=== PATIENT | female | born 1950 | race Caucasian/White ===

== ENCOUNTER → 2017-01-22 | Outpatient (REF) | payer MEDICARE, OTHER ==
[~2017-01-22] MED LIST: ALLE180T33 PO; ASPI81TA85 PO; ESTR3TA PO; LEXA1TAB PO; VITA1TAB7 PO; VITAD1000T PO; ZIAC1TAB PO
== END ==
LOC: M LAB REF 17:20
PROVIDERS: ATTEND Nurse Practitioner Adult Health
DX: Z01.89 Encounter for other specified special examinations (principal)

== ENCOUNTER → 2017-05-22 | Outpatient (CLI) | payer MEDICARE, OTHER ==
--- NOTE | 2017-05-22 10:22 | REP ---
BILATERAL DIGITAL SCREENING MAMMOGRAM: 05/22/2017 CLINICAL HISTORY: Screening examination. She has no current complaints, personal or family history of breast cancer. COMPARISON: 05/20/2016, 05/12/2015, 02/09/2014 mammogram. FINDINGS. Standard two-view mammography performed. There are scattered fibroglandular elements in a pattern and distribution is generally symmetric and not much change from multiple prior studies. Scattered small benign appearing calcifications are present of doubtful clinical significance. Scattered lymph nodes are seen in the axilla. there is no dominant mass, clustered microcalcification, skin thickening or architectural distortion or other secondary signs of malignancy. However, there is a small nodular area of tissue asymmetry left breast on the CC view only as a change from multiple prior studies. IMPRESSION: BIRADS ACR category 0, incomplete, additional imaging acquired. A left spot CC view and any other images and/or breast ultrasound should be performed at the discretion of the reviewing radiologist at the time of that diagnostic examination. BI-RADS/ACR category 0 mammogram, incomplete. Additional imaging and/or prior images are needed before a final assessment can be assigned. This mammogram was interpreted with the aid of an FDA-approved computer-aided detection system. A. Negative x-ray reports should not delay biopsy if a dominant or clinically suspicious mass is present. B. Four to eight percent of cancers are not identified by x-ray. C. Adenosis and dense breasts may obscure an underlying neoplasm. The patient states she/he had a clinical breast exam in November 2015. The patient letter being requested is M0.
== END ==
LOC: M WHC 08:57
PROVIDERS: ATTEND Nurse Practitioner Adult Health
DX: Z12.31 Encounter for screening mammogram for malignant neoplasm of breast (principal)

== ENCOUNTER → 2017-05-27 | Outpatient (CLI) | payer MEDICARE, OTHER ==
--- NOTE | 2017-05-27 14:39 | REP ---
DIAGNOSTIC MAMMOGRAM LEFT BREAST WITH LEFT BREAST ULTRASOUND: Diagnostic mammogram left breast performed with multiple compression views obtained. Correlation is made with prior study of 05/22/2017, which showed some mild asymmetric fibroglandular density in the left breast. The spot compression views again show ill-defined fibroglandular density laterally on the left CC view. Based on the rolled views, this is located inferiorly in the left breast. The left MLO and ML views show no change compared to multiple prior exams. Real-time sonographic evaluation of the lower outer left breast demonstrates dense fibroglandular tissue with scattered dilated ducts, but no suspicious cystic or sold nodule. IMPRESSION: ACR 3 probably benign. There does appear to be some mild asymmetric fibroglandular tissue in the lower outer left breast. This has a nonsuspicious appearance on the spot compression views and no suspicious sonographic abnormality is seen in this region. The findings are probably benign. Recommend followup mammogram of the left breast in six months. BI-RADS/ACR category 3 mammogram. Probably benign findings. Initial short-term followup (usually 6 month) examination. This mammogram was interpreted with the aid of an FDA-approved computer-aided detection system. The patient letter being requested is M3. Signed by Hilario Lovelace MD 05/27/2017 05:05 P
== END ==
LOC: M RAD 11:54
PROVIDERS: ATTEND Nurse Practitioner Adult Health
DX: N60.32 Fibrosclerosis of left breast (principal)
CPT/HCPCS: 76642; G0206

== ENCOUNTER → 2018-05-25 | Outpatient (CLI) | payer MEDICARE, OTHER | LOC: M RAD 08:48 | DX: N60.32 Fibrosclerosis of left breast (principal); Z12.31 Encounter for screening mammogram for malignant neoplasm of breast (principal); Z09 Encounter for follow-up examination after completed treatment for conditions other than malignant neoplasm | CPT/HCPCS: 77066 ==

== ENCOUNTER → 2019-01-05 | Outpatient (CLI) | payer MEDICARE, OTHER ==
--- NOTE | 2019-01-05 14:43 | REP ---
DIGITAL DIAGNOSTIC UNILATERAL LEFT BREAST MAMMOGRAPHY WITH CAD AND 3D TOMOGRAPHY: HISTORY: BIRADS category 3 probably benign study. 6-month followup exam. Comparison is made with prior left breast imaging from May 25, 2018, January 20, 2018, May 27, 2017. FINDINGS: Routine views of the left breast are augmented by magnified focal spot views. These demonstrate that the area in question in the inferomedial aspect of the left breast appears unchanged over the interval since the May 27, 2017 prior study. No neodensity is seen. There are scattered secretory calcifications. Normal appearing lymph nodes are visible in the left axilla. No worrisome skin change. IMPRESSION: BIRADS 3: BI-RADS/ACR category 3 mammogram. Probably Benign Findings. Stable BIRADS category 3 probably benign left breast mammography. Repeat bilateral mammography recommended in 6 months, screening study on the right. This mammogram was interpreted with the aid of an FDA-approved computer-aided detection system. The patient states she had a clinical breast exam in January 2018. The patient letter being requested is m3. Electronically Signed by Stanislaw Betancourt MD 01/05/2019 05:15 P
== END ==
LOC: M RAD 11:05
PROVIDERS: ATTEND Nurse Practitioner Adult Health
DX: R92.1 Mammographic calcification found on diagnostic imaging of breast (principal)
CPT/HCPCS: 77065; G0279

== ENCOUNTER 2019-07-11 10:31 | Inpatient (IN) | payer MEDICARE, OTHER ==
[~2019-07-11] VITALS: Ht 157.5 cm; Wt 86.3 kg
[~2019-07-11 10:31] MED LIST changes: +CHOL100029 PO; -VITAD1000T PO
[2019-07-11] MEDS ORDERED: VITA100T90 PO (11:27)
[2019-07-11] MEDS ORDERED: MAGN1CAP PO (11:27)
[2019-07-11] MEDS ORDERED: KRIL1CAP6 PO (11:27)
[2019-07-11] MEDS ORDERED: CVS5000S2 PO (11:27)
--- NOTE | 2019-07-11 12:39 | REP ---
CT BRAIN WITHOUT CONTRAST: HISTORY: Chronic headache. No comparison study. CT FINDINGS: Digital preliminary toe stapler radiograph is unremarkable. On bone window settings, the bony calvarium is intact. There is some vascular calcification in the distal carotid arteries bilaterally. There is no evidence of paranasal sinus or intraorbital disease. On soft tissue window settings, there is an ill-defined low density area in the right occipital lobe consistent with recent infarction. No other infarct is seen. There is no evidence of intracranial hemorrhage. No mass or midline shift is seen. IMPRESSION: Low density in the right occipital lobe consistent with recent infarction. No hemorrhage seen. Vascular calcification. Otherwise negative. Electronically Signed by Stanislaw Betancourt MD 07/11/2019 05:17 P
[2019-07-11] MEDS ORDERED: diphenhydrAMINE INJ 50MG/ML VIAL (J1200) IV ONE (13:00)
[2019-07-11] MEDS ORDERED: NS 1,000 ML IV ONE (13:00)
[2019-07-11] MEDS ORDERED: dexameTHASONE 4 MG/ML 1ML VIAL (J1100) IV ONE (13:00)
[2019-07-11] MEDS ORDERED: KETOROLAC 30 MG/ML VIAL (J1885) IV ONE (13:00)
[2019-07-11] MEDS ORDERED: METOCLOPRAMIDE INJ 10MG/2ML VIAL (J2765) IV ONE (13:00)
[2019-07-11] MEDS ORDERED: MAG SULF 1GM/100ML (MAG RUN) 1 GM in APPROPRIATE DILUENT 1 EA IV ONE (13:00)
[2019-07-11] MEDS ORDERED: SUMAtriptan SUCCINATE 6 MG/0.5 ML VIAL SC ONE (15:45)
[2019-07-11] MEDS ORDERED: ASPIRIN 81 MG CHEW TABLET PO ONE (16:30)
[2019-07-11] MEDS ORDERED: SIMVASTATIN 40 MG TAB PO ONE (16:45)
[2019-07-11 16:53] LABS: BASO % 0.4 % (0.0-1.0); EOS # 0.1 10^3/uL (0.0-0.5); EOS % 1.3 % (0.0-3.0); HEMATOCRIT 39.4 % (36.0-47.0); HEMOGLOBIN 13.1 g/dl (12.0-15.5); LYMPH # 2.3 10^3/uL (1.5-5.0); LYMPH % 21.7 % (24.0-44.0); MEAN CORPUSCULAR HEMOGLOBIN 30.5 pg (27.0-33.0); MEAN CORPUSCULAR HGB CONC 33.2 g/dl (32.0-36.5); MEAN CORPUSCULAR VOLUME 91.6 fl (80.0-96.0); MONO # 0.4 10^3/uL (0.0-0.8); MONO % 3.7 % (0.0-5.0); NEUTROPHILS # 7.5 10^3/uL (1.5-8.5); NEUTROPHILS % 72.5 % (36.0-66.0); PLATELET COUNT, AUTOMATED 237 10^3/uL (150-450); WHITE BLOOD COUNT 10.4 10^3/uL (4.0-10.0)
[2019-07-11 17:05] LABS: INR 1.05; PROTHROMBIN TIME 13.4 SECONDS (11.8-14.0)
[2019-07-11 17:30] LABS: ALBUMIN 3.6 GM/DL (3.2-5.2); ALT/SGPT 26 U/L (12-78); BILIRUBIN,DIRECT < 0.1 MG/DL (0.0-0.2); BILIRUBIN,TOTAL 0.4 MG/DL (0.2-1.0); BLOOD UREA NITROGEN 17 MG/DL (7-18); CARBON DIOXIDE LEVEL 27 MEQ/L (21-32); CHLORIDE LEVEL 104 MEQ/L (98-107); GLOMERULAR FILTRATION RATE > 60.0 (>45); GLUCOSE, FASTING 104 MG/DL (70-100); POTASSIUM SERUM 4.2 MEQ/L (3.5-5.1); SODIUM LEVEL 138 MEQ/L (136-145); TOTAL PROTEIN 7.2 GM/DL (6.4-8.2)
[2019-07-11] MEDS ORDERED: ACETAMINOPHEN TAB 650MG DOSE (2X325MG) PO PRN (17:45)
[2019-07-11] MEDS ORDERED: MAALOX 30 ML SUSP *UDC PO PRN (17:45)
--- NOTE | 2019-07-11 18:14 | HPEPDOC ---
[facility] Medical History & Physical Date of Admission Jul 11, 2019 Date of Service: Jul 11, 2019 History and Physical CHIEF COMPLAINT: [CVA] HISTORY OF PRESENT ILLNESS: [This is a 69yo female with pmhx of noninvasive bladder cancer, and htn who presented to the ed for left sided visual field defect since Thursday. Patient said she was in her normal state of health when she bent down to look for her cat and when she got back up she had a headache with left eye lateral visual field defect. She said her headache improved over the past few days and barely there now, but the lateral visual field loss only started improving since she has been in the hospital. She denied fever, chills, chest pain , sob , palpitations, syncope or nausea or vomiting. ] PAST MEDICAL HISTORY: 1. [non invasive bladder ca - receiving 1-2 session of bcg per year ]. 2. [HTN on meds ]. 3. [depression and anxiety ]. PAST SURGICAL HISTORY: 1. [hysterectomy 2/2 fibroids ]. SOCIAL HISTORY: lives with at home retired quit smoking in 1989 - smoked for 20 yrs 1ppd denied etoh , marijuana or drug use FAMILY HISTORY: mother lived to but had multiple TIAs prior father had renal cancer ALLERGIES: Please see below. HOME MEDICATIONS: Please see below. LABORATORY DATA: See below. IMAGING: [ct scan shows- Low density in the right occipital lobe consistent with recent infarction. No hemorrhage seen. Vascular calcification. Otherwise negative. MICROBIOLOGY: Please see below. ROS - all 10 point review of system is negative except for whats listed in HPI Physical exam Gen: NAD, healthy appearing , HEENT: normocephalic, atraumatic, no discharge from ears or nose, no oropharyngeal erythema or exudate, neck is supple, no lymphadenopathy, trachea midline CVS: RRR, normal S1n S2, no murmur, rubs, or gallops, no edema, no jvd Resp: LCTAB, no rhonchi, wheezes or crackles Abd : soft nontender, normal bowel sounds, no rebound tenderness or guarding MSK: no swelling, full range of motion, strength 5/5 Neuro: AOAx3, no confusion, no focal deficit , no pronator drift, no visual fie ld defect - but does c/o central areas of blind spots - vision is improving per pt, sensation and proprioception intact, cn2-12 intact, PERRLA, EOMI , Psych: normal mood and affect, good judgment ASSESSMENT and Plan subacute cva - c/w aspirin and statin - pt senstive to lipitor and prasvastin -f/u mri /mra head and neck -f/u echo TTE - f/u carotid doppler -tele monitor -neuro checks q2-4h - patient advised to inform us immediately of any function or mental status changes - bp elevated - c/w monitoring for now - defer mgt to neurologist -opthalmologist -Dr. Hall aware will see pt in AM -f/u tsh, hba1c and lipid panel -neurologist following htn -hold meds for tonight unless >220/110 bladder ca - outpt mgt dvt ppx full code , from home, no svc Vital Signs Vital Signs Date Time Temp Pulse Resp B/P (MAP) Pulse Ox O2 Delivery O2 Flow Rate FiO2 07/11/19 14:29 98.0 58 18 173/73 (106) 98 Room Air Laboratory Data Labs 24H Laboratory Tests 2 07/11/19 16:42: Prothrombin Time 13.4, Prothromb Time International Ratio 1.05 07/11/19 16:43: Immature Granulocyte % (Auto) 0.4, White Blood Count 10.4H, Red Blood Count 4.30, Hemoglobin 13.1, Hematocrit 39.4, Mean Corpuscular Volume 91.6, Mean Corpuscular Hemoglobin 30.5, Mean Corpuscular Hemoglobin Concent 33.2, Red Cell Distribution Width 12.8, Platelet Count 237, Neutrophils (%) (Auto) 72.5H, Lymphocytes (%) (Auto) 21.7L, Monocytes (%) (Auto) 3.7, Eosinophils (%) (Auto) 1.3, Basophils (%) (Auto) 0.4, Neutrophils # (Auto) 7.5, Lymphocytes # (Auto) 2.3, Monocytes # (Auto) 0.4, Eosinophils # (Auto) 0.1, Basophils # (Auto) 0.0, Nucleated Red Blood Cells % (auto) 0.0, Anion Gap 7L, Glomerular Filtration Rate > 60.0, Calcium Level 9.0, Aspartate Amino Transf (AST/SGOT) 25, Alanine Aminotransferase (ALT/SGPT) 26, Alkaline Phosphatase 65, Total Bilirubin 0.4, Direct Bilirubin < 0.1, Total Protein 7.2, Albumin 3.6, Albumin/Globulin Ratio 1.00 CBC/BMP Laboratory Tests 07/11/19 16:43 Red Blood Count 4.30, Mean Corpuscular Volume 91.6, Mean Corpuscular Hemoglobin 30.5, Mean Corpuscular Hemoglobin Concent 33.2, Red Cell Distribution Width 12.8, Neutrophils (%) (Auto) 72.5 H, Lymphocytes (%) (Auto) 21.7 L, Monocytes (%) (Auto) 3.7, Eosinophils (%) (Auto) 1.3, Basophils (%) (Auto) 0.4, Neutrophils # (Auto) 7.5, Lymphocytes # (Auto) 2.3, Monocytes # (Auto) 0.4, Eosinophils # (Auto) 0.1, Basophils # (Auto) 0.0 Home Medications Scheduled Bisoprolol/Hydrochlorothiazide (Ziac 5-6.25 mg Tablet) 1 Ea Tab, 1 TAB PO DAILY Conjugated Estrogens (Premarin) 0.3 Mg Tab, 0.3 MG PO DAILY Cyanocobalamin (Vitamin B-12) (Vitamin B12) 5,000 Mcg Tab.rapdis, 5,000 MCG PO DAILY Escitalopram Oxalate (Lexapro) 10 Mg Tab, 10 MG PO DAILY Fexofenadine HCl (Alma Allergy) 180 Mg Tab, 180 MG PO DAILY Krill/Om-3/Dha/Epa/Phospho/Ast (Krill Oil 500 mg Softgel) 1 Each Capsule, 1 CAP PO DAILY Magnesium Oxide (Magnesium) 500 Mg Capsule, 500 MG PO BID Pyridoxine HCl (Vitamin B6) (Vitamin B-6) 100 Mg Tablet, 100 MG PO DAILY Vitamin D (Vitamin D3) 1,000 Units Tab, 1,000 UNITS PO DAILY Allergies Coded Allergies: No Known Allergies (Verified Allergy, Unknown, 07/11/19) atorvastatin (Verified Adverse Reaction, Unknown, MUSCLE ACHES, 07/11/19) A-FIB/CHADSVASC A-FIB History Current/History of A-Fib/PAF?: No Current PO Anticoag Therapy: No Age/Risk Factor Scoring CHADSVASC: CHADSVASC Response (Comments) Value Age Risk Factor Age 65-74 years old 1 Gender Risk Factor Female 1 Hx of CHF No 0 Hx of HTN Yes 1 Hx of Stroke/TIA/or VTE Yes 2 Hx of Diabetes No 0 Hx of Vascular Disease No 0 Total 5 Treatment Treatment ordered: NONE Reason Anticoagulant not given: Not indicated/[id number] LIVAN MOORE MD Jul 11, 2019 18:14
[2019-07-11] MEDS ORDERED: PROHANCE 279.3MG/ML 15ML VIAL (A9576) As Ordered ONE (18:38)
[2019-07-11 19:03] LABS: CHOLESTEROL LEVEL 244 MG/DL (<200); CHOLESTEROL RISK RATIO 3.436 (<5); HDL CHOLESTEROL 71 MG/DL (>40); LDL CHOLESTEROL 146 MG/DL (<100); NON-HDL-C 173 MG/DL; TRIGLYCERIDES LEVEL 136 MG/DL (<150); TROPONIN I < 0.02 NG/ML (< 0.10)
[2019-07-11 19:04] LABS: HEMOGLOBIN A1c 5.5 %
--- NOTE | 2019-07-11 20:43 | REPVR ---
PROCEDURE INFORMATION: Exam: MR Head Without Contrast Exam date and time: 07/11/2019 7:24 PM Clinical history: 69 years old, female; Pain; Headache not specified; Patient HX: H/a vertigo, lt sided vision changes, started 3 days ago; Additional info: R occiital lobe stroke TECHNIQUE: Imaging protocol: MR of the head without contrast. COMPARISON: CT Head without contrast 07/11/2019 12:12 PM FINDINGS: Brain: Right occipital true diffusion restriction with correlative cytotoxic edema on the T2-weighted images consistent with subacute infarction in the right [facility] territory. There is no evidence of hemorrhagic conversion. Ventricles: No ventriculomegaly. Bones/joints: Unremarkable. Soft tissues: Unremarkable. Sinuses: Normal as visualized. No acute sinusitis. Mastoid air cells: Normal as visualized. No mastoid effusion. Orbits: Unremarkable. IMPRESSION: Subacute right occipital infarct. Electronically signed by: Vicki Hrendon On 07/11/2019 20:42:44 PM
--- NOTE | 2019-07-11 20:47 | REPVR ---
PROCEDURE INFORMATION: Exam: MR Angiogram Head Without Contrast, Arteries Exam date and time: 07/11/2019 7:24 PM Clinical history: 69 years old, female; Pain; Headache; Patient HX: H/a vertigo, lt sided vision changes, started 3 days ago; Additional info: R occiital lobe stroke TECHNIQUE: Imaging protocol: MR angiogram head without contrast. Exam focused on the arteries. 3D rendering: MIP reconstructed images were created and reviewed. COMPARISON: CT Head without contrast 07/11/2019 12:12 PM FINDINGS: Right internal carotid artery: Unremarkable. Intracranial segment is patent with no significant stenosis. No aneurysm. Right anterior cerebral artery: Unremarkable. No occlusion or significant stenosis. No aneurysm. Right middle cerebral artery: The right middle cerebral artery demonstrates a 2 mm segmental near occlusion in the M1 segment. There is a moderate stenosis in the distal M1 just proximal to the trifurcation. Right posterior cerebral artery: The right posterior cerebral artery demonstrates a segmental occlusion or near occlusion at the junction of the P1 and P2 segments spanning a length of approximately 3 mm. Right vertebral artery: Unremarkable. No occlusion or significant stenosis. No aneurysm. Left internal carotid artery: Unremarkable. Intracranial segment is patent with no significant stenosis. No aneurysm. Left anterior cerebral artery: Unremarkable. No occlusion or significant stenosis. No aneurysm. Left middle cerebral artery: Unremarkable. No occlusion or significant stenosis. No aneurysm. Left posterior cerebral artery: Unremarkable. No occlusion or significant stenosis. No aneurysm. Left vertebral artery: Unremarkable. No occlusion or significant stenosis. No aneurysm. Basilar artery: Unremarkable. No occlusion or significant stenosis. No aneurysm. IMPRESSION: 1. 3 mm segmental occlusion or near occlusion of the right DOORKEEPER at the junction of the P1 and P2 segments. 2. 2 mm segmental near occlusion of the right middle cerebral artery in the M1 segment. Electronically signed by: Vicki Herndon On 07/11/2019 20:47:15 PM
--- NOTE | 2019-07-11 20:51 | REPVR ---
PROCEDURE INFORMATION: Exam: MR Angiography Neck Without Contrast Exam date and time: 07/11/2019 7:37 PM Clinical history: 69 years old, female; Pain; Headache; Patient HX: H/a vertigo, lt sided vision changes, started 3 days ago; Additional info: R occiital lobe stroke TECHNIQUE: Imaging protocol: Magnetic resonance angiography images of the neck without intravenous contrast. 3D rendering: MIP reconstructed images were created and reviewed. Contrast material: PROHANCE; Contrast volume: 25 ml; Contrast route: 20G ANGIO; COMPARISON: MRA BRAIN W/O CONTRAST 07/11/2019 6:33 PM FINDINGS: Right common carotid artery: No definite stenosis or occlusion. Right internal carotid artery: No definite stenosis or occlusion. Right external carotid artery: No definite stenosis or occlusion. Right vertebral artery: No definite stenosis or occlusion. Left common carotid artery: No definite stenosis or occlusion. Left internal carotid artery: No definite stenosis or occlusion. Left external carotid artery: No definite stenosis or occlusion. Left vertebral artery: No definite stenosis or occlusion. IMPRESSION: Considering motion artifacts, no acute vascular findings or significant stenoses suspected in the neck. COMMENT: Reference per NASCET criteria for degree of stenosis: Mild: less than 50% stenosis. Moderate: 50-69% stenosis. Severe: 70-94% stenosis. Near occlusion: 95-99% stenosis. Electronically signed by: Vicki Herndon On 07/11/2019 20:51:11 PM
--- NOTE | 2019-07-11 20:59 | REPVR ---
PROCEDURE INFORMATION: Exam: US Duplex Bilateral Extracranial Arteries Exam date and time: 07/11/2019 8:11 PM Clinical history: 69 years old, female; Other: Headache; Additional info: CVA TECHNIQUE: Imaging protocol: Real-time Duplex ultrasound scan of the Bilateral carotid and vertebral arteries combining lovelace scale, color Doppler and spectral waveform analysis. COMPARISON: MRA CAROTID W/O FOL WITH 07/11/2019 7:09:33 PM FINDINGS: Right common carotid artery: Unremarkable. No occlusion or stenosis. Waveforms are normal. Right internal carotid artery: Lovelace scale images demonstrate mild proximal right ICA plaque. Right ICA/CCA ratio: Within normal limits. 0.92. Right external carotid artery: Lovelace scale images demonstrate mild proximal right ECA plaque. Right vertebral artery: Unremarkable. Antegrade flow Left common carotid artery: Unremarkable. No occlusion or stenosis. Waveforms are normal. Left internal carotid artery: Lovelace scale images demonstrate mild proximal left ICA plaque. Left ICA/CCA ratio: Within normal limits. 0.89. Left external carotid artery: Lovelace scale images demonstrate mild proximal left ECA plaque. Left vertebral artery: Unremarkable. Antegrade flow. IMPRESSION: 1. Some limitations in evaluating the bifurcations are due to the medialized course in the neck. 2. No hemodynamically significant stenoses identified. Less than 50% right ICA stenosis and less than 50% left ICA stenosis. 3. The vertebral arteries appear patent and antegrade. COMMENT: Carotid Stenosis Reference using SRU criteria: Mild: less than 50% stenosis. ICA PSV is less than 125 cm/second and plaque or intimal thickening is visible. Moderate: 50-69% stenosis. ICA PSV is 125 to 230 cm/second and plaque is visible. Severe: 70-94% stenosis. ICA PSV is more than 230 cm/second and visible plaque and lumen narrowing are seen. Near occlusion: 95-99% stenosis. ICA PSV is variable and significant plaque and luminal narrowing are seen. Occluded: 100% stenosis. No flow identified. Electronically signed by: Vicki Herndon On 07/11/2019 20:58:56 PM
[2019-07-11] MEDS: DOCUSATE SODIUM 100 MG CAP PO SCH (21:00)
--- NOTE | 2019-07-11 21:53 | ECGEPIP ---
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
[2019-07-12] VITALS (7 sets, daily range): BP systolic 125–184; BP diastolic 60–80
[2019-07-12 05:51] LABS: HEMATOCRIT 35.8 % (36.0-47.0); MEAN CORPUSCULAR HEMOGLOBIN 30.2 pg (27.0-33.0); MEAN CORPUSCULAR HGB CONC 33.5 g/dl (32.0-36.5); MEAN CORPUSCULAR VOLUME 90.2 fl (80.0-96.0); PLATELET COUNT, AUTOMATED 243 10^3/uL (150-450); RED BLOOD COUNT 3.97 10^6/uL (4.00-5.40); WHITE BLOOD COUNT 12.7 10^3/uL (4.0-10.0)
[2019-07-12 06:10] LABS: BLOOD UREA NITROGEN 18 MG/DL (7-18); CALCIUM LEVEL 8.7 MG/DL (8.8-10.2); CARBON DIOXIDE LEVEL 24 MEQ/L (21-32); CHLORIDE LEVEL 106 MEQ/L (98-107); CREATININE FOR GFR 0.84 MG/DL (0.55-1.30); GLOMERULAR FILTRATION RATE > 60.0 (>45); GLUCOSE, FASTING 128 MG/DL (70-100); MAGNESIUM LEVEL 2.2 MG/DL (1.8-2.4); POTASSIUM SERUM 4.5 MEQ/L (3.5-5.1); SODIUM LEVEL 137 MEQ/L (136-145)
--- NOTE | 2019-07-12 08:53 | CR ---
DATE OF CONSULTATION: 07/12/2019 REQUESTING PROVIDER: Hospitalist. REASON FOR CONSULTATION: Acute stroke. The patient is a 69-year-old female with past medical history significant for episodic vertigo, history of ocular migraines present with chief complaint of having a visual disturbance, seeing a black dark spot out of her left eye since this past Thursday. The patient found that the region did not resolve the way that migraines did and came to the emergency department. Head CT reveals evidence of an acute subacute right occipital lobe stroke. The patient will have an MRI of the brain MR angiogram head and neck as well as start aspirin and statin therapy. The patient's is intolerant to Lipitor on propofol due to myalgias. Alternative statin therapy considered by the primary care team. The patient is noted to have a carotid bruit possible cardiac murmur as well. REVIEW OF SYSTEMS: The patient denies any visual field loss but does have some visual disturbance in her left eye. She sees in the periphery dark [place]. The patient denies any weakness or numbness ataxia, dysarthria, aphasia, vertigo at this time. 14-point review of systems obtained and is negative except as per HPI. PAST MEDICAL HISTORY: Episodic vertigo, history of bladder cancer status post BCG injections for 3 years and surgical resection, hypertension, ocular migraines. PAST SURGICAL HISTORY: Hysterectomy, bladder resection. SOCIAL HISTORY: The patient denies use any tobacco, alcohol or illicit drugs. FAMILY HISTORY: Mother with multiple TIAs. PHYSICAL EXAMINATION: Blood pressure is 172/73, pulse rate is 58, respiratory rate is 18, temperature is 98 degrees Fahrenheit, oxygenation 98 on room air. Current height 5 feet 2 inches, weight 84.5 kg. The patient is awake, alert, oriented to person, place and time. Speech, comprehension, language are intact without aphasia. Pupils are 3 mm round, reactive to light. Extraocular movements are intact in all directions without any significant nystagmus. Sensation V1, V2-V3 is intact to light touch. There is no facial asymmetry on activation palate elevates symmetrically. Tongue is midline. No weakness of sternocleidomastoids bilaterally. Hearing is subjectively equal to finger rub. No pronator drift. Strength is 5/5 including bilateral deltoids, biceps, triceps, handgrip, iliopsoas, quadriceps, anterior tibialis. Deep tendon reflexes are two throughout. Babinski signs are absent. Sensory is intact to light touch in all four extremities. Coordination: Normal [id number] gross ataxia, dysmetria. ASSESSMENT: 1. 69-year-old female with visual disturbance occurring this past Thursday found to have a acute subacute right occipital lobe stroke. PLAN: 1. Obtain MRI brain MR angiogram head without contrast. Obtain MRI carotid with without conscious obtain echocardiogram. Start aspirin 81 mg by mouth daily. Start statin therapy other than Lipitor "the patient could not tolerate", check lipid panel the patient reports diet-controlled. 2. PT OT evaluation. Continue telemetry monitoring. Keep systolic pressures 140-180. 3. Case discussed with primary team.
[2019-07-12] MEDS ORDERED: ASPIRIN 325 MG TAB PO SCH (09:00)
[2019-07-12] MEDS: DOCUSATE SODIUM 100 MG CAP PO SCH ×2 (09:37→20:58)
[2019-07-12] MEDS: ENOXAPARIN 40 MG/0.4 ML SYRINGE (J1650) SC SCH (09:37)
[2019-07-12] MEDS ORDERED: ASPIRIN 81 MG ENTERIC TAB PO SCH (09:49)
[2019-07-12] MEDS: ASPIRIN 81 MG ENTERIC TAB PO SCH (10:18)
[2019-07-12] MEDS ORDERED: TROPICAMIDE 1% OPHTH SOLN 2ML OU ONE (11:00)
[2019-07-12] MEDS ORDERED: PHENYLEPHRINE 2.5% OPHTH SOL 2ML OU ONE (11:00)
--- NOTE | 2019-07-12 19:25 | IPNPDOC ---
Text Note Date of Service The patient was seen on 07/12/19. NOTE Pt was seen at bedside today and states that the headache she had on admission is no longer present. She states she is having some decreased visual acuity in her left peripheral visual field, but on confrontation testing was able to correctly answer my questions. She stated that when looking at my face while 3 feet away directly in front of her she was unable to see my right eye. She denies any other changes, acute problems, acute muscle strength loss, hyperreflexia, or sensation loss. Physical Exam: Pulmonary: Lungs CTA B/L Cardiovascular: Regular rhythm, no murmurs, knocks, rubs noted Abdomen: No pain on palpation or guarding noted. Normal bowel sounds in all 4 quadrants. MSK: Muscle strength 5/5 for UE and LE Flexion and Extension. Cranial Nerves II- XII are intact. Psych: Well-mannered and cooperative to exam. Alert and aware X3 Assessment and Plan: #Subacute CVA: Continue treatment with aspirin, Simvastatin, Enoxaparin and monitor for acute loss of vision or other mental deficits. Patient has received imaging of brain including MRA, MRI, and CT. Patients MRI-melvin demonstrated a right occipital lobe infarct which appears to be subacute. Currently pending echocardiogram report. #HTN: Holding antihypertensives for permissive hypertension per Neurology suggestion with SBP target 140-180. Anticipate starting home medications tomorrow. #DVT Prophylaxis: Continue Enoxaparin Disposition: Awaiting echocardiogram report Clay THAO, I+O VSClay, I+O Laboratory Tests 07/12/19 05:28 Red Blood Count 3.97 L, Mean Corpuscular Volume 90.2, Mean Corpuscular Hemoglobin 30.2, Mean Corpuscular Hemoglobin Concent 33.5, Red Cell Distribution Width 12.4, Calcium Level 8.7 L Vital Signs Date Time Temp Pulse Resp B/P (MAP) Pulse Ox O2 Delivery O2 Flow Rate FiO2 07/12/19 15:47 96.8 73 18 175/73 (107) 97 07/12/19 00:34 Room Air I&O- Last 24 Hours up to 6 AM 07/12/19 05:59 Intake Total 1100 ml Output Total 300 ml Balance 800 ml GME ATTESTATION GME ATTESTATION My faculty preceptor for this patient encounter was physically present during the encounter and was fully available. All aspects of the patient interview, examination, medical decision making process, and medical care plan development were reviewed and approved by the faculty preceptor. The faculty preceptor is aware and concurs with the plan as stated in the body of this note and will attest to such by his/her cosignature. ATTENDING NOTE Patient was seen and examined by me this morning with the residents. Agree with the above assessment and plan KASANDRA PENNY OMS-3 Jul 12, 2019 19:25 PADMINI MEYERS DO Jul 12, 2019 19:27 CORKY JACKSON MD Jul 13, 2019 13:12
[2019-07-12] MEDS ORDERED: SIMVASTATIN 40 MG TAB PO SCH (21:00)
[2019-07-12] MEDS ORDERED: CLOPIDOGREL 75 MG TAB PO ONE (21:45)
--- NOTE | 2019-07-12 23:36 | IPN ---
NEUROLOGY PROGRESS NOTE DATE: 07/12/2019 SUBJECTIVE: The patient examined at bedside and states she feels better today. No longer having any headache, but still endorses blurry vision in the left eye. However, she states that this is improving. She has no complaints. Her blood pressure is still in the permissive hypertension range. The patient is asymptomatic. She underwent Magnetic Resonance Imaging (MRI) of the brain, which confirmed subacute right occipital infarct and Magnetic Resonance Angiography (MRA) that reported significant occlusion of the right MAILING MACHINE HELPER and right middle cerebral artery as well. Is tolerating aspirin and simvastatin well. No paresthesia, slurred speech, confusion, nausea, vomiting, new visual changes, eye pain, or ear pain today. PHYSICAL EXAMINATION: VITALS: Temperature 98.5, pulse 67, respirations 18, blood pressure (BP) 153/69, MAP of 97, pulse oximetry 98% on room air. She is restring comfortably in bed, in no acute distress, alert and oriented times 3, fully conversant. Motor and sensation is fully intact with the patient reporting that she is at baseline. Pupils: Anicteric, equal, round, reactive to light and accommodation. Extraocular movements intact. Facial sensations and sensation in upper and extremities are all intact and equal bilaterally. No facial droop or slurred or tongue deviation. No pronator drift. Negative Babinski. Motor strength is 5/5 in all extremities. The right lower extremity strength has improved from prior day. Normal finger to nose and [id number]. 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 PLAN: Given her significant stenosis of the middle cerebral artery (MCA) and MAILING MACHINE HELPER on the right, the patient should also be started on Plavix and continued on dual antiplatelet therapy, on aspirin 81 mg and Plavix 75 mg and continue on a statin. She appears to be tolerating simvastatin well. Lipid panel reveals uncontrolled levels, which aligns with the patient's history of not taking Lipitor or Pravachol due to arthralgias and myalgias. The importance of compliance was discussed with the patient, who is agreeable to continuing these new medications. Physical therapy (PT) and occupational therapy (OT) for functional optimization and may continue permissive hypertension for a total of 48 hours from the time of admission Continue neuro checks. Echocardiogram is currently pending. Follow-up with Dr. Asencio in clinic in 4-6 weeks of discharge. BROOKLYNN
[2019-07-13] VITALS: BP 150/70
[2019-07-13 04:00] VITALS: BP 146/67
[2019-07-13 07:30] VITALS: BP 136/66
[2019-07-13 08:00] VITALS: BP 152/68
[2019-07-13] MEDS: DOCUSATE SODIUM 100 MG CAP PO SCH (09:00)
[2019-07-13] MEDS ORDERED: BISOPROLOL FUMARATE 5 MG TAB PO SCH (09:00)
[2019-07-13] MEDS ORDERED: HYDROCHLOROthiazide 6.25MG PER 1/4TAB PO SCH (09:00)
[2019-07-13] MEDS ORDERED: CLOPIDOGREL 75 MG TAB PO SCH (09:00)
[2019-07-13] MEDS: ASPIRIN 81 MG ENTERIC TAB PO SCH (09:14)
[2019-07-13] MEDS: ENOXAPARIN 40 MG/0.4 ML SYRINGE (J1650) SC SCH (09:15)
[2019-07-13] MEDS ORDERED: SIMV40TA2 PO (11:08)
[2019-07-13] MEDS ORDERED: CLOP75TA2 PO (11:08)
[2019-07-13 11:47] VITALS: BP 168/78
--- NOTE | 2019-07-13 14:18 | DS.PDOC ---
Discharge Summary General Date of Admission Jul 11, 2019 at 17:36 Date of Discharge 07/13/19 Primary Care Physician: Jr Dejesus Collins Attending Physician: CORKY JACKSON MD Specialist/Consultants Involve: TIA PENNINGTON MD Discharge Summary PROCEDURES PERFORMED DURING STAY: [None]. ADMITTING DIAGNOSES: 1. Subacute CVA DISCHARGE DIAGNOSES: 1. Acute/Subacute right occipital lobe stroke COMPLICATIONS/CHIEF COMPLAINT: CVA. HISTORY OF PRESENT ILLNESS: Patient is a 69 year old female who presented to the [facility] with complaint of visual disturbance described as a black spot in her left temporal visual field since last Thursday. Patient stated that she has a history of episodic vertigo and ocular migraines. She felt her vision issue was secondary to that however it did not resolve. The patient subsequently reported to the ER where a head CT revealed an acute/subacute right occipital stroke. Patient was seen by Neurology in the ER who evaluated her. Patient was started on aspirin, plavix and lipitor. Patient was admitted to hospitalist service and received additional imaging including an MRI of the brain which demonstrated a subacute right occipital infarct. During the patients hospital course she had no new complaints. she continued to have her visual disturbance in her left temporal visual field. Patient was assessed for risk factors. She was found to have hyperlipidemia and HTN. She is a nonsmoker. She was taking Estrogen as an outpatient with a history of ocular migraines. Her estrogen was discontinued. The patient had received an echocardiogram with report pending. On telemetry she demonstrated normal sinus rhythm and patient was discharged with plan to follow-up for echocardiogram results . DISCHARGE MEDICATIONS: Please see below. ALLERGIES: Please see below. PHYSICAL EXAMINATION ON DISCHARGE: VITAL SIGNS: Please see below. GENERAL: Awake, alert and oriented. Appears in no acute distress. Sitting comfortably on side of bed. Conversive HEENT: Atraumatic, normocephalic. Eyes are nonicteric. Trachea is midline. No palpable cervical lymphadenopathy. CARDIOVASCULAR EXAMINATION: Normal S1, S2. Regular rate and rhythm. No clicks rubs, or murmurs. RESPIRATORY EXAMINATION: Clear vesicular breath sounds bilaterally with good re spiratory effort. No wheezes, rhonchi or rales. No accessory muscle use ABDOMINAL EXAMINATION: Soft, nondistended. Nontender to palpation in all 4 quadrants. No rebound tenderness or guarding. Normoactive bowel sounds EXTREMITIES: No edema. Full and equal pulses in bilateral upper and lower extremities. Bilateral high foot arches SKIN: No rashes or lesions NEUROLOGICAL EXAMINATION: CN 2-12 grossly intact. 5/5 strength testing in upper and lower extremities. Sensation intact throughout. PSYCHIATRIC EXAMINATION: Mood and affect appear appropriate for situation LABORATORY DATA: Please see below. IMAGING: CT BRAIN WITHOUT CONTRAST: HISTORY: Chronic headache. No comparison study. CT FINDINGS: Digital preliminary elementary supervisor radiograph is unremarkable. On bone window settings, the bony calvarium is intact. There is some vascular calcification in the distal carotid arteries bilaterally. There is no evidence of paranasal sinus or intraorbital disease. On soft tissue window settings, there is an ill-defined low density area in the right occipital lobe consistent with recent infarction. No other infarct is seen. There is no evidence of intracranial hemorrhage. No mass or midline shift is seen. IMPRESSION: Low density in the right occipital lobe consistent with recent infarction. No hemorrhage seen. Vascular calcification. Otherwise negative. Electronically Signed by Stanislaw Betancourt MD 07/11/2019 05:17 P PROCEDURE INFORMATION: Exam: MR Angiography Neck Without Contrast Exam date and time: 07/11/2019 7:37 PM Clinical history: 69 years old, female; Pain; Headache; Patient HX: H/a vertigo, lt sided vision changes, started 3 days ago; Additional info: R occiital lobe stroke TECHNIQUE: Imaging protocol: Magnetic resonance angiography images of the neck without intravenous contrast. 3D rendering: MIP reconstructed images were created and reviewed. Contrast material: PROHANCE; Contrast volume: 25 ml; Contrast route: 20G ANGIO; COMPARISON: MRA BRAIN W/O CONTRAST 07/11/2019 6:33 PM FINDINGS: Right common carotid artery: No definite stenosis or occlusion. Right internal carotid artery: No definite stenosis or occlusion. Right external carotid artery: No definite stenosis or occlusion. Right vertebral artery: No definite stenosis or occlusion. Left common carotid artery: No definite stenosis or occlusion. Left internal carotid artery: No definite stenosis or occlusion. Left external carotid artery: No definite stenosis or occlusion. Left vertebral artery: No definite stenosis or occlusion. IMPRESSION: Considering motion artifacts, no acute vascular findings or significant stenoses suspected in the neck. COMMENT: Reference per NASCET criteria for degree of stenosis: Mild: less than 50% stenosis. Moderate: 50-69% stenosis. Severe: 70-94% stenosis. Near occlusion: 95-99% stenosis. Electronically signed by: Vicki Herndon On 07/11/2019 20:51:11 PM PROCEDURE INFORMATION: Exam: MR Head Without Contrast Exam date and time: 07/11/2019 7:24 PM Clinical history: 69 years old, female; Pain; Headache not specified; Patient HX: H/a vertigo, lt sided vision changes, started 3 days ago; Additional info: R occiital lobe stroke TECHNIQUE: Imaging protocol: MR of the head without contrast. COMPARISON: CT Head without contrast 07/11/2019 12:12 PM FINDINGS: Brain: Right occipital true diffusion restriction with correlative cytotoxic edema on the T2-weighted images consistent with subacute infarction in the right REGISTERED ART THERAPIST territory. There is no evidence of hemorrhagic conversion. Ventricles: No ventriculomegaly. Bones/joints: Unremarkable. Soft tissues: Unremarkable. Sinuses: Normal as visualized. No acute sinusitis. Mastoid air cells: Normal as visualized. No mastoid effusion. Orbits: Unremarkable. IMPRESSION: Subacute right occipital infarct. Electronically signed by: Vicki Herndon On 07/11/2019 20:42:44 PM PROCEDURE INFORMATION: Exam: MR Angiogram Head Without Contrast, Arteries Exam date and time: 07/11/2019 7:24 PM Clinical history: 69 years old, female; Pain; Headache; Patient HX: H/a vertigo, lt sided vision changes, started 3 days ago; Additional info: R occiital lobe stroke TECHNIQUE: Imaging protocol: MR angiogram head without contrast. Exam focused on the arteries. 3D rendering: MIP reconstructed images were created and reviewed. COMPARISON: CT Head without contrast 07/11/2019 12:12 PM FINDINGS: Right internal carotid artery: Unremarkable. Intracranial segment is patent with no significant stenosis. No aneurysm. Right anterior cerebral artery: Unremarkable. No occlusion or significant stenosis. No aneurysm. Right middle cerebral artery: The right middle cerebral artery demonstrates a 2 mm segmental near occlusion in the M1 segment. There is a moderate stenosis in the distal M1 just proximal to the trifurcation. Right posterior cerebral artery: The right posterior cerebral artery demonstrates a segmental occlusion or near occlusion at the junction of the P1 and P2 segments spanning a length of approximately 3 mm. Right vertebral artery: Unremarkable. No occlusion or significant stenosis. No aneurysm. Left internal carotid artery: Unremarkable. Intracranial segment is patent with no significant stenosis. No aneurysm. Left anterior cerebral artery: Unremarkable. No occlusion or significant stenosis. No aneurysm. Left middle cerebral artery: Unremarkable. No occlusion or significant stenosis. No aneurysm. Left posterior cerebral artery: Unremarkable. No occlusion or significant stenosis. No aneurysm. Left vertebral artery: Unremarkable. No occlusion or significant stenosis. No aneurysm. Basilar artery: Unremarkable. No occlusion or significant stenosis. No aneurysm. IMPRESSION: 1. 3 mm segmental occlusion or near occlusion of the right REGISTERED ART THERAPIST at the junction of the P1 and P2 segments. 2. 2 mm segmental near occlusion of the right middle cerebral artery in the M1 segment. Electronically signed by: Vicki Herndon On 07/11/2019 20:47:15 PM PROCEDURE INFORMATION: Exam: US Duplex Bilateral Extracranial Arteries Exam date and time: 07/11/2019 8:11 PM Clinical history: 69 years old, female; Other: Headache; Additional info: CVA TECHNIQUE: Imaging protocol: Real-time Duplex ultrasound scan of the Bilateral carotid and vertebral arteries combining lovelace scale, color Doppler and spectral waveform analysis. COMPARISON: MRA CAROTID W/O FOL WITH 07/11/2019 7:09:33 PM FINDINGS: Right common carotid artery: Unremarkable. No occlusion or stenosis. Waveforms are normal. Right internal carotid artery: Lovelace scale images demonstrate mild proximal right ICA plaque. Right ICA/CCA ratio: Within normal limits. 0.92. Right external carotid artery: Lovelace scale images demonstrate mild proximal right ECA plaque. Right vertebral artery: Unremarkable. Antegrade flow Left common carotid artery: Unremarkable. No occlusion or stenosis. Waveforms are normal. Left internal carotid artery: Lovelace scale images demonstrate mild proximal left ICA plaque. Left ICA/CCA ratio: Within normal limits. 0.89. Left external carotid artery: Lovelace scale images demonstrate mild proximal left ECA plaque. Left vertebral artery: Unremarkable. Antegrade flow. IMPRESSION: 1. Some limitations in evaluating the bifurcations are due to the medialized course in the neck. 2. No hemodynamically significant stenoses identified. Less than 50% right ICA stenosis and less than 50% left ICA stenosis. 3. The vertebral arteries appear patent and antegrade. COMMENT: Carotid Stenosis Reference using SRU criteria: Mild: less than 50% stenosis. ICA PSV is less than 125 cm/second and plaque or intimal thickening is visible. Moderate: 50-69% stenosis. ICA PSV is 125 to 230 cm/second and plaque is visible. Severe: 70-94% stenosis. ICA PSV is more than 230 cm/second and visible plaque and lumen narrowing are seen. Near occlusion: 95-99% stenosis. ICA PSV is variable and significant plaque and luminal narrowing are seen. Occluded: 100% stenosis. No flow identified. Electronically signed by: Vicki Herndon On 07/11/2019 20:58:56 PM PROGNOSIS: Good ACTIVITY: [As tolerated]. DIET: As tolerated DISCHARGE PLAN: Patient is to be discharged home with follow-up with her PCP in 1-2 weeks. She is to follow-up with Neurology in 4-6 weeks. She is to follow-up with Party Demonstrator. Patient was instructed to discontinue her Estrogen until she is evaluated by her PCP and Neurologist. Patient was advised to avoid driving as she complains of peripheral vision loss. She is to return to the hospital if her symptoms return or worsen DISPOSITION: Home with appropriate follow-up with PCP, Neurology, and Ophthalmology DISCHARGE CONDITION: [Stable]. TIME SPENT ON DISCHARGE: Greater than 45 minutes. Vital Signs/I&Os Vital Signs Date Time Temp Pulse Resp B/P (MAP) Pulse Ox O2 Delivery O2 Flow Rate FiO2 07/13/19 11:47 68 168/78 07/13/19 08:00 18 97 07/13/19 07:30 97.2 07/12/19 00:34 Room Air I&O- Last 24 Hours up to 6 AM 07/13/19 05:59 Intake Total 2090 ml Output Total 2550 ml Balance -460 ml Discharge Medications Scheduled Bisoprolol/Hydrochlorothiazide (Ziac 5-6.25 mg Tablet) 1 Ea Tab, 1 TAB PO DAILY, (Reported) Clopidogrel Bisulfate (Clopidogrel) 75 Mg Tablet, 75 MG PO DAILY Cyanocobalamin (Vitamin B-12) (Vitamin B12) 5,000 Mcg Tab.rapdis, 5,000 MCG PO DAILY, (Reported) Escitalopram Oxalate (Lexapro) 10 Mg Tab, 10 MG PO DAILY, (Reported) Fexofenadine HCl (Alma Allergy) 180 Mg Tab, 180 MG PO DAILY, (Reported) Krill/Om-3/Dha/Epa/Phospho/Ast (Krill Oil 500 mg Softgel) 1 Each Capsule, 1 CAP PO DAILY, (Reported) Magnesium Oxide (Magnesium) 500 Mg Capsule, 500 MG PO BID, (Reported) Pyridoxine HCl (Vitamin B6) (Vitamin B-6) 100 Mg Tablet, 100 MG PO DAILY, (Reported) Simvastatin (Simvastatin) 40 Mg Tablet, 40 MG PO DAILY@2100 Vitamin D (Vitamin D3) 1,000 Units Tab, 1,000 UNITS PO DAILY, (Reported) Allergies Coded Allergies: No Known Allergies (Verified Allergy, Unknown, 07/11/19) atorvastatin (Verified Adverse Reaction, Unknown, MUSCLE ACHES, 07/11/19) GME ATTESTATION GME ATTESTATION My faculty preceptor for this patient encounter was physically present during the encounter and was fully available. All aspects of the patient interview, examination, medical decision making process, and medical care plan development were reviewed and approved by the faculty preceptor. The faculty preceptor is aware and concurs with the plan as stated in the body of this note and will attest to such by his/her cosignature. ATTENDING NOTE Patient was seen and examined by me this morning with the residents. Agree with the above assessment and plan PADMINI MEYERS DO Jul 13, 2019 14:18 CORKY JACKSON MD Jul 14, 2019 08:44
--- NOTE | 2019-07-13 21:13 | ECHO ---
DATE OF PROCEDURE: 07/13/2019 AGE: 69 GENDER: Female HEIGHT: 62 inches WEIGHT: 187 pounds BODY SURFACE AREA: 1.86 m2 PATIENT LOCATION: Inpatient, PCU, room 3225 REFERRING PHYSICIAN: Sarai Tapia MD INDICATION: CVA. Question cardiac source of embolic material. 2-D MEASUREMENTS: RV: 3.4 cm LV: 4.2 cm Septum: 1.1 cm Posterior wall: 1.1 cm Aortic root: 3.0 cm LA: 3.9 cm LVEF: 75% DOPPLER MEASUREMENTS: AV: 1.4 m/s LVOT: 1.1 m/s LVOT diameter: 2.0 cm MV-E: 85, A: 90, EA ratio: 0.9 Early mitral deceleration time: 183 ms E prime: 5.9, A prime: 10, E/E prime ratio: 14.4 PCWP: 18 mmHg PV: 0.95 m/s Pulmonary artery acceleration time: 116 ms RVSP: 28 mmHg IVC: 1.6 cm COMMENTS Normal sinus rhythm without intraventricular conduction disturbance. Somewhat technically challenging study with diagnostically useful information was still obtained. M-mode and two-dimensional echocardiography was performed with pulsed, continuous wave, color flow and tissue Doppler studies. Left ventricular wall thickness upper limits of normal with normal cavity size and hyperkinetic wall motion. Borderline left atrial enlargement with Doppler evidence of impairment of LV diastolic function and currently a slightly elevated mean left atrial pressure. Normal right heart chamber sizes and motion and estimated pulmonary arterial pressure. Normal IVC size and collapse against an elevated central venous pressure. Normal appearing and functioning valvular structures. Normal aortic root size. No apparent intracardiac mass or pericardial effusion. Especially in someone who is technically challenging, a transesophageal echocardiogram would be the investigation of choice if a cardiac source of embolic material was seriously suspect.
== END 2019-07-13 14:00 | disposition home or self-care (01) | DRG 66 ==
LOC: M ED 10:31 → M ED INP 17:36 → M PCU 07-12 01:19
PROVIDERS: ADMIT Internal Medicine; ATTEND Internal Medicine
DX: I63.531 Cerebral infarction due to unspecified occlusion or stenosis of right posterior cerebral artery (principal); I10 Essential (primary) hypertension; H54.62 Unqualified visual loss, left eye, normal vision right eye; G43.909 Migraine, unspecified, not intractable, without status migrainosus; Z79.899 Other long term (current) drug therapy; Z85.51 Personal history of malignant neoplasm of bladder; F41.9 Anxiety disorder, unspecified; F32.9 Major depressive disorder, single episode, unspecified; Z87.891 Personal history of nicotine dependence

== ENCOUNTER → 2019-08-18 | Outpatient (CLI) | payer MEDICARE, OTHER ==
[~2019-08-18] MED LIST changes: +CLOP75TA2 PO; +CVS5000S2 PO; +KRIL1CAP6 PO; +MAGN1CAP PO; +SIMV40TA20 PO; +VITA100T90 PO
--- NOTE | 2019-08-18 13:15 | REP ---
BILATERAL MAMMOGRAM WITH 3D TOMOSYNTHESIS, DIAGNOSTIC MAMMOGRAM RIGHT BREAST AND RIGHT BREAST ULTRASOUND: HISTORY: Asymmetric density inferolateral left breast comparison 05/25/2018. No family history of breast cancer. Tyrer-Cuzick lifetime risk of breast cancer 3.6%. MLO and CC views of both breasts are performed with 3D tomosynthesis. Parenchymal pattern is unchanged. Oval smoothly marginated nodular opacity is seen in the upper outer aspect of the right breast. This is unchanged when compared to prior studies dating back to 05/07/2015. Parenchymal pattern on the left has remained stable for 2 years and is therefore benign. No architectural distortion or other nodule is seen. There are new clustered microcalcifications in the upper inner right breast. Magnification views are performed to further evaluate which confirm their pleomorphic appearance. On the right ML view they are quite superficial, but do not lie within the skin. They are about 5 mm deep to the skin surface. Ultrasound of the lateral aspect of the right breast does not demonstrate a suspicious cystic or solid nodule. There is an axillary lymph node noted 7 mm in maximum diameter. IMPRESSION: BIRADS 4: BI-RADS/ACR category 4 mammogram. Suspicious Abnormality - biopsy should be considered. New clustered pleomorphic microcalcifications in the upper inner right breast about 5 mm deep to the skin. Recommend stereotactic biopsy. Left breast parenchymal pattern is unchanged for 2 years and is therefore benign with no evidence of suspicious mass bilaterally. Ultrasound of the lateral aspect of the right breast does not demonstrate a suspicious cystic or solid nodule. There is an axillary lymph node noted 7 mm in maximum diameter. This mammogram was interpreted with the aid of an FDA-approved computer-aided detection system. The patient states he/she had a clinical breast exam in 06/2019. The patient letter being requested is M4. Electronically Signed by Hilario Lovelace MD 08/18/2019 02:44 P
== END ==
LOC: M RAD 10:01
PROVIDERS: ATTEND Nurse Practitioner Adult Health
DX: R92.1 Mammographic calcification found on diagnostic imaging of breast (principal); Z12.31 Encounter for screening mammogram for malignant neoplasm of breast
CPT/HCPCS: 76642; 77066; G0279

== ENCOUNTER → 2019-08-29 | Outpatient (CLI) | payer MEDICARE, OTHER ==
[~2019-08-29] MED LIST changes: +LIDOCAINE 1% MDV 20ML VIAL As Ordered ONE; +SIMV40TA2 PO; -SIMV40TA20 PO
[2019-08-29 13:25] VITALS: BP 188/77
--- NOTE | 2019-08-29 13:38 | REP ---
Digital diagnostic unilateral right breast mammography with CAD: Two views. History: Marker clip placement views. The patient is status post stereotactic needle biopsy for microcalcifications right breast superior medial quadrant. Comparison mammography August 18, 2019. Findings: The marker clip is in good position. The microcalcific target has been removed. Impression: Marker clip in good position. The target microcalcifications no longer visible. Electronically Signed by Stanislaw Betancourt MD 08/29/2019 01:50 P
--- NOTE | 2019-08-29 17:06 | REP ---
Specimen radiography right breast. History: Micro calcific grouping observed on mammography August 18, 2019. The patient is status post stereotactic needle biopsy for this microcalcific target. Findings: Specimen radiography demonstrates numerous microcalcifications from the micro calcific target within the removed specimens. Impression: There are microcalcifications in the specimen. Electronically Signed by Stanislaw Betancourt MD 08/29/2019 05:14 P
--- NOTE | 2019-08-30 09:38 | REP ---
STEREOTACTIC RIGHT BREAST BIOPSY The procedure was performed under the direct supervision of Dr. Betancourt The patient has a history of clustered pleomorphic microcalcifications in the upper inner right breast seen on a previous mammogram dated 08/18/2019. The risks and benefits of the procedure were explained to the patient and informed consent was obtained. A craniocaudal approach was utilized. The calcifications were localized using stereotactic mammographic guidance. 1% Xylocaine was used as a local anesthetic. An 8 gauge, suction assisted Mammotome needle was inserted and 6 core biopsy samples were obtained. Specimen radiograph demonstrates the presence of calcifications to be within the specimen. A marker clip was placed at the biopsy site. The patient tolerated the procedure well and there were no immediate complications. After the appropriate amount of monitored convalescence, the patient was discharged from the department. Electronically Signed by DAVID Woodall 08/29/2019 05:56 P Electronically Signed by Stanislaw Betancourt MD 08/30/2019 09:29 A
== END ==
LOC: M IRPRO 11:46
PROVIDERS: ATTEND Nurse Practitioner Adult Health
DX: R92.0 Mammographic microcalcification found on diagnostic imaging of breast (principal)

== ENCOUNTER → 2019-09-13 | Outpatient (CLI) | payer MEDICARE, OTHER ==
[~2019-09-13] MED LIST changes: -LIDOCAINE 1% MDV 20ML VIAL As Ordered ONE
[2019-09-13 17:22] LABS: HEMOGLOBIN A1c 6.2 %
[2019-09-13 17:39] LABS: FREE T4 0.94 NG/DL (0.76-1.46); RHEUMATOID FACTOR QUANT < 10.0 IU/ML (<15.0); TOTAL PROTEIN 7.3 GM/DL (6.4-8.2)
[2019-09-13 17:40] LABS: FOLATE 7.4 NG/ML (>5.4); VITAMIN B12 LEVEL > 2000 PG/ML (247-911)
[2019-09-14 12:38] LABS: ALBUMIN % 55.4 % (55.8-66.1)
[2019-09-14 12:39] LABS: ALBUMIN 4.04 GM/DL (3.29-5.55); ALPHA-1-GLOBULINS 0.37 GM/DL (0.17-0.41); ALPHA-2-GLOBULINS 0.89 GM/DL (0.42-0.99); ALPHA-2-GLOBULINS % 12.2 % (7.1-11.8); BETA-1-GLOBULINS 0.48 GM/DL (0.28-0.60); BETA-1-GLOBULINS % 6.6 % (4.7-7.2); BETA-2-GLOBULINS 0.37 GM/DL (0.19-0.55); BETA-2-GLOBULINS % 5.1 % (3.2-6.5); GAMMA GLOBULIN % 15.7 % (11.1-18.8); GAMMA GLOBULINS 1.15 GM/DL (0.65-1.58)
[2019-09-20 00:07] LABS: ANTINUCLEAR ANTIBODIES DIRECT Negative (Negative); VITAMIN B6,PYRIDOXAL PHOSPHATE 93.9 ug/L (2.0-32.8); VITAMIN E(ALPHA TOCOPHEROL) 9.5 mg/L (9.0-29.0); VITAMIN E(GAMMA TOCOPHEROL) 1.4 mg/L (0.5-4.9)
== END ==
LOC: M WUC 14:43
PROVIDERS: ATTEND Psychiatry & Neurology Neurology
DX: E11.9 Type 2 diabetes mellitus without complications (principal); E07.9 Disorder of thyroid, unspecified; G90.09 Other idiopathic peripheral autonomic neuropathy

== ENCOUNTER → 2020-10-03 | Outpatient (CLI) | payer MEDICARE, OTHER ==
[~2020-10-03] MED LIST changes: -ASPI81TA85 PO; +ASPI81TA86 PO; -SIMV40TA2 PO; +SIMV40TA20 PO
--- NOTE | 2020-10-03 11:45 | REPMRS ---
Patient History The patient states she had a clinical breast exam in July 2020. Patient is postmenopausal and has history of other cancer at age 70 bladder cancer for the second time. No known family history of cancer. Benign radio exam breast specimen of the right breast, August 29, 2019. Benign stereotatic loc for ea lesion of the right breast, August 29, 2019. Took hormonal contraceptives for 6 years. Took estrogen for 24 years. PT stated that her clip she had placed during her right breast stereotactic biopsy on August 29, 2019 was rejected by her body and made its way out of her breast tissue in October 2019 and is no longer there. Digital Woman Screen Mammo: October 03, 2020 - Exam #: [id number] Bilateral CC and MLO view(s) were taken. Technologist: RT Loren Prior study comparison: August 18, 2019, digital mammo diagnostic bilateral, performed at [facility]. January 05, 2019, left breast digital mammo diagnostic unilateral, performed at [facility]. May 25, 2018, digital mammo diagnostic bilateral, performed at [facility]. FINDINGS: There are scattered fibroglandular densities. The Volpara volumetric breast density category is:B. The needle biopsy marker clip noted in the right breast medially after stereotactic biopsy on August 29, 2019 is no longer apparent. According to the patient, this was "rejected" and spontaneously expressed from the skin of the right breast in the interval since that prior study. There has been no change in the appearance of the mammogram from the prior studies. There is a mild amount of scattered fibroglandular density which is fairly symmetric. There is no interval development of dominant mass, architectural distortion, or grouped microcalcification suggestive of malignancy. 3-D tomosynthesis shows no additional findings. Assessment: BI-RADS/ACR category 1 mammogram. Negative Mammogram. Recommendation Routine screening mammogram of both breasts in 1 year (for women over age 40). This patient's [facility] Lifetime Breast Cancer Risk is estimated at 3.3 %. This mammogram was interpreted with the aid of an FDA-approved computer-aided dectection system. Electronically Signed By: Damir Betancourt MD 10/03/20 [id number]
== END ==
LOC: M WHC 10:26
PROVIDERS: ATTEND Nurse Practitioner Adult Health
DX: Z12.31 Encounter for screening mammogram for malignant neoplasm of breast (principal); Z85.51 Personal history of malignant neoplasm of bladder; Z92.0 Personal history of contraception; Z97.8 Presence of other specified devices

== ENCOUNTER 2020-11-06 12:28 | Emergency (ER) | payer MEDICARE, OTHER ==
[~2020-11-06] VITALS: Ht 157.5 cm; Wt 84.6 kg
--- OUTSIDE RECORDS SUMMARY | 2020-11-06 12:37 | CCD | Continuity of Care Document ---
Author Author Lab Schedule, Valerie Ellis Organization Unknown Address [address] [place] [id number] Phone Unavailable Care Team Providers Care Reexaminer Name Role Phone Marcelino Dejesus JR, MD AUTM Unavailable Koki Gillette ANP AUTM [phone] Edgard Hall DO AUTM [phone] Reinier Asencio MD AUTM [phone] Problems Active Problems Provider Date Pure hypercholesterolemia Marcelino Dejesus MD Onset: 05/28 Morbid obesity Marcelino Dejesus MD Onset: 05/28/2012 Body Mass Index 32.0-32.9 Adult Marcelino Dejesus MD Onset: 05/28/2012 Essential hypertension Marcelino Dejesus MD Onset: 05/28/20 12 Social History Type Date Description Comments Sex Unknown ETOH Use Rarely consumes liquor Tobacco Use Start: Unknown End: Unknown Patient is a former smoker SMOKED FOR 20YRS 1 MIREYA A DAY Allergies, Adverse Reactions, Alerts Active Allergies Reaction Severity Comments Date Lipitor MUSCLE PAIN 04/30/2010 PPD Pt had BCG for bladder cancer 01/22/2017 Medications Active Medications SIG Qnty Indications Ordering Provide r Date Lunesta 2mg Tablets 1 by mouth at bedtime as needed insomnia 30tabs ANDREW Sewell 08/06/20 20 Pepcid 20mg Tablets 1 by mouth twice a day 180tabs Marcelino Dejesus MD 04/24/2020 Probiotic Acidophilus Capsules daily ANDREW Sewell 06/30/2019 Shingrix 50mcg Suspension Rec administer 0.5 milliliters intramuscular, repeat in 2 to 6 months 2units Marcelino Dejesus MD 07/20/2018 Krill Oil 1000mg Capsules 1 q d Koki J. Leta, ANP 01/22/2017 Vitamin B-12 Natural 500mcg Tablets 2 by mouth every day ANDREW Sewell 01/22/2017 Bisoprolol Fumarate/Hydrochlorothiazide 5-6.25mg Tablets 1 by mouth every day 90tabs Marcelino Dejesus MD 05/28/2012 Escitalopram Oxalate 10mg Tablets Take 1 Tablet Daily 90tabs Marcelino Dejesus MD 05/28/2012 Clobetasol Propionate 0.05% Cream apply to affected areas twice a day and as needed itching 30Grams ANDREW Sewell 12/08/2011 Vitamin D-3 1000Unit Tablets 1 po qd Marcelino Dejesus MD 05/02/2011 [address]ir-[address] 1 po qd 100tabs Marcelino Dejesus MD 04/30/2010 Alma 180mg 1 po qd prn 9 0units Marcelino Dejesus MD 08/30/2004 Clopidogrel Bisulfate 75mg Tablets Take 1 Tablet Daily 90tabs Marcelino Dejesus MD Magnesium Oxide (Antacid) 500mg Ca psules 1 by mouth twice a day Unknown Simvastatin 40mg Tablets Take 1 Tablet AT Bedtime 90tabs Marcelino Dejesus MD Vitamin B6 50mg Tablets 2 by mouth every day Unknown Zinc Chelated 50mg Tablets 1 by mouth every day Unknown Immunizations CPT Code Status Date Vaccine Lot # U-Flu Given 06/28/2020 Influenza,Unspecified [id number] Given 09/01/2019 Shingrix Zoster Vaccine (HZV), Recombinant, Subunit, Adjuvanted U-Flu Given 06/27/2019 Influenza,Unspecified 87437 Given 06/03/2019 Shingrix Zoster Vaccine (HZV), Recombinant, Subunit, Adjuvanted U-Flu Given 07/02/2018 Influenza,Unspecified 75311 Given 08/05/2016 Pneumovax 23 [id number] Given 07/20/2013 Fluvirin Virus Vaccine 15348 Given 04/30/2010 Zoster Vaccine 96444 Given 09/25/2000 Influenza Virus Vaccine 95827 Refused 07/19/2019 Tetanus/Diptheria(Td)Toxoids Preservative Free Vital Signs Date Vital Result Comment 10/26/2020 10:53am BP Systolic 122 mmHg BP Diastolic 66 mmHg Height 62 inches 5'2" Weight 183.50 lb BMI (Body Mass Index) 33.6 kg/m2 08/06/2020 11:05am BP Systolic 134 mmHg BP Diastolic 56 mmHg Heart Rate 63 /min Height 62 inches 5'2" Weight 180.00 lb O2 % BldC Oximetry 96 % BMI (Body Mass Index) 32.9 kg/m2 Results Test Acquired Date Facility Test Result H/L Range Note Complete Blood Count 10/25/2020 [facility] Flight Operations Specialist: [place] [address] [phone] WBC 9.1 x10*3/UL 4.1 - 10.9 RBC 4.36 x10*6/UL 4.20 - 6.30 Hemoglobin 13.1 g/dL 12.0 - 18.0 Hematocrit 37.3 % 37.0 - 51.0 MCV 85.5 fL 80.0 - 97.0 MCH 30.1 pg 26.0 - 32.0 MCHC 35.2 g/dL 31.0 - 38.0 RDW 12.3 % 11.6 - 13.7 PLT 216 x10*3/UL 140 - 440 MPV 8.7 FL 7.8 - 11.0 Lymph % 28.6 % 10.0 - 58.5 Mid % 6.9 % 1.7 - 9.3 Neut % 64.5 % 37.0 - 92.0 Lymph # 2.6 x10*3/UL 0.6 - 4.1 Mid # 0.7 x10*3/UL High 0.1 - 0.6 Neut # 5.8 x10*3/UL 2.0 - 7.8 A1c 10/25/2020 [facility] Flight Operations Specialist: [place] Marcel[place] [address] [phone] Hba1c 6.1 % High <5.7 1 Est Avg Glucose 128 mg/dL High 60 - 110 Comprehensive Chem Profile 10/25/2020 [facility] Flight Operations Specialist: [place] Marcel[place] [address] [phone] Glucose 117 mg/dL High 74 - 99 2 BUN 19 mg/dL High 7 - 18 Creatinine 0.8 mg/dL 0.6 - 1.3 Sodium 139 mEq/L 136 - 145 Potassium 3.9 mEq/L 3.5 - 5.1 Chloride 101 mEq/L 98 - 107 Carbon Dioxide 31 mEq/L 21 - 32 Calcium 9.0 mg/dL 8.5 - 10.1 Alk. Phosphatase 80 mg/dL 46 - 116 Total Bilirubin 0.4 mg/dL 0.2 - 1.0 Ast (Sgot) 24 U/L 15 - 37 Alt (SGPT) 36 U/L 12 - 78 Albumin 3.7 g/dL 3.4 - 5.0 Total Protein 7.1 g/dL 6.4 - 8.2 A/G Ratio 1.09 CALC 1.00 - 1.90 GFR >= 60 mL/min >60 GFR >= 60 mL/min >60 3 Laboratory test finding 10/25/2020 [facility] Flight Operations Specialist: Dr Marcelino [place] [id number] [phone] Thyroid Stimulating Hormone 7.87 uIU/mL High 0.3 6 - 3.74 Laboratory test finding 10/25/2020 [facility] Flight Operations Specialist: Dr Marcelino [place] [id number] [phone] T4 Free 0.89 ng/dL 0.76 - 1.46 1 Lab Result Notes: Pre-Diabetes 5.7 - 6.4 % Diabetes = or > 6.5% 2 100-125 mg/dL PRE-DIABET ES/FASTING >126 mg/dL DIABETES/FASTING 3 CHRONIC KIDNEY DISEASE STAGI NG PER NKF STAGE I & II GFR >= 60 NORMAL TO MILDLY DECREASED STAGE III GFR 30-59 MODERATELY DECREASED STAGE IV GFR 15-29 SEVERELY DECREASED STAGE V GFR <15 VERY LITTLE GFR LEFT ESRD GFR <15 ON ELECTRICAL ENGINEERING PROFESSOR Procedures Date Code Description Status 10/03/2020 [id number] Mammogram Completed 08/29/2019 [id number] Mammogram Completed 08/18/2019 [id number] Mammogram Completed 01/05/2019 [id number] Mammogram Completed 05/25/2018 [id number] Mammogram Completed 01/20/2018 [id number] Mammogram Completed 05/27/2017 [id number] Mammogram Completed 05/22/2017 [id number] Mammogram Completed 08/21/2016 [id number] Bone Mineral Density Test Comple trang 05/20/2016 [id number] Mammogram Completed 08/27/2015 [id number] Colonoscopy Completed 05/07/2015 [id number] Mammogram Completed 02/09/2014 [id number] Mammogram Completed 02/07/2013 [id number] Mammogram Completed 08/26/2011 [id number] Mammogram Completed 12/04/2009 [id number] Mammogram Completed 06/02/2008 [id number] Bone Mineral Density Test Comple trang 11/18/2004 [id number] Colonoscopy Completed Medical Devices Description No Information Available Encounters Description No Information Available Assessments Date Code Description Provider 10/26/2020 I10 Essential (primary) hypertension Marcelino Dejesus MD 10/26/2020 R73.09 Other abnormal glucose Marcelino Dejesus MD 10/26/2020 E07.9 Disorder of thyroid, unspecified Marcelino Dejesus MD 10/26/2020 E78.00 Pure hypercholesterolemia, unspe cified Marcelino Dejesus MD 10/26/2020 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 Marcelino Dejesus MD 10/26/2020 C67.9 Malignant neoplasm of bladder, u nspecified Marcelino Dejesus MD 10/26/2020 E66.09 Other obesity due to excess meron jim Marcelino Dejesus MD 10/26/2020 Z68.33 Body mass index [BMI] 33.0-33.9, adult Marcelino Dejesus MD 10/25/2020 E78.00 Pure hypercholesterolemia, unspe cified Marcelino Dejesus MD 10/25/2020 E78.00 Pure hypercholesterolemia, unspe cified Lab Schedule 10/25/2020 I10 Essential (primary) hypertension Marcelino Dejesus MD 10/25/2020 I10 Essential (primary) hypertension Lab Schedule 10/25/2020 R73.09 Other abnormal glucose Marcelino Dejesus MD 10/25/2020 R73.09 Other abnormal glucose Lab Sched ule Plan of Treatment Future Appointment(s):* 01/22/2021 11:00 am - Lab Schedule at [facility] * 04/30/2021 8:20 am - Lab Schedule at [facility] * 05/01/2021 10:40 am - Marcelino Dejesus MD at [facility] 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
--- OUTSIDE RECORDS SUMMARY | 2020-11-06 12:37 | CCD | Continuity of Care Document ---
Author Author Valerie Dejesus MD Organization Unknown Address [address] [facility] [address] [place] [address] Phone [phone] Care Team Providers Care Baffle Mounter Name Role Phone Marcelino Dejesus JR, MD AUTM Unavailable Koki Gillette ANP AUTM [phone] IsabelJosephnahomi MACHADO AUTM [phone] Reinier Asencio MD AUTM [phone] Problems Active Problems Provider Date Pure hypercholesterolemia [...] Krill Oil 1000mg Capsules 1 q d ANDREW Sewell 01/22/2017 Vitamin B-12 Natural 500mcg Tablets 2 by mouth every day ANDREW Sewell 01/22/2017 Bisoprolol Fumarate/Hydrochlorothiazide 5-6.25mg Tablets 1 by mouth every day 90tabs Marcelino Dejesus MD 05/28/2012 Escitalopram Oxalate 10mg Tablets take 1 tablet daily 90tabs Marcelino Dejesus MD 05/28/2012 Clobetasol Propionate [...] Vaccine Lot # U-Flu Given 06/28/2020 Influenza,Unspecified 76835 Given 09/01/2019 Shingrix Zoster Vaccine (HZV), Recombinant, Subunit, Adjuvanted U-Flu Given 06/27/2019 Influenza,Unspecified 86177 Given 06/03/2019 Shingrix Zoster Vaccine (HZV), Recombinant, Subunit, Adjuvanted U-Flu Given 07/02/2018 Influenza,Unspecified 23631 Given 08/05/2016 Pneumovax 23 [id number] Given 07/20/2013 Fluvirin Virus Vaccine 82537 Given 04/30/2010 Zoster Vaccine 16147 Given 09/25/2000 Influenza Virus Vaccine [id number] Refused 07/19/2019 Tetanus/Diptheria(Td)Toxoids Preservative Free Vital Signs [...] H/L Range Note Complete Blood Count 10/25/2020 [facility] Eyeglass Frames Polisher: [place] [address] [phone] WBC 9.1 x10*3/UL 4.1 - 10.9 RBC [...] 5.8 x10*3/UL 2.0 - 7.8 A1c 10/25/2020 [facility] Eyeglass Frames Polisher: [place] [address] [phone] Hba1c 6.1 % High <5.7 1 Est Avg Glucose 128 mg/dL High 60 - 110 Comprehensive Chem Profile 10/25/2020 [facility] Eyeglass Frames Polisher: Dr Marcelino [place] [id number] [phone] Glucose 117 mg/dL High 74 - 99 [...] mL/min >60 3 Laboratory test finding 10/25/2020 [facility] Eyeglass Frames Polisher: [place] [address] [phone] Thyroid Stimulating Hormone 7.87 uIU/mL High 0.3 6 - 3.74 Laboratory test finding 10/25/2020 [facility] Eyeglass Frames Polisher: [place] Marcel[place] [address] [phone] T4 Free 0.89 ng/dL 0.76 - 1.46 [...] LITTLE GFR LEFT ESRD GFR <15 ON LAP MACHINE TENDER Procedures Date Code Description Status 10/03/2020 [id number] Mammogram Completed 08/29/2019 [id number] Mammogram Completed 08/18/2019 [id number] Mammogram Completed 01/05/2019 [id number] Mammogram Completed 05/25/2018 [id number] Mammogram Completed 01/20/2018 [id number] Mammogram Completed 05/27/2017 [id number] Mammogram Completed 05/22/2017 [id number] Mammogram Completed 08/21/2016 [id number] Bone Mineral Density Test Comple trang 05/20/2016 [id number] Mammogram Completed 08/27/2015 [id number] Colonoscopy Completed 05/07/2015 [id number] Mammogram Completed 02/09/2014 [id number] Mammogram Completed 02/07/2013 [id number] Mammogram Completed 08/26/2011 [id number] Mammogram Completed 12/04/2009 [id number] Mammogram Completed 06/02/2008 [id number] Bone Mineral Density Test Comple trang 11/18/2004 [id number] Colonoscopy Completed Medical Devices Description No Information Available Encounters Type Date Location Provider Dx Diagnosis Office Visit 10/26/2020 11:00a [facility] Marcelino Dejesus MD I10 Essential (primary) hypertension R73.09 Other abnormal glucose E07.9 Disorder of thyroid, unspeci fied E78.00 Pure hypercholesterolemia, u nspecified I63.331 Cerebral infrc due to thombo s of right post cerebral artery C67.9 Malignant neoplasm of bladde r, unspecified E66.09 Other obesity due to excess calories Z68.33 Body mass index [BMI] 33.0-3 3.9, adult Z13.89 Encounter for screening for other disorder Assessments Date Code Description Provider 10/26/2020 I10 [...] index [BMI] 33.0-33.9, adult Marcelino Dejesus MD 10/26/2020 Z13.89 Encounter for screening for othe r disorder Marcelino Dejesus MD 10/25/2020 E78.00 Pure hypercholesterolemia, unspe cified Marcelino Dejesus MD 10/25/2020 E78.00 Pure hypercholesterolemia, unspe cified Lab Schedule 10/25/2020 I10 Essential (primary) hypertension Marcelino Dejesus MD 10/25/2020 I10 Essential (primary) hypertension Lab Schedule 10/25/2020 R73.09 Other abnormal glucose Marcelino Dejesus MD 10/25/2020 R73.09 Other abnormal glucose Lab Sched ule Plan of Treatment Future Appointment(s):* 01/22/2021 11:00 am - Lab Schedule at [facility] * 04/30/2021 8:20 am - Lab Schedule at [facility] * 05/01/2021 10:40 am - Marcelino Dejesus MD at [facility] 10/24/2019 - Marcelino Dejesus MD* [...]
--- OUTSIDE RECORDS SUMMARY | 2020-11-06 12:37 | CCD | Continuity of Care Document ---
Author Author Valerie HENRY MD Organization Unknown Address [address] [place] [address] Phone [phone] Care Team Providers Care Distribution Associate Name Role Phone Koki Gillette AUTM [phone] Marcelino Dejesus M.D. AUTM [phone] Problems Active Problems Provider Date Malignant tumor of urinary bladder Franklin Henry MD Onset: 11/16/2013 Urinary bladder stone Franklin Henry MD Onset: Malignant tumor of urinary bladder Franklin Henry MD Onset: 07/04/2014 History of malignant neoplasm of bladder Franklin elizondo MD Onset: 07/23/2015 Grupo hematuria Franklin Henry MD Onset: 02/2015 Malignant neoplasm, overlapping lesion of bladder Sam Henry MD Onset: 09/16/2017 Dysuria Franklin Henry MD Onset: 10/19 Social History Type Date Description Comments Sex Unknown Tobacco Use Start: Unknown End: Unknown Former Cigarette Smo ker 1 Pack Daily smoked ages [age] Smoking Status Reviewed: 10/30/20 Former Cigarette Smoker 1 Pac k Daily smoked ages [age] ETOH Use Rare Alcohol Use Allergies, Adverse Reactions, Alerts Active Allergies Reaction Severity Comments Date No Known Drug Allergy 2012 Medications Active Medications SIG Qnty Indications Ordering Provide r Date Vitamin B12 5000mcg Tablets 1 by mouth every day Franklin Henry MD 06/2018 Lexapro 10mg Tablets Unknown Ziac 5-6.25mg Tablets Unknown Fexofenadine HCL 180mg Tablets Unknown Vitamin D3 25mcg Tablets Unknown Aspirin 81mg Tablets daily Unknown Krill Oil [place]lman-3 500mg Capsules qd Unknown Vitamin B 6 50mg Tablets 2 by mouth every day Unknown Clopidogrel Bisulfate 75mg Tablets Marcelino Dejesus JR, M.D. Simvastatin 40mg Tablets Marcelino Dejesus JR, M.D. Pepcid Unknown Zinc Unknown History Medications Cephalexin 500mg Tablets 1 tab by mouth following office procedure 1tabs Franklin franks MD 10/23/2020 - 10/24/2020 Keflex 500mg Capsules 1 by mouth twice a day 14caps Franklin Henry MD 11/2019 - 10/22/2020 Cephalexin 500mg Capsules 1 by mouth following office procedure Franklin franks MD 08/30/2020 - 08/31/2020 Medications Administered in Office Medication SIG Qnty Indications Ordering Provider Date BCG, [place] Strain - new code eff. 04/18/19 50MG Injection WSC2,Nursing Schedule/Proced ure Room 08/16/2019 BCG, [place] Strain JW For Waste Inj ection WSC2,Nursing Schedule/Procedure Room 08/09/2019 BCG, [place] Strain - new code eff. 04/18/19 50MG Injection WSC2,Nursing Schedule/Proced ure Room 08/09/2019 BCG, [place] Strain JW For Waste Inj ection WSC2,Nursing Schedule/Procedure Room 08/02/2019 BCG, [place] Strain - new code eff. 04/18/19 50MG Injection WSC2,Nursing Schedule/Proced ure Room 08/02/2019 BCG, [place] Strain DO Not Use After 9 Dos Injection WSC2,Nursing Schedule/Proce dure Room 01/17/2019 BCG, [place] Strain DO Not Use After 9 Dos Injection WSC2,Nursing Schedule/Proce dure Room 01/10/2019 BCG, [place] Strain DO Not Use After 9 Dos Injection WSC2,Nursing Schedule/Proce dure Room 01/03/2019 BCG, [place] Strain DO Not Use After 9 Dos Injection WSC2,Nursing Schedule/Proce dure Room 07/06/2018 BCG, [place] Strain DO Not Use After 9 Dos Injection WSC2,Nursing Schedule/Proce dure Room 06/29/2018 BCG, [place] Strain DO Not Use After 9 Dos Injection WSC2,Nursing Schedule/Proce dure Room 06/22/2018 BCG, [place] Strain DO Not Use After 9 Dos Injection WSC2,Nursing Schedule/Proce dure Room 03/01/2018 BCG, [place] Strain DO Not Use After 9 Dos Injection WSC2,Nursing Schedule/Proce dure Room 02/22/2018 BCG, [place] Strain DO Not Use After 9 Dos Injection WSC2,Nursing Schedule/Proce dure Room 02/15/2018 BCG, [place] Strain DO Not Use After 9 Dos Injection WSC2,Nursing Schedule/Proce dure Room 02/08/2018 BCG, [place] Strain DO Not Use After 9 Dos Injection Minnie Calderon MD BCG, [place] Strain DO Not Use After 9 Dos Injection WSC2,Nursing Schedule/Proce dure Room 01/25/2018 BCG, [place] Strain DO Not Use After 9 Dos Injection WSC2,Nursing Schedule/Proce dure Room 01/18/2018 Chemoclave Kit Injection WSC2,Nursing Schedule/Procedure Room 01/18/2018 BCG, [place] Strain DO Not Use After 9 Dos Injection Lucas Deleon MD 09/11 BCG, [place] Strain DO Not Use After 9 Dos Injection WSC2,Nursing Schedule/Proce dure Room 09/11/2014 BCG, [place] Strain DO Not Use After 9 Dos Injection Jose Pichardo MD 08/19 BCG, [place] Strain DO Not Use After 9 Dos Injection WSC2,Nursing Schedule/Proce dure Room 09/04/2014 BCG, [place] Strain DO Not Use After 9 Dos Injection Arnulfo Larios M.D. 08/28/20 14 BCG, [place] Strain DO Not Use After 9 Dos Injection WSC2,Nursing Schedule/Proce dure Room 08/28/2014 BCG, [place] Strain DO Not Use After 9 Dos Injection Ash Lawrence MD 014 BCG, [place] Strain DO Not Use After 9 Dos Injection WSC2,Nursing Schedule/Proce dure Room 06/05/2014 BCG, [place] Strain DO Not Use After 9 Dos Injection Rodney Sanchez MD 05/19 BCG, [place] Strain DO Not Use After 9 Dos Injection WSC2,Nursing Schedule/Proce dure Room 05/29/2014 BCG, [place] Strain DO Not Use After 9 Dos Injection Jose Pichardo MD 01/2014 BCG, [place] Strain DO Not Use After 9 Dos Injection WSC2,Nursing Schedule/Proce dure Room 05/22/2014 BCG, [place] Strain DO Not Use After 9 Dos Injection Kerry Mcclure 05/15/2014 BCG, [place] Strain DO Not Use After 9 Dos Injection Kerry Mcclure 05/08/2014 BCG, [place] Strain DO Not Use After 9 Dos Injection Kerry Mcclure 05/01/2014 Mitomycin,5MG Antica Agent Injection Franklin Henry MD 03/23/2014 Immunizations Description No Information Available Vital Signs Date Vital Result Comment 10/30/2020 10:02am Height 62 inches 5'2" Weight 180.00 lb Weight 81.648 kg BMI (Body Mass Index) 32.9 kg/m2 10/23/2020 12:21pm Height 62 inches 5'2" Weight 175.00 lb Weight 79.380 kg BMI (Body Mass Index) 32.0 kg/m2 BP Systolic 167 mmHg BP Diastolic 66 mmHg Heart Rate 59 /min Results Test Acquired Date Facility Test Result H/L Range Note Pathology/Surgical Tissue 10/23/2020 [facility] [address] [place] [address] [phone] Clinical History D09.0 Normal BodySite BLADDER SpecialProcedure BIOPSY Gross Description The specimen is <SEE NOTE> 1 Final Diagnosis LOW-GRADE PAPILL <SEE NOTE> 2 CPTCode 72501 [id number] D09.0 PDF Report SEE IMAGE 230 Ua Routine 10/23/2020 [facility] Inhouse Lab REF TO DR ADDRESS ON ORDER FOR (315)- - Ua Glucose Negative Ua Protein Negative Ua Nitrite Negative Ua Leuko Trace Ua Blood Negative Ua Color Not Entered Ua Ketones Negative Ua Clarity Not Entered Ua Specific [place] 1.025 1.003-1.030 Ua PH 5.5 5.0-7.5 Ua Bilirubin Negative Ua Urobilinogen 0.2 E.U./dL 0.0-1.0 Laboratory test finding 09/28/2020 [facility] [address] [phone] Urine Culture SPECIMEN DESCRIP <SEE NOTE> 3 230 Ua Routine 09/28/2020 [facility] Inhouse Lab REF TO DR ADDRESS ON ORDER FOR (315)- - Ua Glucose Negative Ua Protein Negative Ua Nitrite Negative Ua Leuko Small Ua Blood Negative Ua Color Not Entered Ua Ketones Trace Ua Clarity Not Entered Ua Specific [place] 1.025 1.003-1.030 Ua PH 5.5 5.0-7.5 Ua Bilirubin Negative Ua Urobilinogen 0.2 E.U./dL 0.0-1.0 Urine Cytology 08/30/2020 [facility] [address] [place] [address] [phone] Clinical History Z85.51 Normal Specimen Adequacy Satisfactory for <SEE NOTE> Normal 4 BodySite Voided - Clean C <SEE NOTE> Normal 5 Gross Description Received in a sp <SEE NOTE> Normal 6 Microscopic Description None. Normal Final Diagnosis NEGATIVE FOR HIG <SEE NOTE> Normal 7 CPTCode 53575 Normal [id number] Z85.51 Normal PDF Report SEE IMAGE 230 Ua Routine 08/30/2020 [facility] Inhouse Lab REF TO DR ADDRESS ON ORDER FOR (315)- - Ua Glucose Negative Ua Protein Negative Ua Nitrite Negative Ua Leuko Negative Ua Blood Negative Ua Color Not Entered Ua Ketones Negative Ua Clarity Not Entered Ua Specific [place] >=1.030 1.003-1.030 Ua PH 5.5 5.0-7.5 Ua Bilirubin Negative Ua Urobilinogen 0.2 E.U./dL 0.0-1.0 1 The specimen is received in formalin fixative and labeled with patients name and . The site is not indicated on label. On requisition, it is indicated as bladder. It is 2 jones mucosal fragments measuring 0.6 cm in aggregate/greatest dimension. Totally submitted in one cassette. 2 LOW-GRADE PAPILLARY UROTHELI AL CARCINOMA, NON-INVASIVE. 3 SPECIMEN DESCRIPTION URINE, COLLECTION METHOD NOT SPECIFIED CULTURE RESULTS NO GROWTH REPORT STATUS FINAL 09/29/2020 4 Satisfactory for evaluation. 5 Voided - Clean Catch 6 Received in a specimen conta iner, labeled with the patients name and , is Cloudy Yellow fluid consistent with urine, measuring approximately 30 ml. 7 NEGATIVE FOR HIGH-GRADE UROT HELIAL CARCINOMA. Procedures Date Code Description Status 10/23/2020 60702 Cystourethroscopy, W ith Fulguration Including Cryosurgery Or Las Completed 08/30/2020 33912 Cystourethroscopy, Separate Proc edure Completed 08/01/2016 [id number] Colonoscopy Completed Medical Devices Description No Information Available Encounters Type Date Location Provider Dx Diagnosis Office Visit 10/31/2020 11:00a [facility] Franklin Henry MD Z85.51 Personal history of malignan t neoplasm of bladder R30.0 Dysuria R31.0 Gross hematuria Office Visit 08/30/2020 10:45a [facility] 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 10/31/2020 - Franklin Henry MD* Z85.51 Personal history of malignant neoplasm of bladder* Comments:* We talked about the possibility of reinitiating treatment with BCG, she potentially would be eligible for clinical protocol. She is not really anxious in moving forward with BCG again particular because of the epidemic and because of the travel weather issues. She is agreeable to repeat interval cystoscopy in 3 months time. * R30.0 Dysuria* Comments:* In the event that we put her back on BCG we could potentially premedicate her with anticholinergic or Myrbetriq at a time to see if we could alleviate some of the symptoms. She was not able to tolerate full dose before * R31.0 Gross hematuria* Comments:* The hematuria is resolving after the procedure Functional Status Description No Information Available Mental Status Description No Information Available Referrals Description No Information Available
--- OUTSIDE RECORDS SUMMARY | 2020-11-06 12:38 | CCD | Continuity of Care Document ---
Author Author Valerie MEDRANO MD Organization Unknown Address [address] [place] [address] Phone [phone] Care Team Providers Care Operations Research Manager Name Role Phone Koki Gillette AUTM [phone] Marcelino Dejesus M.D. AUTM [phone] Problems Active Problems Provider Date Malignant tumor of urinary bladder Franklin Henry MD Onset: 11/16/2013 Urinary bladder stone Franklin Henry MD Onset: Malignant tumor of urinary bladder Franklin Henry MD Onset: 07/04/2014 History of malignant neoplasm of bladder Franklin elizondo MD Onset: 07/23/2015 Grupo hematuria Franklin Henry MD Onset: 02/2015 Malignant neoplasm, overlapping lesion of bladder Sam Henry MD Onset: 09/16/2017 Social History Type Date Description Comments Sex Unknown Tobacco Use Start: Unknown End: Unknown Former Cigarette Smo ker 1 Pack Daily smoked ages [age] Smoking Status Reviewed: 09/28/20 Former Cigarette Smoker 1 Pac k Daily [...] Aspirin 81mg Tablets daily Unknown Krill Oil [place]-3 500mg Capsules qd Unknown Vitamin B 6 [...] SIG Qnty Indications Ordering Provider Date BCG, [place] Strain - new code eff. 04/18/19 50MG Injection WSC2,Nursing Schedule/Proced ure Room 08/16/2019 BCG, [place] Strain JW For Waste Inj ection WSC2,Nursing Schedule/Procedure Room 08/09/2019 BCG, Shannan Strain - new code eff. 04/18/19 50MG Injection WSC2,Nursing Schedule/Proced ure Room 08/09/2019 BCG, [place] Strain JW For Waste Inj ection WSC2,Nursing Schedule/Procedure Room 08/02/2019 BCG, Shannan Strain - new code eff. 04/18/19 50MG Injection WSC2,Nursing Schedule/Proced ure Room 08/02/2019 BCG, [place] Strain DO Not Use After 9 Dos Injection WSC2,Nursing Schedule/Proce dure Room 01/17/2019 BCG, Shannan Strain DO Not Use After 9 Dos Injection WSC2,Nursing Schedule/Proce dure Room 01/10/2019 BCG, [place] Strain DO Not Use After 9 Dos Injection WSC2,Nursing Schedule/Proce dure Room 01/03/2019 BCG, [place] Strain DO Not Use After 9 Dos Injection WSC2,Nursing Schedule/Proce dure Room 07/06/2018 BCG, Shannan Strain DO Not Use After 9 Dos Injection WSC2,Nursing Schedule/Proce dure Room 06/29/2018 BCG, Shannan Strain DO Not Use After 9 Dos Injection WSC2,Nursing Schedule/Proce dure Room 06/22/2018 BCG, [place] Strain DO Not Use After 9 Dos Injection WSC2,Nursing Schedule/Proce dure Room 03/01/2018 BCG, Shannan Strain DO Not Use After 9 Dos Injection WSC2,Nursing Schedule/Proce dure Room 02/22/2018 BCG, Shannan Strain DO Not Use After 9 Dos Injection WSC2,Nursing Schedule/Proce dure Room 02/15/2018 BCG, [place] Strain DO Not Use After 9 Dos Injection WSC2,Nursing Schedule/Proce dure Room 02/08/2018 BCG, Shannan Strain DO Not Use After 9 Dos Injection Minnie Calderon MD BCG, [place] Strain DO Not Use After 9 Dos Injection WSC2,Nursing Schedule/Proce dure Room 01/25/2018 BCG, [place] Strain DO Not Use After 9 Dos Injection WSC2,Nursing Schedule/Proce dure Room 01/18/2018 Chemoclave Kit Injection WSC2,Nursing Schedule/Procedure Room 01/18/2018 BCG, [place] Strain DO Not Use After 9 Dos Injection Lucas Deleon MD 09/11 BCG, [place] Strain DO Not Use After 9 Dos Injection WSC2,Nursing Schedule/Proce dure Room 09/11/2014 BCG, [place] Strain DO Not Use After 9 Dos Injection Jose Pichardo MD 08/19 BCG, [place] Strain DO Not Use After 9 Dos Injection WSC2,Nursing Schedule/Proce dure Room 09/04/2014 BCG, [place] Strain DO Not Use After 9 Dos Injection Arnulfo Larios M.D. 08/28/20 BCG, [place] Strain DO Not Use After 9 Dos Injection WSC2,Nursing Schedule/Proce dure Room 08/28/2014 BCG, [place] Strain DO Not Use After 9 Dos Injection Ash Lawrence MD 014 BCG, [place] Strain DO Not Use After 9 Dos Injection WSC2,Nursing Schedule/Proce dure Room 06/05/2014 BCG, [place] Strain DO Not Use After 9 Dos Injection Rodney Sanchez MD 05/19 BCG, [place] Strain DO Not Use After 9 Dos Injection WSC2,Nursing Schedule/[facility] 05/29/2014 BCG, [place] Strain DO Not Use After 9 Dos Injection Jose Pichardo MD 01/2014 BCG, [place] Strain DO Not Use After 9 Dos Injection WSC2,Nursing Schedule/[facility] 05/22/2014 BCG, Shann[place] Strain DO Not Use After 9 Dos Injection Kerry Mcclure 05/15/2014 BCG, [place]ann[place] Strain DO Not Use After 9 Dos Injection Kerry Mcclure 05/08/2014 BCG, Shann[place] Strain DO Not Use After 9 Dos Injection Kerry Mcclure 05/01/2014 Mitomycin,5MG Antica Agent Injection Franklin Henry MD 03/23/2014 Immunizations Description No Information Available Vital Signs Date Vital Result Comment 10/23/2020 12:21pm Height 62 inches 5'2" Weight 175.00 lb Weight 79.380 kg BMI (Body Mass Index) 32.0 kg/m2 BP Systolic 167 mmHg BP Diastolic 66 mmHg Heart Rate 59 /min 09/28/2020 11:07am Height 62 inches 5'2" Weight 175.00 lb Weight 79.380 kg BMI (Body Mass Index) 32.0 kg/m2 BP Systolic 171 mmHg BP Diastolic 72 mmHg Heart Rate 65 /min Results Test Acquired Date Facility Test Result H/L Range Note Pathology/Surgical Tissue 10/23/2020 [facility] [address] [place] [address] [phone] Clinical History D09.0 Normal BodySite BLADDER SpecialProcedure BIOPSY Gross Description The specimen is <SEE NOTE> 1 Final Diagnosis LOW-GRADE PAPILL <SEE NOTE> 2 CPTCode 45206 [id number] D09.0 PDF Report SEE IMAGE 230 Ua Routine 10/23/2020 [facility] Inhouse Lab REF TO DR ADDRESS ON ORDER FOR (315)- - Ua Glucose Negative Ua Protein Negative Ua Nitrite Negative Ua Leuko Trace Ua Blood Negative Ua Color Not Entered Ua Ketones Negative Ua Clarity Not Entered Ua Specific [place] 1.025 1.003-1.030 Ua PH 5.5 5.0-7.5 Ua Bilirubin Negative Ua Urobilinogen 0.2 E.U./dL 0.0-1.0 Laboratory test finding 09/28/2020 [facility] [place] [address] [phone] Urine Culture SPECIMEN DESCRIP <SEE NOTE> 3 230 Ua Routine 09/28/2020 [facility] Inhouse Lab REF TO DR ADDRESS ON ORDER FOR (315)- - Ua Glucose Negative Ua Protein Negative Ua Nitrite Negative Ua Leuko Small Ua Blood Negative Ua Color Not Entered Ua Ketones Trace Ua Clarity Not Entered Ua Specific [place] 1.025 1.003-1.030 Ua PH 5.5 5.0-7.5 Ua Bilirubin Negative Ua Urobilinogen 0.2 E.U./dL 0.0-1.0 Urine Cytology 08/30/[address] [facility] [address] [place] [id number] [phone] Clinical History Z85.51 Normal Specimen Adequacy Satisfactory for <SEE NOTE> Normal 4 BodySite Voided - Clean C <SEE NOTE> Normal 5 Gross Description Received in a sp <SEE NOTE> Normal 6 Microscopic Description None. Normal Final Diagnosis NEGATIVE FOR HIG <SEE NOTE> Normal 7 CPTCode 80159 Normal [id number] Z85.51 Normal PDF Report SEE IMAGE 230 Ua Routine 08/30/2020 [facility] Inhouse Lab REF TO DR ADDRESS ON ORDER FOR (315)- - Ua Glucose Negative Ua Protein Negative Ua Nitrite Negative Ua Leuko Negative Ua Blood Negative Ua Color Not Entered Ua Ketones Negative Ua Clarity Not Entered Ua Specific [place] >=1.030 1.003-1.030 Ua PH 5.5 5.0-7.5 Ua [...] CARCINOMA. Procedures Date Code Description Status 10/23/2020 74720 Cystourethroscopy, W ith Fulguration Including Cryosurgery Or Las Completed 08/30/2020 87806 Cystourethroscopy, Separate Proc edure Completed 08/01/2016 [id number] Colonoscopy Completed Medical Devices Description No Information Available Encounters Type Date Location Provider Dx Diagnosis Office Visit 08/30/2020 10:45a [facility]/ [facility] 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 Urology 08/30/2020 - Franklin Henry MD* Z85.51 Personal history of malignant neoplasm of bladder* Comments:* In this case it appears strongly that there is the possibility of recurrence. She has failed multiple episodes of BCG and may do better with some sort of stronger preventive therapy. She might be a candidate for pembrolizumab in addition to BCG. At this point time we need to prove that there is recurrence. We will schedule for cystoscopy bladder biopsy with follow-up thereafter * All * New Medication:* Cephalexin 500 mg - 1 by mouth following office procedure Functional Status Description No Information Available Mental Status Description No Information Available Referrals Description No Information Available
--- OUTSIDE RECORDS SUMMARY | 2020-11-06 12:38 | CCD | Continuity of Care Document ---
Author Author Valerie HENRY MD Organization Unknown Address [address] [place] [address] Phone [phone] Care Team Providers Care Manager Business Name Role Phone Koki Gillette AUTM [phone] Marcelino Dejesus M.D. AUTM [phone] Problems Active Problems Provider Date Malignant tumor [...] Aspirin 81mg Tablets daily Unknown Krill Oil Troutman-3 500mg Capsules qd Unknown Vitamin B 6 [...] SIG Qnty Indications Ordering Provider Date BCG, Shannan Strain - new code eff. 04/18/19 50MG Injection WSC2,Nursing Schedule/Proced ure Room 08/16/2019 BCG, Murdock Strain JW For Waste Inj ection WSC2,Nursing Schedule/Procedure Room 08/09/2019 BCG, Shannan Strain - new code eff. 04/18/19 50MG Injection WSC2,Nursing Schedule/Proced ure Room 08/09/2019 BCG, Shannan Strain JW For Waste Inj ection WSC2,Nursing Schedule/Procedure Room 08/02/2019 BCG, Murdock Strain - new code eff. 04/18/19 50MG Injection WSC2,Nursing Schedule/Proced ure Room 08/02/2019 BCG, Murdock Strain DO Not Use After 9 Dos Injection WSC2,Nursing Schedule/Proce dure Room 01/17/2019 BCG, Murdock Strain DO Not Use After 9 Dos Injection WSC2,Nursing Schedule/Proce dure Room 01/10/2019 BCG, Murdock Strain DO Not Use After 9 Dos Injection WSC2,Nursing Schedule/Proce dure Room 01/03/2019 BCG, Murdock Strain DO Not Use After 9 Dos Injection WSC2,Nursing Schedule/Proce dure Room 07/06/2018 BCG, Shannan Strain DO Not Use After 9 Dos Injection WSC2,Nursing Schedule/Proce dure Room 06/29/2018 BCG, Shannan Strain DO Not Use After 9 Dos Injection WSC2,Nursing Schedule/Proce dure Room 06/22/2018 BCG, Shannan Strain DO Not Use After 9 Dos Injection WSC2,Nursing Schedule/Proce dure Room 03/01/2018 BCG, Shannan Strain DO Not Use After 9 Dos Injection WSC2,Nursing Schedule/Proce dure Room 02/22/2018 BCG, Shannan Strain DO Not Use After 9 Dos Injection WSC2,Nursing Schedule/Proce dure Room 02/15/2018 BCG, Murdock Strain DO Not Use After 9 Dos Injection WSC2,Nursing Schedule/Proce dure Room 02/08/2018 BCG, Murdock Strain DO Not Use After 9 Dos Injection Minnie Calderon MD BCG, Murdock Strain DO Not Use After 9 Dos Injection WSC2,Nursing Schedule/Proce dure Room 01/25/2018 BCG, Murdock Strain DO Not Use After 9 Dos Injection WSC2,Nursing Schedule/Proce dure Room 01/18/2018 Chemoclave Kit Injection WSC2,Nursing Schedule/Procedure Room 01/18/2018 BCG, Murdock Strain DO Not Use After 9 Dos Injection Lucas Deleon MD 09/11 BCG, Murdock Strain DO Not Use After 9 Dos Injection WSC2,Nursing Schedule/Proce dure Room 09/11/2014 BCG, Murdock Strain DO Not Use After 9 Dos Injection Jose Pichardo MD 08/19 BCG, Murdock Strain DO Not Use After 9 Dos Injection WSC2,Nursing Schedule/Proce dure Room 09/04/2014 BCG, Shannan Strain DO Not Use After 9 Dos Injection Arnulfo Larios M.D. 08/28/20 BCG, Murdock Strain DO Not Use After 9 Dos Injection WSC2,Nursing Schedule/Proce dure Room 08/28/2014 BCG, Shannan Strain DO Not Use After 9 Dos Injection Ash Lawrence MD 014 BCG, Murdock Strain DO Not Use After 9 Dos Injection WSC2,Nursing Schedule/Proce dure Room 06/05/2014 BCG, Murdock Strain DO Not Use After 9 Dos Injection Rodney Sanchez MD 05/19 BCG, Shannan Strain DO Not Use After 9 Dos Injection WSC2,Nursing Schedule/Proce dure Room 05/29/2014 BCG, Shannan Strain DO Not Use After 9 Dos Injection Jose Pichardo MD 01/2014 BCG, Murdock Strain DO Not Use After 9 Dos Injection WSC2,Nursing Schedule/Proce dure Room 05/22/2014 BCG, Murdock Strain DO Not Use After 9 Dos Injection Kerry Mcclure 05/15/2014 BCG, Murdock Strain DO Not Use After 9 Dos [...] Range Note Pathology/Surgical Tissue 10/23/2020 [facility] [address] [place] [address] [phone] Clinical History D09.0 Normal BodySite BLADDER SpecialProcedure BIOPSY Gross Description The specimen is <SEE NOTE> 1 Final Diagnosis LOW-GRADE PAPILL <SEE NOTE> 2 CPTCode 09260 SXM0Xhft D09.0 PDF Report SEE IMAGE 230 Ua Routine 10/23/2020 [facility] Inhouse Lab REF TO DR ADDRESS ON ORDER FOR (315)- - Ua Glucose Negative Ua Protein Negative Ua Nitrite Negative Ua Leuko Trace Ua Blood Negative Ua Color Not Entered Ua Ketones Negative Ua Clarity Not Entered Ua Specific [place] 1.025 1.003-1.030 Ua PH 5.5 5.0-7.5 Ua Bilirubin Negative Ua Urobilinogen 0.2 E.U./dL 0.0-1.0 Laboratory test finding 09/28/2020 [facility] [place] [address] [phone] Urine Culture SPECIMEN DESCRIP <SEE NOTE> 3 230 Ua Routine 09/28/2020 [facility] Inhouse Lab REF TO DR ADDRESS ON ORDER FOR (315)- - Ua Glucose Negative Ua Protein Negative Ua Nitrite Negative Ua Leuko Small Ua Blood Negative Ua Color Not Entered Ua Ketones Trace Ua Clarity Not Entered Ua Specific [place] 1.025 1.003-1.030 Ua PH 5.5 5.0-7.5 Ua Bilirubin Negative Ua Urobilinogen 0.2 E.U./dL 0.0-1.0 Urine Cytology 08/30/[address] [facility] [address] [place] [address] [phone] Clinical History Z85.51 Normal Specimen Adequacy Satisfactory for <SEE NOTE> Normal 4 BodySite Voided - Clean C <SEE NOTE> Normal 5 Gross Description Received in a sp <SEE NOTE> Normal 6 Microscopic Description None. Normal Final Diagnosis NEGATIVE FOR HIG <SEE NOTE> Normal 7 CPTCode 35111 Normal FYE1Osvt Z85.51 Normal PDF Report SEE IMAGE 230 Ua Routine 08/30/2020 [facility] Inhouse Lab REF TO DR ADDRESS ON ORDER FOR (315)- - Ua Glucose Negative Ua Protein Negative Ua Nitrite Negative Ua Leuko Negative Ua Blood Negative Ua Color Not Entered Ua Ketones Negative Ua Clarity Not Entered Ua Specific [place] >=1.030 1.003-1.030 Ua PH 5.5 5.0-7.5 Ua [...] CARCINOMA. Procedures Date Code Description Status 10/23/2020 45842 Cystourethroscopy, W ith Fulguration Including Cryosurgery Or Las Completed 08/30/2020 78323 Cystourethroscopy, Separate Proc edure Completed 08/01/2016 [id number] Colonoscopy Completed Medical Devices Description No Information Available Encounters Type Date Location Provider Dx Diagnosis Office Visit 08/30/2020 10:45a 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 08/30/2020 - Franklin Henry [...]
--- OUTSIDE RECORDS SUMMARY | 2020-11-06 12:38 | CCD | Continuity of Care Document ---
Author Author Valerie Dejesus MD Organization Unknown Address [address] [facility] [address] [place] [address] Phone [phone] Care Team Providers Care Electric Crane Operator Name Role Phone Marcelino Dejesus JR, MD AUTM Unavailable Koki Gillette ANP AUTM [phone] IsabelJosephnahomi MACHADO AUTM [phone] Reinier Asencio MD AUTM [phone] Problems Active Problems Provider Date Pure hypercholesterolemia [...] Vaccine Lot # U-Flu Given 06/28/2020 Influenza,Unspecified 42646 Given 09/01/2019 Shingrix Zoster Vaccine (HZV), Recombinant, Subunit, Adjuvanted U-Flu Given 06/27/2019 Influenza,Unspecified 33312 Given 06/03/2019 Shingrix Zoster Vaccine (HZV), Recombinant, Subunit, Adjuvanted U-Flu Given 07/02/2018 Influenza,Unspecified 12261 Given 08/05/2016 Pneumovax 23 [id number] Q2037 Given 07/20/2013 Fluvirin Virus Vaccine 66888 Given 04/30/2010 Zoster Vaccine 04222 Given 09/25/2000 Influenza Virus Vaccine 29722 Refused 07/19/2019 Tetanus/Diptheria(Td)Toxoids Preservative Free Vital Signs [...] H/L Range Note Complete Blood Count 10/25/2020 [place] [facility] Lockstitch Binder: [place] [address] [phone] WBC 9.1 x10*3/UL 4.1 - 10.9 RBC [...] 5.8 x10*3/UL 2.0 - 7.8 A1c 10/25/2020 [facility] Lockstitch Binder: [place] [address] [phone] Hba1c 6.1 % High <5.7 1 Est Avg Glucose 128 mg/dL High 60 - 110 Comprehensive Chem Profile 10/25/2020 [facility] Lockstitch Binder: [place] [address] [phone] Glucose 117 mg/dL High 74 - 99 [...] >60 GFR >= 60 mL/min >60 3 1 Lab Result Notes: Pre-Diabetes 5.7 - [...] LITTLE GFR LEFT ESRD GFR <15 ON RETORT LOAD EXPEDITER Procedures Date Code Description Status 10/03/2020 [id number] Mammogram Completed 08/29/2019 [id number] Mammogram Completed 08/18/2019 [id number] Mammogram Completed 01/05/2019 [id number] Mammogram Completed 05/25/2018 [id number] Mammogram Completed 01/20/2018 [id number] Mammogram Completed 05/27/2017 [id number] Mammogram Completed 05/22/2017 [id number] Mammogram Completed 08/21/2016 [id number] Bone Mineral Density Test Comple trang 05/20/2016 [id number] Mammogram Completed 08/27/2015 [id number] Colonoscopy Completed 05/07/2015 [id number] Mammogram Completed 02/09/2014 [id number] Mammogram Completed 02/07/2013 [id number] Mammogram Completed 08/26/2011 [id number] Mammogram Completed 12/04/2009 [id number] Mammogram Completed 06/02/2008 [id number] Bone Mineral Density Test Comple trang 11/18/2004 [id number] Colonoscopy Completed Medical Devices Description No Information Available Encounters Description No Information Available Assessments Description No Information Available Plan of Treatment No Information Available Functional Status Description No Information Available Mental Status Description No Information Available Referrals Description No Information Available
--- OUTSIDE RECORDS SUMMARY | 2020-11-06 12:38 | CCD | Continuity of Care Document ---
Author Author Lab Schedule, Valerie Ellis Organization Unknown Address [address] [place] [address] Phone Unavailable Care Team Providers Care Liner Man Name Role Phone Marcelino Dejesus JR, MD AUTM Unavailable Koki Gillette ANP AUTM [phone] Edgard Hall DO AUTM [phone] Reinier Asencio MD AUTM [phone] Problems Active Problems Provider Date Pure hypercholesterolemia [...] Vaccine Lot # U-Flu Given 06/28/2020 Influenza,Unspecified 85670 Given 09/01/2019 Shingrix Zoster Vaccine (HZV), Recombinant, Subunit, Adjuvanted U-Flu Given 06/27/2019 Influenza,Unspecified 78002 Given 06/03/2019 Shingrix Zoster Vaccine (HZV), Recombinant, Subunit, Adjuvanted U-Flu Given 07/02/2018 Influenza,Unspecified 47727 Given 08/05/2016 Pneumovax 23 [id number] Q2037 Given 07/20/2013 Fluvirin Virus Vaccine 65005 Given 04/30/2010 Zoster Vaccine 32126 Given 09/25/2000 Influenza Virus Vaccine 57437 Refused 07/19/2019 Tetanus/Diptheria(Td)Toxoids Preservative Free Vital Signs Date Vital Result Comment 08/06/2020 11:05am BP Systolic 134 mmHg BP Diastolic 56 mmHg Heart Rate 63 /min Height 62 inches 5'2" Weight 180.00 lb O2 % BldC Oximetry 96 % BMI (Body Mass Index) 32.9 kg/m2 04/24/2020 11:15am BP Systolic 112 mmHg BP Diastolic 72 mmHg Heart Rate 68 /min Height 62 inches 5'2" Weight 174.00 lb BMI (Body Mass Index) 31.8 kg/m2 Results Test Acquired Date Facility Test Result H/L Range Note Laboratory test finding 10/25/2020 [facility] loli morris Furnace Setter: Dr Marcelino Dejesus [place] [id number] [phone] A1c <pending> Procedures Date Code Description Status 10/03/2020 [id number] Mammogram Completed 08/29/2019 [id number] Mammogram Completed 08/18/2019 [id number] Mammogram Completed 01/05/2019 [id number] Mammogram Completed 05/25/2018 [id number] Mammogram Completed 01/20/2018 [id number] Mammogram Completed 05/27/2017 [id number] Mammogram Completed 05/22/2017 [id number] Mammogram Completed 08/21/2016 [id number] Bone Mineral Density Test Comple trang 05/20/2016 [id number] Mammogram Completed 08/27/2015 [id number] Colonoscopy Completed 05/07/2015 [id number] Mammogram Completed 02/09/2014 [id number] Mammogram Completed 02/07/2013 [id number] Mammogram Completed 08/26/2011 [id number] Mammogram Completed 12/04/2009 [id number] Mammogram Completed 06/02/2008 [id number] Bone Mineral Density Test Comple trang 11/18/2004 [id number] Colonoscopy Completed Medical Devices Description No Information Available Encounters Description No Information Available Assessments Description No Information Available Plan of Treatment Future Appointment(s):* 10/26/2020 11:00 am - Marcelino Dejesus MD at [facility] * 10/26/2020 10:40 am - Nurse #2 at [facility] 04/24/2020 - Marcelino Dejesus MD* All * New Medication:* Pepcid 20 mg - 1 by mouth twice a day Functional Status Description No Information Available Mental Status Description No Information Available Referrals Description No Information Available
--- OUTSIDE RECORDS SUMMARY | 2020-11-06 12:38 | CCD | Continuity of Care Document ---
Author Author Valerie Dejesus MD Organization Unknown Address [address] [facility] [address] [place] [address] Phone [phone] Care Team Providers Care Managed Care Manager Name Role Phone Marcelino Dejesus JR, MD AUTM Unavailable Koki Gillette ANP AUTM [phone] IsabelJosephnahomi MACHADO AUTM [phone] Reinier Asencio MD AUTM [phone] Problems Active Problems Provider Date Pure hypercholesterolemia [...] Vaccine Lot # U-Flu Given 06/28/2020 Influenza,Unspecified 79886 Given 09/01/2019 Shingrix Zoster Vaccine (HZV), Recombinant, Subunit, Adjuvanted U-Flu Given 06/27/2019 Influenza,Unspecified 15941 Given 06/03/2019 Shingrix Zoster Vaccine (HZV), Recombinant, Subunit, Adjuvanted U-Flu Given 07/02/2018 Influenza,Unspecified 24713 Given 08/05/2016 Pneumovax 23 [id number] Q2037 Given 07/20/2013 Fluvirin Virus Vaccine 43407 Given 04/30/2010 Zoster Vaccine 19453 Given 09/25/2000 Influenza Virus Vaccine 70105 Refused 07/19/2019 Tetanus/Diptheria(Td)Toxoids Preservative Free Vital Signs [...] H/L Range Note Complete Blood Count 10/25/2020 [place] [facility] High Value Associate: [place] [address] [phone] WBC 9.1 x10*3/UL 4.1 - 10.9 RBC [...] 5.8 x10*3/UL 2.0 - 7.8 A1c 10/25/2020 [facility] High Value Associate: [place] [address] [phone] Hba1c 6.1 % High <5.7 1 Est Avg Glucose 128 mg/dL High 60 - 110 Comprehensive Chem Profile 10/25/2020 [facility] High Value Associate: Dr Marcelino [place] [id number] [phone] Glucose 117 mg/dL High 74 - 99 [...] mL/min >60 3 Laboratory test finding 10/25/2020 [place] loli Miller High Value Associate: [place] [address] [phone] Thyroid Stimulating Hormone 7.87 uIU/mL High 0.3 6 - 3.74 Laboratory test finding 10/25/2020 [place] loli Miller High Value Associate: Dr [place] [address] [phone] T4 Free 0.89 ng/dL 0.76 - 1.46 [...] LITTLE GFR LEFT ESRD GFR <15 ON ON CAR SUPERVISOR Procedures Date Code Description Status 10/03/2020 [id number] Mammogram Completed 08/29/2019 [id number] Mammogram Completed 08/18/2019 [id number] Mammogram Completed 01/05/2019 [id number] Mammogram Completed 05/25/2018 [id number] Mammogram Completed 01/20/2018 [id number] Mammogram Completed 05/27/2017 [id number] Mammogram Completed 05/22/2017 [id number] Mammogram Completed 08/21/2016 [id number] Bone Mineral Density Test Comple trang 05/20/2016 [id number] Mammogram Completed 08/27/2015 [id number] Colonoscopy Completed 05/07/2015 [id number] Mammogram Completed 02/09/2014 [id number] Mammogram Completed 02/07/2013 [id number] Mammogram Completed 08/26/2011 [id number] Mammogram Completed 12/04/2009 [id number] Mammogram Completed 06/02/2008 [id number] Bone Mineral Density Test Comple trang 11/18/2004 [id number] Colonoscopy Completed Medical Devices Description No Information [...] index [BMI] 33.0-33.9, adult Marcelino Dejesus MD Plan of Treatment Future Appointment(s):* 04/30/2021 8:20 am - Lab Schedule at [facility] * 05/01/2021 10:40 am - Marcelino Dejesus MD at [facility] 10/24/2019 - Marcelino Dejesus MD* [...]
--- OUTSIDE RECORDS SUMMARY | 2020-11-06 12:38 | CCD | Continuity of Care Document ---
Author Author Lab Schedule, Valerie Ellis Organization Unknown Address [address] [place] [address] Phone Unavailable Care Team Providers Care Audio Visual Equipment Rental Clerk Name Role Phone Marcelino Dejesus JR, MD AUTM Unavailable Koki Gillette ANP AUTM [phone] Edgard Hall DO AUTM [phone] Reinier Asencio MD AUTM [phone] Problems Active Problems Provider Date Pure hypercholesterolemia [...] Vaccine Lot # U-Flu Given 06/28/2020 Influenza,Unspecified 47335 Given 09/01/2019 Shingrix Zoster Vaccine (HZV), Recombinant, Subunit, Adjuvanted U-Flu Given 06/27/2019 Influenza,Unspecified 38249 Given 06/03/2019 Shingrix Zoster Vaccine (HZV), Recombinant, Subunit, Adjuvanted U-Flu Given 07/02/2018 Influenza,Unspecified 54162 Given 08/05/2016 Pneumovax 23 [id number] Q2037 Given 07/20/2013 Fluvirin Virus Vaccine 69605 Given 04/30/2010 Zoster Vaccine 53912 Given 09/25/2000 Influenza Virus Vaccine 88760 Refused 07/19/2019 Tetanus/Diptheria(Td)Toxoids Preservative Free Vital Signs [...] H/L Range Note Complete Blood Count 10/25/2020 [facility] Yard Motor Operator: Dr [place] [address] [phone] WBC 9.1 x10*3/UL 4.1 - 10.9 RBC [...] 5.8 x10*3/UL 2.0 - 7.8 A1c 10/25/2020 [facility] Yard Motor Operator: [place] Marcel[place] [address] [phone] Hba1c 6.1 % High <5.7 1 Est Avg Glucose 128 mg/dL High 60 - 110 Comprehensive Chem Profile 10/25/2020 [facility] Yard Motor Operator: Dr Marcel[place] [address] [phone] Glucose 117 mg/dL High 74 - 99 [...] mL/min >60 3 Laboratory test finding 10/25/2020 [facility] Yard Motor Operator: Dr Marcelino Dejesus [place], [place] [id number] [phone] Thyroid Stimulating Hormone 7.87 uIU/mL High 0.3 6 - 3.74 Laboratory test finding 10/25/2020 [facility] Yard Motor Operator: Dr Marcelino [place]jesus [place] [id number] [phone] T4 Free 0.89 ng/dL 0.76 - 1.46 [...] LITTLE GFR LEFT ESRD GFR <15 ON AUTOMOBILE INSURANCE CLAIM EXAMINER Procedures Date Code Description Status 10/03/2020 [id number] Mammogram Completed 08/29/2019 [id number] Mammogram Completed 08/18/2019 [id number] Mammogram Completed 01/05/2019 [id number] Mammogram Completed 05/25/2018 [id number] Mammogram Completed 01/20/2018 [id number] Mammogram Completed 05/27/2017 [id number] Mammogram Completed 05/22/2017 [id number] Mammogram Completed 08/21/2016 [id number] Bone Mineral Density Test Comple trang 05/20/2016 [id number] Mammogram Completed 08/27/2015 [id number] Colonoscopy Completed 05/07/2015 [id number] Mammogram Completed 02/09/2014 [id number] Mammogram Completed 02/07/2013 [id number] Mammogram Completed 08/26/2011 [id number] Mammogram Completed 12/04/2009 [id number] Mammogram Completed 06/02/2008 [id number] Bone Mineral Density Test Comple trang 11/18/2004 [id number] Colonoscopy Completed Medical Devices Description No Information [...] 04/30/2021 8:20 am - Lab Schedule at [facility] * 05/01/2021 10:40 am - Marcelino Dejesus MD at [facility] 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
--- OUTSIDE RECORDS SUMMARY | 2020-11-06 12:38 | CCD | Continuity of Care Document ---
Author Author Lab Schedule, Valerie Ellis Organization Unknown Address [address] [place] [address] Phone Unavailable Care Team Providers Care Cradle Placer Name Role Phone Marcelino Dejesus JR, MD AUTM Unavailable Koki Gillette ANP AUTM [phone] Edgard Hall DO AUTM [phone] Reinier Asencio MD AUTM [phone] Problems Active Problems Provider Date Pure hypercholesterolemia [...] repeat in 2 to 6 months 2units Marcelnio Dejesus MD 07/20/2018 Krill Oil 1000mg Capsules [...] Vaccine Lot # U-Flu Given 06/28/2020 Influenza,Unspecified 05341 Given 09/01/2019 Shingrix Zoster Vaccine (HZV), Recombinant, Subunit, Adjuvanted U-Flu Given 06/27/2019 Influenza,Unspecified 44890 Given 06/03/2019 Shingrix Zoster Vaccine (HZV), Recombinant, Subunit, Adjuvanted U-Flu Given 07/02/2018 Influenza,Unspecified 49258 Given 08/05/2016 Pneumovax 23 [id number] Q2037 Given 07/20/2013 Fluvirin Virus Vaccine 14565 Given 04/30/2010 Zoster Vaccine 49407 Given 09/25/2000 Influenza Virus Vaccine 67654 Refused 07/19/2019 Tetanus/Diptheria(Td)Toxoids Preservative Free Vital Signs [...] H/L Range Note Complete Blood Count 10/25/2020 [facility] Delicatessen Goods Stock Clerk: [place] [address] [phone] WBC 9.1 x10*3/UL 4.1 - 10.9 RBC [...] 5.8 x10*3/UL 2.0 - 7.8 A1c 10/25/2020 [facility] Delicatessen Goods Stock Clerk: Dr Marcelino [place] [address] [phone] Hba1c 6.1 % High <5.7 1 Est Avg Glucose 128 mg/dL High 60 - 110 Comprehensive Chem Profile 10/25/2020 [facility] Delicatessen Goods Stock Clerk: Dr Marcelino [place] [address] [phone] Glucose 117 mg/dL High 74 - 99 [...] LITTLE GFR LEFT ESRD GFR <15 ON COMPTROLLER Procedures Date Code Description Status 10/03/2020 [id number] Mammogram Completed 08/29/2019 [id number] Mammogram Completed 08/18/2019 [id number] Mammogram Completed 01/05/2019 [id number] Mammogram Completed 05/25/2018 [id number] Mammogram Completed 01/20/2018 [id number] Mammogram Completed 05/27/2017 [id number] Mammogram Completed 05/22/2017 [id number] Mammogram Completed 08/21/2016 [id number] Bone Mineral Density Test Comple trang 05/20/2016 [id number] Mammogram Completed 08/27/2015 [id number] Colonoscopy Completed 05/07/2015 [id number] Mammogram Completed 02/09/2014 [id number] Mammogram Completed 02/07/2013 [id number] Mammogram Completed 08/26/2011 [id number] Mammogram Completed 12/04/2009 [id number] Mammogram Completed 06/02/2008 [id number] Bone Mineral Density Test Comple trang 11/18/2004 [id number] Colonoscopy Completed Medical Devices Description No Information Available Encounters Description No Information Available Assessments Description No Information Available Plan of Treatment No Information Available Functional Status Description No Information Available Mental Status Description No Information Available Referrals Description No Information Available
--- OUTSIDE RECORDS SUMMARY | 2020-11-06 12:38 | CCD | Continuity of Care Document ---
Author Author Nurse #Valerie Rodriguez Organization Unknown Address [address] [facility] [address] [place] [address] Phone Unavailable Care Team Providers Care Naval Gunfire Liaison Officer Name Role Phone Marcelino Dejesus JR, MD AUTM Unavailable Koki Gillette ANP AUTM [phone] Edgard Hall DO AUTM [phone] Reinier Asencio MD AUTM [phone] Problems Active Problems Provider Date Pure hypercholesterolemia [...] 1 po qd prn 9 0units Marcelino Dejseus MD 08/30/2004 Clopidogrel Bisulfate 75mg Tablets Take [...] Vaccine Lot # U-Flu Given 06/28/2020 Influenza,Unspecified [id number] Given 09/01/2019 Shingrix Zoster Vaccine (HZV), Recombinant, Subunit, Adjuvanted U-Flu Given 06/27/2019 Influenza,Unspecified 10428 Given 06/03/2019 Shingrix Zoster Vaccine (HZV), Recombinant, Subunit, Adjuvanted U-Flu Given 07/02/2018 Influenza,Unspecified 35160 Given 08/05/2016 Pneumovax 23 [id number] Given 07/20/2013 Fluvirin Virus Vaccine 76341 Given 04/30/2010 Zoster Vaccine 98221 Given 09/25/2000 Influenza Virus Vaccine 70280 Refused 07/19/2019 Tetanus/Diptheria(Td)Toxoids Preservative Free Vital Signs [...] H/L Range Note Complete Blood Count 10/25/2020 [place] [facility] Mental Retardation Aide: [place] [address] [phone] WBC 9.1 x10*3/UL 4.1 - 10.9 RBC [...] 5.8 x10*3/UL 2.0 - 7.8 A1c 10/25/2020 [place] [facility] Mental Retardation Aide: Dr Marcelino [place] [address] [phone] Hba1c 6.1 % High <5.7 1 Est Avg Glucose 128 mg/dL High 60 - 110 Comprehensive Chem Profile 10/25/2020 [facility] [place] [facility] Mental Retardation Aide: Dr Marcelino [place] [address] [phone] Glucose 117 mg/dL High 74 - 99 [...] LITTLE GFR LEFT ESRD GFR <15 ON COMMISSIONS COORDINATOR Procedures Date Code Description Status 10/03/2020 [id number] Mammogram Completed 08/29/2019 [id number] Mammogram Completed 08/18/2019 [id number] Mammogram Completed 01/05/2019 [id number] Mammogram Completed 05/25/2018 [id number] Mammogram Completed 01/20/2018 [id number] Mammogram Completed 05/27/2017 [id number] Mammogram Completed 05/22/2017 [id number] Mammogram Completed 08/21/2016 [id number] Bone Mineral Density Test Comple trang 05/20/2016 [id number] Mammogram Completed 08/27/2015 [id number] Colonoscopy Completed 05/07/2015 [id number] Mammogram Completed 02/09/2014 [id number] Mammogram Completed 02/07/2013 [id number] Mammogram Completed 08/26/2011 [id number] Mammogram Completed 12/04/2009 [id number] Mammogram Completed 06/02/2008 [id number] Bone Mineral Density Test Comple trang 11/18/2004 [id number] Colonoscopy Completed Medical Devices Description No Information Available Encounters Description No Information Available Assessments Description No Information Available Plan of Treatment No Information Available Functional Status Description No Information Available Mental Status Description No Information Available Referrals Description No Information Available
--- OUTSIDE RECORDS SUMMARY | 2020-11-06 12:39 | CCD | Continuity of Care Document ---
Author Author Ryder/Valerie THAO Organization Unknown Address [address] [place] [address] Phone [phone] Care Team Providers Care Bagging Machine Operator Name Role Phone Marcelino Dejesus M.D. [facility] [phone] Problems Active Problems Provider Date Cerebral artery occlusion Reinier Asencio M.D. Onset: 08/29 Abnormal vision Reinier Asencio M.D. Onset: 08/29/2019 Social History Type Date Description Comments Sex Unknown Tobacco Use Start: Unknown End: Unknown Patient is a former smoker Allergies, Adverse Reactions, Alerts Active Allergies Reaction Severity Comments Date Lipitor 08/29/2019 Medications Active Medications SIG Qnty Indications Ordering Provide r Date Simvastatin 40mg Tablets take 1 tab by mouth every night at bedtime 90tabs Jd Lynne Plavix 75mg Tablets 1 by mouth every day 30tabs Reinier Asencio M.D. Aspirin [address] Reinier Asencio M.D. Immunizations Description No Information Available Vital Signs Date Vital Result Comment 08/24/2020 11:16am Respiratory Rate 12 /min Height 62 inches 5'2" Weight 173.00 lb BMI (Body Mass Index) 31.6 kg/m2 [place] Body Weight 110 lb 05/17/2020 2:27pm BP Systolic 120 mmHg BP Diastolic 44 mmHg Heart Rate 61 /min Respiratory Rate 12 /min Height 62 inches 5'2" Weight 173.00 lb BMI (Body Mass Index) 31.6 kg/m2 [place] Body Weight 110 lb Results Description No Information Available Procedures Date Code Description Status 09/01/2020 17561 MRI Brain W/O Contrast Completed 09/01/2020 69051 MRI Brain W/O Contrast Completed 09/01/2020 77134 Magnetic Resonance Angiography N jose roberto W/O Contrast Materials Completed 09/01/2020 83650 Magnetic Resonance Angiography N jose roberto W/O Contrast Materials Completed 09/01/2020 07387 Magnetic Resonance Angiogtaphy H ead W/O Contrast Material(S) Completed 09/01/2020 57465 Magnetic Resonance Angiogtaphy H ead W/O Contrast Material(S) Completed Medical Devices Description No Information Available Encounters Type Date Location Provider Dx Diagnosis Office Visit 08/24/2020 10:45a [facility] office - [place] Reinier cameron M.D. I63.9 Cerebral infarction, unspecified Office Visit 05/17/2020 2:15p [facility] office - [place] Reinier cameron M.D. I63.9 Cerebral infarction, unspecified Assessments Date Code Description Provider 09/01/2020 I63.9 Cerebral infarction, unspecified Miley Sera, JdDKobe 09/01/2020 I63.9 Cerebral infarction, unspecified MRI 09/01/2020 R26.81 Unsteadiness on feet Miley Sera , JdDKobe 09/01/2020 R26.81 Unsteadiness on feet MRI 09/01/2020 H53.123 Transient visual loss, bilateral Miley Sera, M.DKobe 09/01/2020 H53.123 Transient visual loss, bilateral MRI 08/24/2020 I63.9 Cerebral infarction, unspecified Reinier Asencio M.D. 05/17/2020 I63.9 Cerebral infarction, unspecified Reinier Asencio M.D. Plan of Treatment Future Appointment(s):* 11/27/2020 2:30 pm - Reinier Asencio M.D. at Main office - [place] Functional Status Description No Information Available Mental Status Description No Information Available Referrals Refer to Dr Reason for Referral Status Appt Date Reinier Asencio M.D. Created [address] [place] [address] [phone]
--- OUTSIDE RECORDS SUMMARY | 2020-11-06 12:39 | CCD | Continuity of Care Document ---
Author Author Valerie HENRY MD Organization Unknown Address [address] [place] [address] Phone [phone] Care Team Providers Care Dragline Operator Helper Name Role Phone Koki Gillette AUTM [phone] Marcelino Dejesus M.D. AUTM [phone] Problems Active Problems Provider Date Malignant tumor [...] Daily smoked ages [age] Smoking Status Reviewed: 08/30/20 Former Cigarette Smoker 1 Pac k Daily [...] Aspirin 81mg Tablets daily Unknown Krill Oil [place]-3 500mg Capsules qd Unknown Vitamin B 6 50mg Tablets 2 by mouth every day Unknown Clopidogrel Bisulfate 75mg Tablets Marcelino Dejesus JR, M.D. Simvastatin 40mg Tablets Marcelino Dejesus JR, M.D. Pepcid Unknown Zinc Unknown History Medications Cephalexin 500mg Capsules 1 by mouth following office procedure Franklin franks MD 08/30/2020 - 08/31/2020 Medications Administered in Office Medication SIG Qnty Indications Ordering Provider Date BCG, Shannan Strain - new code eff. 04/18/19 50MG Injection WSC2,Nursing Schedule/Proced ure Room 08/16/2019 BCG, Bonadelle Ranchos Strain JW For Waste Inj ection WSC2,Nursing Schedule/Procedure Room 08/09/2019 BCG, Shannan Strain - new code eff. 04/18/19 50MG Injection WSC2,Nursing Schedule/Proced ure Room 08/09/2019 BCG, Shannan Strain JW For Waste Inj ection WSC2,Nursing Schedule/Procedure Room 08/02/2019 BCG, Bonadelle Ranchos Strain - new code eff. 04/18/19 50MG Injection WSC2,Nursing Schedule/Proced ure Room 08/02/2019 BCG, Bon[place]elle Ranchos Strain DO Not Use After 9 Dos Injection WSC2,Nursing Schedule/Proce dure Room 01/17/2019 BCG, Bon[place]elle Ranchos Strain DO Not Use After 9 Dos Injection WSC2,Nursing Schedule/Proce dure Room 01/10/2019 BCG, Bonadelle Ranchos Strain DO Not Use After 9 Dos Injection WSC2,Nursing Schedule/Proce dure Room 01/03/2019 BCG, Bon[place]elle Ranchos Strain DO Not Use After 9 Dos Injection WSC2,Nursing Schedule/Proce dure Room 07/06/2018 BCG, Shannan Strain DO Not Use After 9 Dos Injection WSC2,Nursing Schedule/Proce dure Room 06/29/2018 BCG, Shannan Strain DO Not Use After 9 Dos Injection WSC2,Nursing Schedule/Proce dure Room 06/22/2018 BCG, Bonadelle Ranchos Strain DO Not Use After 9 Dos Injection WSC2,Nursing Schedule/Proce dure Room 03/01/2018 BCG, Bonadelle Ranchos Strain DO Not Use After 9 Dos Injection WSC2,Nursing Schedule/Proce dure Room 02/22/2018 BCG, Bon[place]elle Ranchos Strain DO Not Use After 9 Dos Injection WSC2,Nursing Schedule/Proce dure Room 02/15/2018 BCG, Bon[place]elle Ranchos Strain DO Not Use After 9 Dos Injection WSC2,Nursing Schedule/Proce dure Room 02/08/2018 BCG, Shannan Strain DO Not Use After 9 Dos Injection Minnie Calderon MD BCG, [place] Strain DO Not Use After 9 Dos Injection WSC2,Nursing Schedule/Proce dure Room 01/25/2018 BCG, [place]elle [place]os Strain DO Not Use After 9 Dos [...] Dos Injection Jose Pichardo MD 08/19 BCG, Shannan Strain DO Not Use After 9 Dos Injection WSC2,Nursing Schedule/Proce dure Room 09/04/2014 BCG, Shannan Strain DO Not Use After 9 Dos Injection Arnulfo Larios M.D. 08/28/20 14 BCG, Shannan Strain DO Not Use After 9 Dos Injection WSC2,Nursing Schedule/Proce dure Room 08/28/2014 BCG, Bonadelle Ranchos Strain DO Not Use After 9 Dos Injection Ash Lawrence MD 014 BCG, Bon[place]elle Ranchos Strain DO Not Use After 9 Dos Injection WSC2,Nursing Schedule/Proce dure Room 06/05/2014 BCG, Bon[place]elle [place]os Strain DO Not Use After 9 Dos Injection Rodney Sanchez MD 05/19 BCG, [place]elle [place]os Strain DO Not Use After 9 Dos Injection WSC2,Nursing Schedule/Proce [facility] Room 05/29/2014 BCG, Shannan Strain DO Not Use After 9 Dos Injection Jose Pichardo MD 01/2014 BCG, Bon[place]elle Ranchos Strain DO Not Use After 9 Dos Injection WSC2,Nursing Schedule/Proce [facility] Room 05/22/2014 BCG, Bon[place]elle [place]os Strain DO Not Use After 9 Dos Injection Kerry Mcclure 05/15/2014 BCG, Shannan Strain DO Not Use After 9 Dos Injection Kerry Mcclure 05/08/2014 BCG, Bonadelle Ranchos Strain DO Not Use After 9 Dos Injection Kerry Mcclure 05/01/2014 Mitomycin,5MG Antica Agent Injection Franklin Henry MD 03/23/2014 Immunizations Description No Information Available Vital Signs Date Vital Result Comment 08/30/2020 10:53am Height 62 inches 5'2" Weight 175.00 lb Weight 79.380 kg BMI (Body Mass Index) 32.0 kg/m2 BP Systolic 175 mmHg BP Diastolic 78 mmHg Heart Rate 54 /min 08/31/2019 9:44am Height 62 inches 5'2" Weight 184.00 lb Weight 83.462 kg BMI (Body Mass Index) 33.7 kg/m2 BP Systolic 165 mmHg BP Diastolic 69 mmHg Heart Rate 64 /min Results Test Acquired Date Facility Test Result H/L Range Note Urine Cytology 08/30/2020 [facility] [address] [place] [address] [phone] Clinical History Z85.51 Normal Specimen Adequacy Satisfactory for <SEE NOTE> Normal 1 BodySite Voided - Clean C <SEE NOTE> Normal 2 Gross Description Received in a sp <SEE NOTE> Normal 3 Microscopic Description None. Normal Final Diagnosis NEGATIVE FOR HIG <SEE NOTE> Normal 4 CPTCode 59895 Normal [id number] Z85.51 Normal PDF Report SEE IMAGE 230 Ua Routine 08/30/2020 [facility] REF TO DR ADDRESS ON ORDER FOR (315)- - Ua Glucose Negative Ua Protein Negative Ua Nitrite Negative Ua Leuko Negative Ua Blood Negative Ua Color Not Entered Ua Ketones Negative Ua Clarity Not Entered Ua Specific [place] >=1.030 1.003-1.030 Ua PH 5.5 5.0-7.5 Ua Bilirubin Negative Ua Urobilinogen 0.2 E.U./dL 0.0-1.0 1 Satisfactory for evaluation. 2 Voided - Clean Catch 3 Received in a specimen conta iner, labeled with the patients name and , is Cloudy Yellow fluid consistent with urine, measuring approximately 30 ml. 4 NEGATIVE FOR HIGH-GRADE UROT HELIAL CARCINOMA. Procedures Date Code Description Status 08/30/2020 94397 Cystourethroscopy, Separate Proc edure Completed 08/01/2016 [id number] Colonoscopy Completed Medical Devices Description No Information Available Encounters Type Date Location Provider Dx Diagnosis Office Visit 08/30/2020 10:45a 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 08/30/2020 - Franklin Henry MD* Z85.51 [...]
--- OUTSIDE RECORDS SUMMARY | 2020-11-06 12:39 | CCD | Continuity of Care Document ---
Author Author Valerie HENRY MD Organization Unknown Address [address] [place] [address] Phone [phone] Care Team Providers Care Bead Inspector Name Role Phone Koki Gillette AUTM [phone] Marcelino Dejesus M.D. AUTM [phone] Problems Active Problems Provider Date Malignant tumor [...] SIG Qnty Indications Ordering Provide r Date Cephalexin 500mg Tablets 1 tab by mouth following office procedure 1tabs Franklin franks MD 10/23/2020 Vitamin B12 5000mcg Tablets 1 by mouth every day Franklin Henry MD 06/2018 Lexapro 10mg Tablets Unknown Ziac 5-6.25mg Tablets Unknown Fexofenadine HCL 180mg Tablets Unknown Vitamin D3 25mcg Tablets Unknown Aspirin 81mg Tablets daily Unknown Krill Oil [place]-3 500mg Capsules qd Unknown Vitamin B 6 50mg Tablets 2 by mouth every day Unknown Clopidogrel Bisulfate 75mg Tablets Marcelino Dejesus JR, M.D. Simvastatin 40mg Tablets Marcelino Dejesus JR, M.D. Pepcid Unknown Zinc Unknown History Medications Keflex 500mg Capsules 1 by mouth twice a day 14caps Franklin Henry MD 11/2019 - 10/22/2020 Cephalexin 500mg Capsules 1 by mouth following office procedure Franklin franks MD 08/30/2020 - 08/31/2020 Medications Administered in Office Medication SIG Qnty Indications Ordering Provider Date BCG, Peck Strain - new code eff. 04/18/19 50MG Injection WSC2,Nursing Schedule/Proced ure Room 08/16/2019 BCG, Shannan Strain JW For Waste Inj ection WSC2,Nursing Schedule/Procedure Room 08/09/2019 BCG, Shannan Strain - new code eff. 04/18/19 50MG Injection WSC2,Nursing Schedule/Proced ure Room 08/09/2019 BCG, Peck Strain JW For Waste Inj ection WSC2,Nursing Schedule/Procedure Room 08/02/2019 BCG, Peck Strain - new code eff. 04/18/19 50MG Injection WSC2,Nursing Schedule/Proced ure Room 08/02/2019 BCG, Shannan Strain DO Not Use After [...] Injection WSC2,Nursing Schedule/Proce dure Room 03/01/2018 BCG, Peck Strain DO Not Use After 9 Dos Injection WSC2,Nursing Schedule/Proce dure Room 02/22/2018 BCG, Shannan Strain DO Not Use After 9 Dos Injection WSC2,Nursing Schedule/Proce dure Room 02/15/2018 BCG, Shannan Strain DO Not Use After 9 Dos Injection WSC2,Nursing Schedule/Proce dure Room 02/08/2018 BCG, Shannan Strain DO Not Use After 9 Dos Injection Minnie Calderon MD BCG, Peck Strain DO Not Use After 9 Dos Injection WSC2,Nursing Schedule/Proce dure Room 01/25/2018 BCG, Peck Strain DO Not Use After 9 Dos Injection WSC2,Nursing Schedule/Proce dure Room 01/18/2018 Chemoclave Kit Injection WSC2,Nursing Schedule/Procedure Room 01/18/2018 BCG, Shannan Strain DO Not Use After 9 Dos Injection Lucas Deleon MD 09/11 BCG, Peck Strain DO Not Use After 9 Dos Injection WSC2,Nursing Schedule/Proce dure Room 09/11/2014 BCG, Peck Strain DO Not Use After 9 Dos Injection Jose Pichardo MD 08/19 BCG, Peck Strain DO Not Use After 9 Dos Injection WSC2,Nursing Schedule/Proce dure Room 09/04/2014 BCG, Peck Strain DO Not Use After 9 Dos Injection Arnulfo Larios M.D. 08/28/20 14 BCG, Shannan Strain DO Not Use After 9 Dos Injection WSC2,Nursing Schedule/Proce dure Room 08/28/2014 BCG, Peck Strain DO Not Use After 9 Dos Injection Ash Lawrence MD 014 BCG, Shannan Strain DO Not Use After 9 Dos Injection WSC2,Nursing Schedule/Proce dure Room 06/05/2014 BCG, Shannan Strain DO Not Use After 9 Dos Injection Rodney Sanchez MD 05/19 BCG, Peck Strain DO Not Use After 9 Dos Injection WSC2,Nursing Schedule/Proce dure Room 05/29/2014 BCG, Peck Strain DO Not Use After 9 Dos Injection Jose Pichardo MD 01/2014 BCG, Shannan Strain DO Not Use After 9 Dos Injection WSC2,Nursing Schedule/Proce dure Room 05/22/2014 BCG, Peck Strain DO Not Use After 9 Dos Injection Kerry Mcclure 05/15/2014 BCG, Peck Strain DO Not Use After 9 Dos [...] Result H/L Range Note Laboratory test finding 10/23/2020 [facility] [address] [place] [address] [phone] Pathology/Surgical Tissue <pending> 230 Ua Routine 10/23/2020 [facility] REF TO DR ADDRESS ON ORDER FOR (315)- - Ua Glucose Negative Ua Protein Negative Ua Nitrite Negative Ua Leuko Trace Ua Blood Negative Ua Color Not Entered Ua Ketones Negative Ua Clarity Not Entered Ua Specific [place] 1.025 1.003-1.030 Ua PH 5.5 5.0-7.5 Ua Bilirubin Negative Ua Urobilinogen 0.2 E.U./dL 0.0-1.0 Laboratory test finding 09/28/2020 [facility] [address] [phone] Urine Culture SPECIMEN DESCRIP <SEE NOTE> 1 230 Ua Routine 09/28/2020 [facility] REF TO DR ADDRESS ON ORDER FOR (315)- - Ua Glucose Negative Ua Protein Negative Ua Nitrite Negative Ua Leuko Small Ua Blood Negative Ua Color Not Entered Ua Ketones Trace Ua Clarity Not Entered Ua Specific [place] 1.025 1.003-1.030 Ua PH 5.5 5.0-7.5 Ua Bilirubin Negative Ua Urobilinogen 0.2 E.U./dL 0.0-1.0 Urine Cytology 08/30/2020 [facility] [address] [place] [address] [phone] Clinical History Z85.51 Normal Specimen Adequacy Satisfactory for <SEE NOTE> Normal 2 BodySite Voided - Clean C <SEE NOTE> Normal 3 Gross Description Received in a sp <SEE NOTE> Normal 4 Microscopic Description None. Normal Final Diagnosis NEGATIVE FOR HIG <SEE NOTE> Normal 5 CPTCode 34858 Normal [id number] Z85.51 Normal PDF Report SEE IMAGE 230 Ua Routine 08/30/2020 [facility] REF TO DR ADDRESS ON ORDER FOR (315)- - Ua Glucose Negative Ua Protein Negative Ua Nitrite Negative Ua Leuko Negative Ua Blood Negative Ua Color Not Entered Ua Ketones Negative Ua Clarity Not Entered Ua Specific [place] >=1.030 1.003-1.030 Ua PH 5.5 5.0-7.5 Ua Bilirubin Negative Ua Urobilinogen 0.2 E.U./dL 0.0-1.0 1 SPECIMEN DESCRIPTION URINE, COLLECTION METHOD NOT SPECIFIED CULTURE RESULTS NO GROWTH REPORT STATUS FINAL 09/29/2020 2 Satisfactory for evaluation. 3 Voided - Clean Catch 4 Received in a specimen conta iner, labeled with the patients name and , is Cloudy Yellow fluid consistent with urine, measuring approximately 30 ml. 5 NEGATIVE FOR HIGH-GRADE UROT HELIAL CARCINOMA. Procedures Date Code Description Status 08/30/2020 98232 Cystourethroscopy, Separate Proc edure Completed 08/01/2016 [id number] Colonoscopy Completed Medical Devices Description No Information Available Encounters Type Date Location Provider Dx Diagnosis Office Visit 08/30/2020 10:45a [facility]/ [facility]... 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
--- OUTSIDE RECORDS SUMMARY | 2020-11-06 12:39 | CCD | Continuity of Care Document ---
Author Author Valerie James Organization Unknown Address [address] [place] [address] Phone [phone] Care Team Providers Care Feed Mixer Helper Name Role Phone Marcelino Dejesus M.D. [facility] [phone] Problems Active Problems Provider Date Cerebral artery [...] lb BMI (Body Mass Index) 31.6 kg/m2 [place] Body Weight 110 lb 05/17/2020 2:27pm BP Systolic 120 mmHg BP Diastolic 44 mmHg Heart Rate 61 /min Respiratory Rate 12 /min Height 62 inches 5'2" Weight 173.00 lb BMI (Body Mass Index) 31.6 kg/m2 [place] Body Weight 110 lb Results Description No Information Available Procedures Date Code Description Status 09/19/2020 28459 Sympathetic Skin Responses Compl eted 09/19/2020 35251 Sympathetic Skin Responses Compl eted 09/19/2020 26281 Test Autonomic Nervous System, C ardiovagal Innervation Completed 09/19/2020 64399 Test Autonomic Nervous System, C ardiovagal Innervation Completed 09/01/2020 54338 MRI Brain W/O Contrast Completed 09/01/2020 49723 MRI Brain W/O Contrast Completed 09/01/2020 80902 Magnetic Resonance Angiography N jose roberto W/O Contrast Materials Completed 09/01/2020 92978 Magnetic Resonance Angiography N jose roberto W/O Contrast Materials Completed 09/01/2020 02875 Magnetic Resonance Angiogtaphy H ead W/O Contrast Material(S) Completed 09/01/2020 25381 Magnetic Resonance Angiogtaphy H ead W/O Contrast Material(S) Completed Medical Devices Description No Information Available Encounters Type Date Location Provider Dx Diagnosis Office Visit 08/24/2020 10:45a Main office - [place] Reinier cameron M.D. I63.9 Cerebral infarction, unspecified Office Visit 05/17/2020 2:15p Main office - [place] Reinier cameron M.D. I63.9 Cerebral infarction, unspecified Assessments Date Code Description Provider 09/19/2020 G62.9 Polyneuropathy, unspecified Venkata Asencio M.D. 09/19/2020 G62.9 Polyneuropathy, unspecified Ans/ VS 09/01/2020 I63.9 Cerebral infarction, unspecified Miley SeraJackelyn dalton 09/01/2020 I63.9 Cerebral infarction, unspecified MRI 09/01/2020 R26.81 Unsteadiness on feet Miley Sera , JdDKobe 09/01/2020 R26.81 Unsteadiness on feet MRI 09/01/2020 H53.123 Transient visual loss, bilateral Miley Sera, JdDKobe 09/01/2020 H53.123 Transient visual loss, bilateral MRI 08/24/2020 I63.9 Cerebral infarction, unspecified Reinier Asencio M.D. 05/17/2020 I63.9 Cerebral infarction, unspecified Reinier Asencio M.D. Plan of Treatment Future Appointment(s):* 11/27/2020 2:30 pm - Reinier Asencio M.D. at [facility] Functional Status Description No Information Available Mental Status Description No Information Available Referrals Refer to Reason for Referral Status Appt Date Reinier Asencio M.D. Created 0 [address] [place] [address] [phone]
--- OUTSIDE RECORDS SUMMARY | 2020-11-06 12:39 | CCD | Continuity of Care Document ---
Author Author Valerie HENRY MD Organization Unknown Address [address] [place] [address] Phone [phone] Care Team Providers Care Farm Equipment Operator Name Role Phone Koki Gillette AUTM [phone] Marcelino Dejesus M.D. AUTM [phone] Problems Active Problems Provider Date Malignant tumor [...] Aspirin 81mg Tablets daily Unknown Krill Oil [place]-3 500mg Capsules qd Unknown Vitamin B 6 [...] SIG Qnty Indications Ordering Provider Date BCG, [place] Strain - new code eff. 04/18/19 50MG Injection WSC2,Nursing Schedule/Proced ure Room 08/16/2019 BCG, [place] Strain JW For Waste Inj ection WSC2,Nursing Schedule/Procedure Room 08/09/2019 BCG, [place] Strain - new code eff. 04/18/19 50MG Injection WSC2,Nursing Schedule/Proced ure Room 08/09/2019 BCG, [place] Strain JW For Waste Inj ection WSC2,Nursing Schedule/Procedure Room 08/02/2019 BCG, [place] Strain - new code eff. 04/18/19 50MG [...] Injection WSC2,Nursing Schedule/Proce dure Room 03/01/2018 BCG, [place] Strain DO Not Use After 9 Dos Injection WSC2,Nursing Schedule/Proce dure Room 02/22/2018 BCG, [place] Strain DO Not Use After 9 Dos Injection WSC2,Nursing Schedule/Proce dure Room 02/15/2018 BCG, [place] Strain DO Not Use After 9 Dos Injection WSC2,Nursing Schedule/Proce dure Room 02/08/2018 BCG, [place] Strain DO Not Use After 9 Dos Injection Minnie Calderon MD BCG, [place] Strain DO Not Use After 9 Dos Injection WSC2,Nursing Schedule/Proce dure Room 01/25/2018 BCG, [place] Strain DO Not Use After 9 Dos Injection WSC2,Nursing Schedule/Proce dure Room 01/18/2018 Chemoclave Kit Injection WSC2,Nursing Schedule/Procedure Room 01/18/2018 BCG, [place] Strain DO Not Use After 9 Dos Injection Lucas Deleon MD 09/11 BCG, [place] Strain DO Not Use After 9 Dos Injection WSC2,Nursing Schedule/Proce dure Room 09/11/2014 BCG, [place] Strain DO Not Use After 9 Dos Injection Jose Pichardo MD 08/19 BCG, [place] Strain DO Not Use After 9 Dos Injection WSC2,Nursing Schedule/Proce dure Room 09/04/2014 BCG, [place] Strain DO Not Use After 9 Dos Injection Arnulfo Larios M.D. 08/28/20 14 BCG, [place]ann[place] Strain DO Not Use After 9 Dos Injection WSC2,Nursing Schedule/Proce dure Room 08/28/2014 BCG, [place] Strain DO Not Use After 9 Dos Injection Ash Lawrence MD 014 BCG, [place]ann[place] Strain DO Not Use After 9 Dos Injection WSC2,Nursing Schedule/Proce dure Room 06/05/2014 BCG, [place] Strain DO Not Use After 9 Dos Injection Rodney Sanchez MD 05/19 BCG, [place] Strain DO Not Use After 9 Dos Injection WSC2,Nursing Schedule/Proce dure Room 05/29/2014 BCG, [place] Strain DO Not Use After 9 Dos Injection Jose Pichardo MD 01/2014 BCG, [place] Strain DO Not Use After 9 Dos Injection WSC2,Nursing Schedule/Proce dure Room 05/22/2014 BCG, [place] Strain DO Not Use After 9 Dos Injection Kerry Mcclure 05/15/2014 BCG, [place] Strain DO Not Use After 9 Dos [...] Note Laboratory test finding 10/23/2020 [facility] [address] [place] [address] [phone] Pathology/Surgical Tissue <pending> 230 Ua Routine 10/23/2020 [facility] REF TO DR ADDRESS ON ORDER FOR (315)- - Ua Glucose Negative Ua Protein Negative Ua Nitrite Negative Ua Leuko Trace Ua Blood Negative Ua Color Not Entered Ua Ketones Negative Ua Clarity Not Entered Ua Specific [place] 1.025 1.003-1.030 Ua PH 5.5 5.0-7.5 Ua Bilirubin Negative Ua Urobilinogen 0.2 E.U./dL 0.0-1.0 Laboratory test finding 09/28/2020 [facility] [address] [phone] Urine Culture SPECIMEN DESCRIP <SEE NOTE> 1 230 Ua Routine 09/28/2020 [facility] REF TO DR ADDRESS ON ORDER FOR (315)- - Ua Glucose Negative Ua Protein Negative Ua Nitrite Negative Ua Leuko Small Ua Blood Negative Ua Color Not Entered Ua Ketones Trace Ua Clarity Not Entered Ua Specific [place] 1.025 1.003-1.030 Ua PH 5.5 5.0-7.5 Ua Bilirubin Negative Ua Urobilinogen 0.2 E.U./dL 0.0-1.0 Urine Cytology 08/30/2020 [facility] [address] [place] [address] [phone] Clinical History Z85.51 Normal Specimen Adequacy Satisfactory for <SEE NOTE> Normal 2 BodySite Voided - Clean C <SEE NOTE> Normal 3 Gross Description Received in a sp <SEE NOTE> Normal 4 Microscopic Description None. Normal Final Diagnosis NEGATIVE FOR HIG <SEE NOTE> Normal 5 CPTCode 22118 Normal [id number] Z85.51 Normal PDF Report SEE IMAGE 230 Ua Routine 08/30/2020 [facility] REF TO DR ADDRESS ON ORDER FOR (315)- - Ua Glucose Negative Ua Protein Negative Ua Nitrite Negative Ua Leuko Negative Ua Blood Negative Ua Color Not Entered Ua Ketones Negative Ua Clarity Not Entered Ua Specific [place] >=1.030 1.003-1.030 Ua PH 5.5 5.0-7.5 Ua [...] CARCINOMA. Procedures Date Code Description Status 08/30/2020 97103 Cystourethroscopy, Separate Proc edure Completed 08/01/2016 [id number] Colonoscopy Completed Medical Devices Description No Information Available Encounters Type Date Location Provider Dx Diagnosis Office Visit 08/30/2020 10:45a [facility]/ A... Urology Franklin Henry MD Z85.51 Personal [...] 11:00 am - Franklin Henry MD at [facility]/ A.M.P Urology 08/30/2020 - Franklin Henry MD* [...]
--- OUTSIDE RECORDS SUMMARY | 2020-11-06 12:39 | CCD ---
Continuity of Care Document (CCD) Created on: 09/04/2020 Valerie Arriaga External Reference #: [id number] : [id number] Sex: Female Author Author Valerei DELCID MD Organization Unknown Address [address] [place] [address] Phone [phone] Care Team Providers Care Genetics Teacher Name Role Phone Koki Gillette AUTM [phone] Marcelino Dejesus M.D. AUTM [phone] Problems Active Problems Provider Date Malignant tumor [...] Aspirin 81mg Tablets daily Unknown Krill Oil [place]-3 500mg Capsules qd Unknown Vitamin B 6 [...] Injection WSC2,Nursing Schedule/Proced ure Room 08/16/2019 BCG, [place] Strain JW For Waste Inj ection WSC2,Nursing Schedule/Procedure Room 08/09/2019 BCG, [place] Strain - new code eff. 04/18/19 50MG Injection WSC2,Nursing Schedule/Proced ure Room 08/09/2019 BCG, [place] Strain JW For Waste Inj ection WSC2,Nursing Schedule/Procedure Room 08/02/2019 BCG, [place] Strain - new code eff. 04/18/19 50MG Injection WSC2,Nursing Schedule/Proced ure Room 08/02/2019 BCG, [place] Strain DO Not Use After 9 Dos Injection WSC2,Nursing Schedule/Proce dure Room 01/17/2019 BCG, [place] Strain DO Not Use After 9 Dos Injection WSC2,Nursing Schedule/Proce dure Room 01/10/2019 BCG, [place] Strain DO Not Use After 9 Dos Injection WSC2,Nursing Schedule/Proce dure Room 01/03/2019 BCG, [place] Strain DO Not Use After 9 Dos Injection WSC2,Nursing Schedule/Proce dure Room 07/06/2018 BCG, [place] Strain DO Not Use After 9 Dos Injection WSC2,Nursing Schedule/Proce dure Room 06/29/2018 BCG, [place] Strain DO Not Use After 9 Dos Injection WSC2,Nursing Schedule/Proce dure Room 06/22/2018 BCG, [place] Strain DO Not Use After 9 Dos Injection WSC2,Nursing Schedule/Proce dure Room 03/01/2018 BCG, [place] Strain DO Not Use After 9 Dos Injection WSC2,Nursing Schedule/Proce dure Room 02/22/2018 BCG, [place] Strain DO Not Use After 9 Dos Injection WSC2,Nursing Schedule/Proce dure Room 02/15/2018 BCG, [place] Strain DO Not Use After 9 Dos Injection WSC2,Nursing Schedule/Proce dure Room 02/08/2018 BCG, [place] Strain DO Not Use After 9 Dos Injection Minnie Calderon MD BCG, [place] Strain DO Not Use After 9 Dos Injection WSC2,Nursing Schedule/Proce dure Room 01/25/2018 BCG, [place] Strain DO Not Use After 9 Dos [...] Injection WSC2,Nursing Schedule/Proce dure Room 08/28/2014 BCG, [place] Strain DO Not Use After 9 Dos Injection Ash Lawrence MD 014 BCG, [place] Strain DO Not Use After 9 Dos Injection WSC2,Nursing Schedule/Proce dure Room 06/05/2014 BCG, [place] Strain DO Not Use After 9 Dos Injection Rodney Sanchez MD 05/19 BCG, [place] Strain DO Not Use After 9 Dos Injection WSC2,Nursing Schedule/Proce [facility] Room 05/29/2014 BCG, [place] Strain DO Not Use After 9 Dos Injection Jose Pichardo MD 01/2014 BCG, [place] Strain DO Not Use After 9 Dos Injection WSC2,Nursing Schedule/Proce [facility] Room 05/22/2014 BCG, [place] Strain DO Not Use After 9 Dos Injection Kerry Mcclure 05/15/2014 BCG, [place] Strain DO Not Use After 9 Dos Injection Kerry Mcclure 05/08/2014 BCG, [place] Strain DO Not Use After 9 Dos [...] Range Note Urine Cytology 08/30/2020 [facility] [address] [place] [address] [phone] Clinical History Z85.51 Normal Specimen Adequacy Satisfactory for <SEE NOTE> Normal 1 BodySite Voided - Clean C <SEE NOTE> Normal 2 Gross Description Received in a sp <SEE NOTE> Normal 3 Microscopic Description None. Normal Final Diagnosis NEGATIVE FOR HIG <SEE NOTE> Normal 4 CPTCode 70589 Normal [id number] Z85.51 Normal PDF Report SEE IMAGE 230 Ua Routine 08/30/2020 [facility] REF TO DR ADDRESS ON ORDER FOR (315)- - Ua Glucose Negative Ua Protein Negative Ua Nitrite Negative Ua Leuko Negative Ua Blood Negative Ua Color Not Entered Ua Ketones Negative Ua Clarity Not Entered Ua Specific [place] >=1.030 1.003-1.030 Ua PH 5.5 5.0-7.5 Ua Bilirubin Negative Ua Urobilinogen 0.2 E.U./dL 0.0-1.0 1 Satisfactory for evaluation. 2 Voided - Clean Catch 3 Received in a specimen conta iner, labeled with the patients name and , is Cloudy Yellow fluid consistent with urine, measuring approximately 30 ml. 4 NEGATIVE FOR HIGH-GRADE UROT HELIAL CARCINOMA. Procedures Date Code Description Status 08/30/2020 67660 Cystourethroscopy, Separate Proc edure Completed 08/01/2016 [id number] Colonoscopy Completed Medical Devices Description No Information Available Encounters Type Date Location Provider Dx Diagnosis Office Visit 08/30/2020 10:45a [facility]/ A.M[facility] Urology Franklin Henry MD Z85.51 Personal history of malignan t neoplasm of bladder Assessments Date Code Description Provider 08/30/2020 Z85.51 Personal history of malignant ne oplasm of bladder Franklin Henry MD 08/30/2020 Z85.51 Personal history of malignant ne oplasm of bladder Alfa Delcid MD Plan of Treatment Future Appointment(s):* 09/28/2020 11:00 am - Franklin Henry MD at [facility]/ A.M.. Urology 08/30/2020 - Franklin Henry MD* [...]
--- OUTSIDE RECORDS SUMMARY | 2020-11-06 12:39 | CCD | Continuity of Care Document ---
Author Author Valerie HENRY MD Organization Unknown Address [address] [place] [address] Phone [phone] Care Team Providers Care Automobile Body Repairer Helper Name Role Phone Koki Gillette AUTM [phone] Marcelino Dejesus M.D. AUTM [phone] Problems Active Problems Provider Date Malignant tumor [...] SIG Qnty Indications Ordering Provide r Date Keflex 500mg Capsules 1 by mouth twice a day 14caps Franklin Henry MD 11/2019 Vitamin B12 5000mcg Tablets 1 by mouth every day Franklin Henry MD 06/2018 Lexapro 10mg Tablets Unknown Ziac 5-6.25mg Tablets Unknown Fexofenadine HCL 180mg Tablets Unknown Vitamin D3 25mcg Tablets Unknown Aspirin 81mg Tablets daily Unknown Krill Oil [place]-3 500mg Capsules qd Unknown Vitamin B 6 50mg Tablets 2 by mouth every day Unknown Clopidogrel Bisulfate 75mg Tablets Marcelino Dejesus JR, M.D. Simvastatin 40mg Tablets Marcelino Dejesus JR, M.D. Pepcid Unknown Zinc Unknown History Medications Cephalexin 500mg Capsules 1 by mouth following office procedure Frnaklin franks MD 08/30/2020 - 08/31/2020 Medications Administered in Office Medication SIG Qnty Indications Ordering Provider Date BCG, [place] Strain - new code eff. 04/18/19 50MG Injection WSC2,Nursing Schedule/Proced ure Room 08/16/2019 BCG, [place] Strain JW For Waste Inj ection WSC2,Nursing Schedule/Procedure Room 08/09/2019 BCG, [place] Strain - new code eff. 04/18/19 50MG Injection WSC2,Nursing Schedule/Proced ure Room 08/09/2019 BCG, [place] Strain JW For Waste Inj ection WSC2,Nursing Schedule/Procedure Room 08/02/2019 BCG, [place] Strain - new code eff. 04/18/19 50MG Injection WSC2,Nursing Schedule/Proced ure Room 08/02/2019 BCG, [place] Strain DO Not Use After 9 Dos Injection WSC2,Nursing Schedule/Proce dure Room 01/17/2019 BCG, [place] Strain DO Not Use After 9 Dos Injection WSC2,Nursing Schedule/Proce dure Room 01/10/2019 BCG, [place] Strain DO Not Use After 9 Dos Injection WSC2,Nursing Schedule/Proce dure Room 01/03/2019 BCG, [place] Strain DO Not Use After 9 Dos Injection WSC2,Nursing Schedule/Proce dure Room 07/06/2018 BCG, [place] Strain DO Not Use After 9 Dos Injection WSC2,Nursing Schedule/Proce dure Room 06/29/2018 BCG, [place] Strain DO Not Use After 9 Dos Injection WSC2,Nursing Schedule/Proce dure Room 06/22/2018 BCG, [place] Strain DO Not Use After 9 Dos Injection WSC2,Nursing Schedule/Proce dure Room 03/01/2018 BCG, [place] Strain DO Not Use After 9 Dos Injection WSC2,Nursing Schedule/Proce dure Room 02/22/2018 BCG, [place] Strain DO Not Use After 9 Dos Injection WSC2,Nursing Schedule/Proce dure Room 02/15/2018 BCG, [place] Strain DO Not Use After 9 Dos Injection WSC2,Nursing Schedule/Proce dure Room 02/08/2018 BCG, [place] Strain DO Not Use After 9 Dos Injection Minnie Calderon MD BCG, [place] Strain DO Not Use After 9 Dos Injection WSC2,Nursing Schedule/Proce dure Room 01/25/2018 BCG, [place] Strain DO Not Use After 9 Dos Injection WSC2,Nursing Schedule/Proce dure Room 01/18/2018 Chemoclave Kit Injection WSC2,Nursing Schedule/Procedure Room 01/18/2018 BCG, [place] Strain DO Not Use After 9 Dos Injection Lucas Deleon MD 09/11 BCG, [place] Strain DO Not Use After 9 Dos Injection WSC2,Nursing Schedule/Proce dure Room 09/11/2014 BCG, [place] Strain DO Not Use After 9 Dos Injection Jose Pichardo MD 08/19 BCG, [place] Strain DO Not Use After 9 Dos Injection WSC2,Nursing Schedule/Proce dure Room 09/04/2014 BCG, [place] Strain DO Not Use After 9 Dos Injection Arnulfo Larios M.D. 08/28/20 14 BCG, [place] Strain DO Not Use After 9 Dos Injection WSC2,Nursing Schedule/Proce dure Room 08/28/2014 BCG, [place] Strain DO Not Use After 9 Dos Injection Ash Lawrence MD 014 BCG, [place] Strain DO Not Use After 9 Dos Injection WSC2,Nursing Schedule/Proce dure Room 06/05/2014 BCG, [place] Strain DO Not Use After 9 Dos Injection Rodney Sanchez MD 05/19 BCG, [place] Strain DO Not Use After 9 Dos Injection WSC2,Nursing Schedule/Proce dure Room 05/29/2014 BCG, [place] Strain DO Not Use After 9 Dos Injection Jose Pichardo MD 01/2014 BCG, [place] Strain DO Not Use After 9 Dos Injection WSC2,Nursing Schedule/Proce dure Room 05/22/2014 BCG, [place] Strain DO Not Use After 9 Dos Injection Kerry Mcclure 05/15/2014 BCG, [place] Strain DO Not Use After 9 Dos Injection Kerry Mcclure 05/08/2014 BCG, [place] Strain DO Not Use After 9 Dos Injection Kerry Mcclure 05/01/2014 Mitomycin,5MG Antica Agent Injection Franklin Henry MD 03/23/2014 Immunizations Description No Information Available Vital Signs Date Vital Result Comment 09/28/2020 11:07am Height 62 inches 5'2" Weight 175.00 lb Weight 79.380 kg BMI (Body Mass Index) 32.0 kg/m2 BP Systolic 171 mmHg BP Diastolic 72 mmHg Heart Rate 65 /min 08/30/2020 10:53am Height 62 inches 5'2" Weight 175.00 lb Weight 79.380 kg BMI (Body Mass Index) 32.0 kg/m2 BP Systolic 175 mmHg BP Diastolic 78 mmHg Heart Rate 54 /min Results Test Acquired Date Facility Test Result H/L Range Note Laboratory test finding 09/28/2020 [facility] [place] [address] [phone] Urine Culture SPECIMEN DESCRIP <SEE NOTE> 1 230 Ua Routine 09/28/2020 [facility] REF TO ADDRESS ON ORDER FOR (997)- - Ua Glucose Negative Ua Protein Negative Ua Nitrite Negative Ua Leuko Small Ua Blood Negative Ua Color Not Entered Ua Ketones Trace Ua Clarity Not Entered Ua Specific [place] 1.025 1.003-1.030 Ua PH 5.5 5.0-7.5 Ua Bilirubin Negative Ua Urobilinogen 0.2 E.U./dL 0.0-1.0 Urine Cytology 08/30/2020 [facility] [address] [place] [address] [phone] Clinical History Z85.51 Normal Specimen Adequacy Satisfactory for <SEE NOTE> Normal 2 BodySite Voided - Clean C <SEE NOTE> Normal 3 Gross Description Received in a sp <SEE NOTE> Normal 4 Microscopic Description None. Normal Final Diagnosis NEGATIVE FOR HIG <SEE NOTE> Normal 5 CPTCode 16493 Normal [id number] Z85.51 Normal PDF Report SEE IMAGE 230 Ua Routine 08/30/2020 [facility] REF TO DR ADDRESS ON ORDER FOR (692)- - Ua Glucose Negative Ua Protein Negative Ua Nitrite Negative Ua Leuko Negative Ua Blood Negative Ua Color Not Entered Ua Ketones Negative Ua Clarity Not Entered Ua Specific [place] >=1.030 1.003-1.030 Ua PH 5.5 5.0-7.5 Ua [...] CARCINOMA. Procedures Date Code Description Status 08/30/2020 54585 Cystourethroscopy, Separate Proc edure Completed 08/01/2016 11551720 Colonoscopy Completed Medical Devices Description No Information Available Encounters Type Date Location Provider Dx Diagnosis Office Visit 08/30/2020 10:45a [facility]/ [facility] Urology Franklin Henry MD Z85.51 Personal history of malignan t neoplasm of bladder Assessments Date Code Description Provider 08/30/2020 Z85.51 Personal history of malignant ne oplasm of bladder Franklin Henry MD 08/30/2020 Z85.51 Personal history of malignant ne oplasm of bladder Alfa Delcid MD Plan of Treatment Future Appointment(s):* 10/23/2020 12:30 pm - Franklin Henry MD at [facility]/ A[facility] Urology 08/30/2020 - Franklin Henry [...]
--- OUTSIDE RECORDS SUMMARY | 2020-11-06 12:39 | CCD ---
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/2019 - 12:00AM Edgard manuel DO Active Cataract Senile Nuclear 07/27/2019 - 12:00AM Edgard ricardo DO Active Dry Eye Syndrome 07/27/2019 - 12:00AM Edgard soria DO Active Vitreous Disorders Degeneration 07/27/2019 - 12:00AM Kerry Hall DO Active Plan of Treatment Future Appointments Date Time Location Provider 3 - 4 Week Follow-Up 10/17/2020 10:05AM Douglas Blanchard MD [facility] Edgard Hall DO Assessments Includes: Assessments for all patient encounters Findings Encounter Date Vitreous degeneration TRIAGE URGENT with Edgard Hall D O 09/21/2020 Stroke/cerebrovascular accident VISUAL FIELD 30-2 with Joseph Hall DO 08/15/2019 Chorioretinal scar EMERGENCY RM FOLU with Edgard Hall DO 07/27/2019 Dry eye syndrome EMERGENCY RM FOLU with Edgard Hall DO 07/27/2019 Macular puckering EMERGENCY RM FOLU with Edgard Hall DO 07/27/2019 Nuclear senile cataract EMERGENCY RM FOLU with Edgard ayalain DO 07/27/2019 Stroke/cerebrovascular accident EMERGENCY RM FOLU with Joseph Hall DO 07/27/2019 Vitreous degeneration EMERGENCY RM FOLU with Edgard Deepali in DO 07/27/2019 Instructions Instructions not supported for this document typeNo Instructions Recorded Medical Equipment - Implanted Devices Includes: Current and historical DevicesNo Medical Equipment Recorded Medications Includes: Current and historical Medications Current Medications (continue as prescribed) Plavix 75 MG Oral Tablet 07/27/2019 Provider: Diagnosis: Zocor 40 MG Oral Tablet 07/27/2019 Provider: Diagnosis: Lexapro 10 MG Oral Tablet 07/27/2019 Provider: Diagnosis: Ziac 5-6.25 MG Oral Tablet 07/27/2019 Provider: Diagnosis: Fexofenadine HCl 180 MG Oral Tablet 07/27/2019 Prov ider: Diagnosis: Vitamin D3 5000 UNIT Oral Capsule 07/27/2019 Provid er: Diagnosis: Aspir-Low 81 MG Oral Tablet Delayed Release 07/27/2019 Provider: Diagnosis: Vitamin B12 5000 MCG Oral Tablet 07/27/2019 Provide r: Diagnosis: SM Vitamin B6 100 MG Oral Tablet 07/27/2019 Provide r: Diagnosis: Medications Administered Includes: Administered Medications in patient's chartNo Administered Medications Recorded Vital Signs Includes: Vital Signs from 09/21/2019 through 09/21/2020No Vital Signs Recorded For Specified Dates Results Includes: Results from 09/21/2019 through 09/21/2020No Results Recorded For Specified Dates History of Present Illness History of Present Illness not supported for this document typeNo History of Present Illness Recorded Social History Description Last Updated No tobacco use 09/21/2020 Not using alcohol 09/21/2020 Not using drugs 09/21/2020 Previous smoking history 09/21/2020 Smoking status : Former smoker 20 years 09/21/2020 Procedures and Surgical History Surgical History Last Updated Surgical / procedural history Hysterect ju 2001, Severed Levator Muscle (L) 1972 09/21/2020 Medical History Includes: Medical History in patient's chart Description Last Updated No recent change in medical history 09/21/2020 Currently wearing eyeglasses 09/21/2020 History of hyperlipidemia 09/21/2020 History of hypertension 09/21/2020 Reported medical history Bladder Cancer 2011+2013, CV A, Anxiety 09/21/2020 Family History Includes: Family History in patient's chart Description Last Updated Fraternal history of diabetes mellitus 09/21/2020 Fraternal history of heart disease 09/21/2020 Fraternal history of hypertension 09/21/2020 Maternal history of arthritis 09/21/2020 Maternal history of cataract 09/21/2020 Maternal history of hypertension 09/21/2020 Paternal history of family history of cancer 0 Sororal history of arthritis 09/21/2020 Sororal history of strabismus 09/21/2020 Sororal history of thyroid disorder 09/21/2020 Review of Systems Review of Systems not supported for this document typeNo Review of Systems Recorded Mental Status Mental Status not supported for this document type Description Oriented to time, place, and person Anxiety Functional Status Functional Status not supported for this document typeNo Functional Status Recorded Physical Exam Physical Exam not supported for this document typeNo Physical Exam Recorded Immunizations Includes: Immunizations in patient's chartNo Immunizations Recorded Allergies Includes: Active, inactive, and resolved AllergiesNo Known Allergies Encounters Includes: Encounters from 09/21/2019 through 09/21/2020 Encounter Provider Location Date Check-In Time Check-Out Time D iagnosis TRIAGE URGENT Edgard Chamorro MD [facility] 0 2:40PM 3:53PM Vitreous Disorders Degeneration Insurance Includes: Active Insurance Policies Plan Name Member ID Group # Subscriber Relationship Effective Da martha 1 - Medicare Part B [facility] ([facility]) [id number] Valerie Arriaga Self 2 - FOR LIFE (S) [id number] Valerie Arriaga Self Advance Directives Includes: Current Advance DirectivesNo Advance Directives Recorded Health Concerns Includes: Active Health ConcernsNo Active Health Concerns Recorded Goals Includes: Active GoalsNo Active Goals Recorded Interventions Includes: Interventions for active GoalsNo Interventions Recorded Evaluations & Outcomes Includes: Evaluations & Outcomes for active GoalsNo Outcomes Recorded
--- OUTSIDE RECORDS SUMMARY | 2020-11-06 12:39 | CCD | Continuity of Care Document ---
Author Author Valerie HENRY MD Organization Unknown Address [address] [place] [address] Phone [phone] Care Team Providers Care Gang Miner Name Role Phone Koki Gillette AUTM [phone] Marcelino Dejesus M.D. AUTM [phone] Problems Active Problems Provider Date Malignant tumor [...] Aspirin 81mg Tablets daily Unknown Krill Oil [place]-3 500mg Capsules qd Unknown Vitamin B 6 [...] Inj ection WSC2,Nursing Schedule/Procedure Room 08/09/2019 [facility], [place] Strain - new code eff. 04/18/19 50MG Injection WSC2,Nursing Schedule/Proced ure Room 08/09/2019 [facility], [place] Strain JW For Waste Inj ection WSC2,Nursing Schedule/Procedure Room 08/02/2019 [facility], [place] Strain - new code eff. 04/18/19 50MG Injection WSC2,Nursing Schedule/Proced ure Room 08/02/2019 BCG, [place] Strain DO Not Use After 9 Dos Injection WSC2,Nursing Schedule/Proce dure Room 01/17/2019 [facility], [place] Strain DO Not Use After 9 Dos Injection WSC2,Nursing Schedule/Proce dure Room 01/10/2019 BCG, [place] Strain DO Not Use After 9 Dos Injection WSC2,Nursing Schedule/Proce dure Room 01/03/2019 BCG, [place] Strain DO Not Use After 9 Dos Injection WSC2,Nursing Schedule/Proce dure Room 07/06/2018 BCG, [place] Strain DO Not Use After 9 Dos Injection WSC2,Nursing Schedule/Proce dure Room 06/29/2018 BCG, [place] Strain DO Not Use After 9 Dos Injection WSC2,Nursing Schedule/Proce dure Room 06/22/2018 BCG, [place] Strain DO Not Use After 9 Dos Injection WSC2,Nursing Schedule/Proce dure Room 03/01/2018 BCG, [place] Strain DO Not Use After 9 Dos Injection WSC2,Nursing Schedule/Proce dure Room 02/22/2018 BCG, [place] Strain DO Not Use After 9 Dos Injection WSC2,Nursing Schedule/Proce dure Room 02/15/2018 [facility], [place] Strain DO Not Use After 9 Dos [...] Kit Injection WSC2,Nursing Schedule/Procedure Room 01/18/2018 [facility], [place] Strain DO Not Use After 9 Dos Injection Lucas Deleon MD 09/11 [facility], [place] Strain DO Not Use After 9 Dos Injection WSC2,Nursing Schedule/Proce dure Room 09/11/2014 [facility], [place] Strain DO Not Use After 9 Dos Injection Jose Pichardo MD 08/19 BCG, [place] Strain DO Not Use After 9 Dos Injection WSC2,Nursing Schedule/Proce dure Room 09/04/2014 [facility], [place] Strain DO Not Use After 9 Dos Injection Arnulfo Larios M.D. 08/28/20 14 [facility], [place] Strain DO Not Use After 9 Dos Injection WSC2,Nursing Schedule/Proce dure Room 08/28/2014 [facility], [place] Strain DO Not Use After 9 Dos Injection Ash Lawrence MD 014 [facility], [place] Strain DO Not Use After 9 Dos Injection WSC2,Nursing Schedule/Proce [facility] Room 06/05/2014 BCG, [place] Strain DO Not Use After 9 Dos Injection Rodney Sanchez MD 05/19 [facility], [place] Strain DO Not Use After 9 Dos Injection WSC2,Nursing Schedule/Proce dure Room 05/29/2014 BCG, [place] Strain DO Not Use After 9 Dos Injection Jose Pichardo MD 01/2014 BCG, [place] Strain DO Not Use After 9 Dos Injection WSC2,Nursing Schedule/Proce [facility] Room 05/22/2014 [facility], [place] Strain DO Not Use After 9 Dos [...] Date Facility Test Result H/L Range Note 230 Ua Routine 09/28/2020 [facility] REF TO DR ADDRESS ON ORDER FOR (315)- - Ua Glucose Negative Ua Protein Negative Ua Nitrite Negative Ua Leuko Small Ua Blood Negative Ua Color Not Entered Ua Ketones Trace Ua Clarity Not Entered Ua Specific [place] 1.025 1.003-1.030 Ua PH 5.5 5.0-7.5 Ua Bilirubin Negative Ua Urobilinogen 0.2 E.U./dL 0.0-1.0 Urine Cytology 08/30/2020 [facility] [address] [place] [address] [phone] Clinical History Z85.51 Normal Specimen Adequacy Satisfactory for <SEE NOTE> Normal 1 BodySite Voided - Clean C <SEE NOTE> Normal 2 Gross Description Received in a sp <SEE NOTE> Normal 3 Microscopic Description None. Normal Final Diagnosis NEGATIVE FOR HIG <SEE NOTE> Normal 4 CPTCode 53798 Normal [id number] Z85.51 Normal PDF Report SEE IMAGE 230 Ua Routine 08/30/2020 [facility] REF TO DR ADDRESS ON ORDER FOR (315)- - Ua Glucose Negative Ua Protein Negative Ua Nitrite Negative Ua Leuko Negative Ua Blood Negative Ua Color Not Entered Ua Ketones Negative Ua Clarity Not Entered Ua Specific [place] >=1.030 1.003-1.030 Ua PH 5.5 5.0-7.5 Ua Bilirubin Negative Ua Urobilinogen 0.2 E.U./dL 0.0-1.0 1 Satisfactory for evaluation. 2 Voided - Clean Catch 3 Received in a specimen conta iner, labeled with the patients name and , is Cloudy Yellow fluid consistent with urine, measuring approximately 30 ml. 4 NEGATIVE FOR HIGH-GRADE UROT HELIAL CARCINOMA. Procedures Date Code Description Status 08/30/2020 46636 Cystourethroscopy, Separate Proc edure Completed 08/01/2016 [id number] Colonoscopy Completed Medical Devices Description No Information Available Encounters Type Date Location Provider Dx Diagnosis Office Visit 08/30/2020 10:45a [facility] Franklin Henry MD Z85.51 Personal history of malignan t neoplasm of bladder Assessments Date Code Description Provider 08/30/2020 Z85.51 Personal history of malignant ne oplasm of bladder Franklin Henry MD 08/30/2020 Z85.51 Personal history of malignant ne oplasm of bladder Alfa Delcid MD Plan of Treatment Future Appointment(s):* 10/23/2020 12:30 pm - Franklin Henry MD at [facility] 08/30/2020 - Franklin Henry [...]
--- OUTSIDE RECORDS SUMMARY | 2020-11-06 12:40 | CCD | Continuity of Care Document ---
Author Author Valerie HENRY MD Organization Unknown Address [address] [place] [address] Phone [phone] Care Team Providers Care Health Care Marketing Specialist Name Role Phone Koki Gillette AUTM [phone] Marcelino Dejesus M.D. AUTM [phone] Problems Active Problems Provider Date Malignant tumor [...] Aspirin 81mg Tablets daily Unknown Krill Oil [place]-3 500mg Capsules qd Unknown Vitamin B [...] Injection WSC2,Nursing Schedule/Proced ure Room 08/16/2019 BCG, [place] Strain JW For Waste Inj ection WSC2,Nursing Schedule/Procedure Room 08/09/2019 BCG, [place] Strain - new code eff. 04/18/19 50MG Injection WSC2,Nursing Schedule/Proced ure Room 08/09/2019 BCG, [place] Strain JW For Waste Inj ection WSC2,Nursing Schedule/Procedure Room 08/02/2019 BCG, [place] Strain - new code eff. 04/18/19 50MG Injection WSC2,Nursing Schedule/Proced ure Room 08/02/2019 BCG, [place] Strain DO Not Use After 9 Dos Injection WSC2,Nursing Schedule/Proce dure Room 01/17/2019 BCG, [place] Strain DO Not Use After 9 Dos Injection WSC2,Nursing Schedule/Proce dure Room 01/10/2019 BCG, [place] Strain DO Not Use After 9 Dos Injection WSC2,Nursing Schedule/Proce dure Room 01/03/2019 BCG, [place] Strain DO Not Use After 9 Dos Injection WSC2,Nursing Schedule/Proce dure Room 07/06/2018 BCG, [place] Strain DO Not Use After 9 Dos Injection WSC2,Nursing Schedule/Proce dure Room 06/29/2018 BCG, [place] Strain DO Not Use After 9 Dos Injection WSC2,Nursing Schedule/Proce dure Room 06/22/2018 BCG, [place] Strain DO Not Use After 9 Dos Injection WSC2,Nursing Schedule/Proce dure Room 03/01/2018 BCG, [place] Strain DO Not Use After 9 Dos Injection WSC2,Nursing Schedule/Proce dure Room 02/22/2018 BCG, [place] Strain DO Not Use After 9 Dos Injection WSC2,Nursing Schedule/Proce dure Room 02/15/2018 BCG, [place] Strain DO Not Use After 9 Dos Injection WSC2,Nursing Schedule/Proce dure Room 02/08/2018 BCG, [place] Strain DO Not Use After 9 Dos Injection Minnie Calderon MD BCG, [place] Strain DO Not Use After 9 Dos Injection WSC2,Nursing Schedule/Proce dure Room 01/25/2018 BCG, [place] Strain DO Not Use After 9 Dos [...] Injection WSC2,Nursing Schedule/Proce dure Room 08/28/2014 BCG, [place] Strain DO Not Use After 9 Dos Injection Ash Lawrence MD 014 BCG, [place] Strain DO Not Use After 9 Dos Injection WSC2,Nursing Schedule/Proce dure Room 06/05/2014 BCG, [place] Strain DO Not Use After 9 Dos Injection Rodney Sanchez MD 05/19 BCG, [place] Strain DO Not Use After 9 Dos Injection WSC2,Nursing Schedule/Proce [facility] Room 05/29/2014 BCG, [place] Strain DO Not Use After 9 Dos Injection Jose Pichardo MD 01/2014 BCG, [place] Strain DO Not Use After 9 Dos Injection WSC2,Nursing Schedule/Proce [facility] Room 05/22/2014 BCG, [place] Strain DO Not Use After 9 Dos Injection Kerry Mcclure 05/15/2014 BCG, [place] Strain DO Not Use After 9 Dos Injection Kerry Mcclure 05/08/2014 BCG, [place] Strain DO Not Use After 9 Dos [...] Range Note Urine Cytology 08/30/2020 [facility] [address] [place] [address] [phone] Clinical History Z85.51 Normal Specimen Adequacy Satisfactory for <SEE NOTE> Normal 1 BodySite Voided - Clean C <SEE NOTE> Normal 2 Gross Description Received in a sp <SEE NOTE> Normal 3 Microscopic Description None. Normal Final Diagnosis NEGATIVE FOR HIG <SEE NOTE> Normal 4 CPTCode 68695 Normal [id number] Z85.51 Normal PDF Report SEE IMAGE 230 Ua Routine 08/30/2020 [facility] REF TO DR ADDRESS ON ORDER FOR (315)- - Ua Glucose Negative Ua Protein Negative Ua Nitrite Negative Ua Leuko Negative Ua Blood Negative Ua Color Not Entered Ua Ketones Negative Ua Clarity Not Entered Ua Specific [place] >=1.030 1.003-1.030 Ua PH 5.5 5.0-7.5 Ua Bilirubin Negative Ua Urobilinogen 0.2 E.U./dL 0.0-1.0 1 Satisfactory for evaluation. 2 Voided - Clean Catch 3 Received in a specimen conta iner, labeled with the patients name and , is Cloudy Yellow fluid consistent with urine, measuring approximately 30 ml. 4 NEGATIVE FOR HIGH-GRADE UROT HELIAL CARCINOMA. Procedures Date Code Description Status 08/30/2020 88720 Cystourethroscopy, Separate Proc edure Completed 08/01/2016 [id number] Colonoscopy Completed Medical Devices Description No Information Available Encounters Type Date Location Provider Dx Diagnosis Office Visit 08/30/2020 10:45a [facility] Franklin Herny MD Z85.51 Personal history of malignan t neoplasm of bladder Assessments Date Code Description Provider 08/30/2020 Z85.51 Personal history of malignant ne oplasm of bladder Franklin Henry MD Plan of Treatment Future Appointment(s):* 09/28/2020 11:00 am - Franklin Henry MD at [facility]rology 08/30/2020 - Franklin Henry MD* Z85.51 [...]
--- OUTSIDE RECORDS SUMMARY | 2020-11-06 12:40 | CCD | Continuity of Care Document ---
Author Author Valerie CARRINGTON Organization Unknown Address [address] [place] [address] Phone [phone] Care Team Providers Care Sports Team Manager Name Role Phone Marcelino Dejesus M.D. [facility] [phone] Problems Active Problems Provider Date Cerebral artery [...] lb BMI (Body Mass Index) 31.6 kg/m2 [place] Body Weight 110 lb 05/17/2020 2:27pm BP Systolic 120 mmHg BP Diastolic 44 mmHg Heart Rate 61 /min Respiratory Rate 12 /min Height 62 inches 5'2" Weight 173.00 lb BMI (Body Mass Index) 31.6 kg/m2 [place] Body Weight 110 lb Results Description No Information Available Procedures Description No Information Available Medical Devices Description No Information Available Encounters Type Date Location Provider Dx Diagnosis Office Visit 08/24/2020 10:45a Main office - [place] Reinier cameron M.D. I63.9 Cerebral infarction, unspecified Office Visit 05/17/2020 2:15p Main office - [place] Reinier cameron M.D. I63.9 Cerebral infarction, unspecified Assessments Date Code Description Provider 08/24/2020 I63.9 Cerebral infarction, unspecified Reinier Asencio M.D. 05/17/2020 I63.9 Cerebral infarction, unspecified Reinier Asencio M.D. Plan of Treatment Future Appointment(s):* 11/27/2020 2:30 pm - Reinier Asencio M.D. at [facility] office - [place] * 09/19/2020 9:00 am - [facility] at [facility] Functional Status Description No Information Available Mental Status Description No Information Available Referrals Refer to Reason for Referral Status Appt Date Reinier Asencio M.D. Created 0 [address] [place] [address] [phone]
--- OUTSIDE RECORDS SUMMARY | 2020-11-06 12:40 | CCD | Continuity of Care Document ---
Author Author Valerie CARRINGTON Organization Unknown Address [address] [place] [address] Phone [phone] Care Team Providers Care Gear Inspector Name Role Phone Marcelino Dejesus M.D. [facility] [phone] Problems Active Problems Provider Date Cerebral artery [...] lb BMI (Body Mass Index) 31.6 kg/m2 [place] Body Weight 110 lb 05/17/2020 2:27pm BP Systolic 120 mmHg BP Diastolic 44 mmHg Heart Rate 61 /min Respiratory Rate 12 /min Height 62 inches 5'2" Weight 173.00 lb BMI (Body Mass Index) 31.6 kg/m2 [place] Body Weight 110 lb Results Description No Information Available Procedures Date Code Description Status 09/01/2020 69467 MRI Brain W/O Contrast Completed 09/01/2020 32318 MRI Brain W/O Contrast Completed 09/01/2020 01420 Magnetic Resonance Angiography N jose roberto W/O Contrast Materials Completed 09/01/2020 90574 Magnetic Resonance Angiography N jose roberto W/O Contrast Materials Completed 09/01/2020 42456 Magnetic Resonance Angiogtaphy H ead W/O Contrast Material(S) Completed 09/01/2020 74914 Magnetic Resonance Angiogtaphy H ead W/O Contrast Material(S) Completed Medical Devices Description No Information Available Encounters Type Date Location Provider Dx Diagnosis Office Visit 08/24/2020 10:45a Main office - [place] Reinier cameron M.D. I63.9 Cerebral infarction, unspecified Office Visit 05/17/2020 2:15p [facility] [place] Reinier cameron M.D. I63.9 Cerebral infarction, unspecified Assessments Date Code Description Provider 09/01/2020 I63.9 Cerebral infarction, unspecified Miley Sera, JdDKobe 09/01/2020 I63.9 Cerebral infarction, unspecified MRI 09/01/2020 R26.81 Unsteadiness on feet Miley Sera , Kerry.DKobe 09/01/2020 R26.81 Unsteadiness on feet MRI 09/01/2020 H53.123 Transient visual loss, bilateral Miley Sera, M.DKobe 09/01/2020 H53.123 Transient visual loss, bilateral MRI 08/24/2020 I63.9 Cerebral infarction, unspecified Reinier Asencio M.D. 05/17/2020 I63.9 Cerebral infarction, unspecified Reinier Asencio M.D. Plan of Treatment Future Appointment(s):* 11/27/2020 2:30 pm - Reinier Asencio M.D. at [facility] * 09/19/2020 9:00 am - Ans/VS at [facility] Functional Status Description No Information Available Mental Status Description No Information Available Referrals Refer to Reason for Referral Status Appt Reinier Vasquez M.D. Created 0 [address] [place] [address] [phone]
--- OUTSIDE RECORDS SUMMARY | 2020-11-06 12:40 | CCD | Continuity of Care Document ---
Author Author Valerie HENRY MD Organization Unknown Address [address] [place] [address] Phone [phone] Care Team Providers Care Station Chief Name Role Phone Koki Gillette AUTM [phone] Marcelino Dejesus M.D. AUTM [phone] Problems Active Problems Provider Date Malignant tumor [...] Indications Ordering Provide r Date Cephalexin 500mg Capsules 1 by mouth following office procedure Franklin franks MD 08/30/2020 Vitamin B12 5000mcg Tablets 1 by mouth every day Franklin Henry MD 06/2018 Lexapro 10mg Tablets Unknown Ziac 5-6.25mg Tablets Unknown Fexofenadine HCL 180mg Tablets Unknown Vitamin D3 25mcg Tablets Unknown Aspirin 81mg Tablets daily Unknown Krill Oil [place]-3 500mg Capsules qd Unknown Vitamin B 6 50mg Tablets 2 by mouth every day Unknown Clopidogrel Bisulfate 75mg Tablets Marcelino Dejesus JR, M.D. Simvastatin 40mg Tablets Marcelino Dejesus JR, M.D. Pepcid Unknown Zinc Unknown Medications Administered in Office Medication SIG Qnty Indications Ordering Provider Date [facility], [place] Strain - new code eff. 04/18/19 50MG [...] Injection WSC2,Nursing Schedule/Proce dure Room 01/17/2019 [facility], [place] Strain DO Not Use After 9 Dos Injection WSC2,Nursing Schedule/Proce dure Room 01/10/2019 BCG, [place] Strain DO Not Use After 9 Dos Injection WSC2,Nursing Schedule/Proce dure Room 01/03/2019 BCG, [place] Strain DO Not Use After 9 Dos Injection WSC2,Nursing Schedule/Proce dure Room 07/06/2018 BCG, [place] Strain DO Not Use After 9 Dos Injection WSC2,Nursing Schedule/Proce dure Room 06/29/2018 BCG, [place] Strain DO Not Use After 9 Dos Injection WSC2,Nursing Schedule/Proce dure Room 06/22/2018 BCG, [place] Strain DO Not Use After 9 Dos Injection WSC2,Nursing Schedule/Proce dure Room 03/01/2018 BCG, [place] Strain DO Not Use After 9 Dos Injection WSC2,Nursing Schedule/Proce dure Room 02/22/2018 BCG, [place] Strain DO Not Use After 9 Dos Injection WSC2,Nursing Schedule/Proce dure Room 02/15/2018 BCG, [place] Strain DO Not Use After 9 Dos Injection WSC2,Nursing Schedule/Proce dure Room 02/08/2018 BCG, [place] Strain DO Not Use After 9 Dos Injection Minnie Calderon MD BCG, [place] Strain DO Not Use After 9 Dos Injection WSC2,Nursing Schedule/Proce dure Room 01/25/2018 [facility], [place] Strain DO Not Use After 9 Dos Injection WSC2,Nursing Schedule/Proce dure Room 01/18/2018 Chemoclave Kit Injection WSC2,Nursing Schedule/Procedure Room 01/18/2018 [facility], [place] Strain DO Not Use After 9 Dos Injection Lucas Deleon MD 09/11 [facility], [place] Strain DO Not Use After 9 Dos Injection WSC2,Nursing Schedule/Proce dure Room 09/11/2014 [facility], [place] Strain DO Not Use After 9 Dos Injection Jose Pichardo MD 08/19 [facility], [place] Strain DO Not Use After 9 Dos Injection WSC2,Nursing Schedule/Proce dure Room 09/04/2014 [facility], [place] Strain DO Not Use After 9 Dos Injection Arnulfo Larios M.D. 08/28/20 14 [facility], [place] Strain DO Not Use After 9 Dos Injection WSC2,Nursing Schedule/Proce dure Room 08/28/2014 BCG, [place] Strain DO Not Use After 9 Dos Injection Ash Lawrence MD 014 [facility], [place] Strain DO Not Use After 9 Dos Injection WSC2,Nursing Schedule/Proce dure Room 06/05/2014 [facility], [place] Strain DO Not Use After 9 Dos Injection Rodney Sanchez MD 05/19 [facility], [place] Strain DO Not Use After 9 Dos Injection WSC2,Nursing Schedule/Proce dure Room 05/29/2014 BCG, [place] Strain DO Not Use After 9 Dos Injection Jose Pichardo MD 01/2014 BCG, [place] Strain DO Not Use After 9 Dos Injection WSC2,Nursing Schedule/Proce [facility] Room 05/22/2014 [facility], [place] Strain DO Not Use After 9 Dos Injection Kerry Mcclure 05/15/2014 [facility], [place] Strain DO Not Use After 9 Dos [...] Result H/L Range Note Laboratory test finding 08/30/2020 [facility] [address] [place] [address] [phone] Urine Cytology <pending> 230 Ua Routine 08/30/2020 [facility] REF TO DR ADDRESS ON ORDER FOR (173)- - Ua Glucose Negative Ua Protein Negative Ua Nitrite Negative Ua Leuko Negative Ua Blood Negative Ua Color Not Entered Ua Ketones Negative Ua Clarity Not Entered Ua Specific [place] >=1.030 1.003-1.030 Ua PH 5.5 5.0-7.5 Ua Bilirubin Negative Ua Urobilinogen 0.2 E.U./dL 0.0-1.0 Procedures Date Code Description Status 08/30/2020 56255 Cystourethroscopy, Separate Proc edure Completed 08/01/2016 [id number] Colonoscopy Completed Medical Devices Description No Information Available Encounters Type Date Location Provider Dx Diagnosis Office Visit 08/30/2020 10:45a [facility] Urology Franklin Henry MD Z85.51 Personal history of malignan t neoplasm of bladder Assessments Date Code Description Provider 08/30/2020 Z85.51 Personal history of malignant ne oplasm of bladder Franklin Henry MD Plan of Treatment Future Appointment(s):* 09/28/2020 11:00 am - Franklin Henry MD at [facility] Urology 08/30/2020 - Franklin Henry MD* Z85.51 [...]
--- OUTSIDE RECORDS SUMMARY | 2020-11-06 12:40 | CCD ---
Author Author [facility] Organization [facility] Address Unknown Phone Unavailable Care Team Providers Care Fashion Model Name Role Phone Wanda Dejesus MD Unavailable Unavailable Wanda Dejesus MD Unavailable Unavailable Wanda Dejesus MD Unavailable Unavailable Wanda Dejesus MD Unavailable Unavailable Wanda Dejesus MD Unavailable Unavailable Wanda Dejesus MD Unavailable Unavailable Wanda Dejesus MD Unavailable Unavailable Wanda Dejesus MD Unavailable Unavailable Wanda Dejesus MD Unavailable Unavailable Wanda Dejesus MD Unavailable Unavailable Wanda Dejesus MD Unavailable Unavailable Wanda Dejesus MD Unavailable Unavailable Wanda Dejesus MD Unavailable Unavailable Wanda Dejesus MD Unavailable Unavailable Wanda Dejesus MD Unavailable Unavailable Wanda Dejesus MD Unavailable Unavailable Wanda Dejesus MD Unavailable Unavailable Wanda Dejesus MD Unavailable Unavailable Wanda Dejesus MD Unavailable Unavailable Wanda Dejesus MD Unavailable Unavailable Wanda Dejesus MD Unavailable Unavailable Wanda Dejesus MD Unavailable Unavailable Wanda Dejesus MD Unavailable Unavailable Wanda Dejesus MD Unavailable Unavailable Wanda Dejesus MD Unavailable Unavailable Wanda Dejesus MD Unavailable Unavailable Wanda Dejesus MD Unavailable Unavailable Wanda Dejesus MD Unavailable Unavailable Wanda Dejesus MD Unavailable Unavailable Wanda Dejesus MD Unavailable Unavailable Wanda Dejesus MD Unavailable Unavailable Wanda Dejesus MD Unavailable Unavailable Wanda Dejesus MD Unavailable Unavailable Wanda Dejesus MD Unavailable Unavailable OlegWanda MD Unavailable Unavailable OlegWanda MD Unavailable Unavailable OlegWanda MD Unavailable Unavailable OlegWanda MD Unavailable Unavailable OlegWanda MD Unavailable Unavailable OlegWanda MD Unavailable Unavailable OlegWanda MD Unavailable Unavailable RockwellWanda MD Unavailable Unavailable OlegWanda MD Unavailable Unavailable OlegWanda MD Unavailable Unavailable OlegWanda MD Unavailable Unavailable RockwellWanda MD Unavailable Unavailable OlegWanda MD Unavailable Unavailable OlegWanda MD Unavailable Unavailable OlegWanda MD Unavailable Unavailable RockwellWanda MD Unavailable Unavailable OlegWanda MD Unavailable Unavailable RockwellWanda MD Unavailable Unavailable RockwellaWnda MD Unavailable Unavailable RockwellWanda MD Unavailable Unavailable RockwellWanda MD Unavailable Unavailable RockwellWanda MD Unavailable Unavailable OlegWanda MD Unavailable Unavailable RockwellWanda MD Unavailable Unavailable RockwellWanda MD Unavailable Unavailable OlegWanda MD Unavailable Unavailable OlegWanda MD Unavailable Unavailable RockwellWanda MD Unavailable Unavailable RockwellWanda MD Unavailable Unavailable RockwellWanda MD Unavailable Unavailable RockwellWanda MD Unavailable Unavailable OlegWanda MD Unavailable Unavailable RockwellWanda MD Unavailable Unavailable RockwellWanda MD Unavailable Unavailable RockwellWanda MD Unavailable Unavailable RockwellWanda shafer MD Unavailable Unavailable RockwellWanda MD Unavailable Unavailable RockwellWanda MD Unavailable Unavailable RockwellWanda shafer MD Unavailable Unavailable RockwellWanda MD Unavailable Unavailable OlegWanda MD Unavailable Unavailable OlegWanda shafer MD Unavailable Unavailable OlegWanda MD Unavailable Unavailable OlegWanda MD Unavailable Unavailable RockwellWanda MD Unavailable Unavailable OlegWanda MD Unavailable Unavailable OlegWanda MD Unavailable Unavailable OlegWanda MD Unavailable Unavailable RockwellWanda MD Unavailable Unavailable RockwellWanda MD Unavailable Unavailable OlegWanda shafer MD Unavailable Unavailable OlegWanda MD Unavailable Unavailable Kerry BEE MD Unavailable Unavailable Kerry BEE MD Unavailable Unavailable Kerry BEE MD Unavailable Unavailable Kerry BEE MD Unavailable Unavailable Kerry BEE MD Unavailable Unavailable Kerry BEE MD Unavailable Unavailable Kerry BEE MD Unavailable Unavailable Kerry BEE MD Unavailable Unavailable Kerry BEE MD Unavailable Unavailable Kerry BEE MD Unavailable Unavailable Kerry BEE MD Unavailable Unavailable Kerry BEE MD Unavailable Unavailable Kerry BEE MD Unavailable Unavailable Kerry BEE MD Unavailable Unavailable Kerry BEE MD Unavailable Unavailable Kerry BEE MD Unavailable Unavailable Kerry BEE MD Unavailable Unavailable Kerry BEE MD Unavailable Unavailable Kerry BEE MD Unavailable Unavailable Kerry BEE MD Unavailable Unavailable Kerry BEE MD Unavailable Unavailable Kerry BEE MD Unavailable Unavailable Kerry BEE MD Unavailable Unavailable Kerry BEE MD Unavailable Unavailable Kerry BEE MD Unavailable Unavailable Kerry BEE MD Unavailable Unavailable Kerry BEE MD Unavailable Unavailable Kerry BEE MD Unavailable Unavailable Kerry BEE MD Unavailable Unavailable Kerry BEE MD Unavailable Unavailable Kerry BEE MD Unavailable Unavailable Kerry BEE MD Unavailable Unavailable Kerry BEE MD Unavailable Unavailable Kerry BEE MD Unavailable Unavailable Kerry BEE MD Unavailable Unavailable Kerry BEE MD Unavailable Unavailable Kerry BEE MD Unavailable Unavailable Kerry BEE MD Unavailable Unavailable Kerry BEE MD Unavailable Unavailable Kerry BEE MD Unavailable Unavailable Kerry BEE MD Unavailable Unavailable Kerry BEE MD Unavailable Unavailable Kerry BEE MD Unavailable Unavailable Kerry BEE MD Unavailable Unavailable Kerry BEE MD Unavailable Unavailable Kerry BEE MD Unavailable Unavailable Kerry BEE MD Unavailable Unavailable Kerry BEE MD Unavailable Unavailable Kerry BEE MD Unavailable Unavailable Kerry BEE MD Unavailable Unavailable Kerry BEE MD Unavailable Unavailable Kerry BEE MD Unavailable Unavailable Kerry BEE MD Unavailable Unavailable Kerry BEE MD Unavailable Unavailable Kerry BEE MD Unavailable Unavailable Kerry BEE MD Unavailable Unavailable Kerry BEE MD Unavailable Unavailable Kerry BEE MD Unavailable Unavailable Kerry BEE MD Unavailable Unavailable Kerry BEE MD Unavailable Unavailable Kerry BEE MD Unavailable Unavailable Kerry BEE MD Unavailable Unavailable Kerry BEE MD Unavailable Unavailable Kerry BEE MD Unavailable Unavailable Kerry BEE MD Unavailable Unavailable Kerry BEE MD Unavailable Unavailable Kerry BEE MD Unavailable Unavailable Kerry BEE MD Unavailable Unavailable Kerry BEE MD Unavailable Unavailable Kerry BEE MD Unavailable Unavailable Kerry BEE MD Unavailable Unavailable Kerry BEE MD Unavailable Unavailable Kerry BEE MD Unavailable Unavailable Kerry BEE MD Unavailable Unavailable Kerry BEE MD Unavailable Unavailable Kerry BEE MD Unavailable Unavailable Kerry BEE MD Unavailable Unavailable Kerry BEE MD Unavailable Unavailable Kerry BEE MD Unavailable Unavailable Kerry BEE MD Unavailable Unavailable Kerry BEE MD Unavailable Unavailable Kerry BEE MD Unavailable Unavailable Kerry BEE MD Unavailable Unavailable Kerry BEE MD Unavailable Unavailable Kerry BEE MD Unavailable Unavailable Kerry BEE MD Unavailable Unavailable Kerry BEE MD Unavailable Unavailable Nikolas HALL PADMINI DO Unavailable [phone] Nikolas HALL PADMINI DO Unavailable [phone] ALFREDA, A. PADMINI DO Unavailable [phone] Nikolas HALL PADMINI DO Unavailable [phone] Nikolas HALL PADMINI DO Unavailable [phone] Nikolas HALL PADMINI DO Unavailable [phone] Nikolas HALL PADMINI DO Unavailable [phone] Nikolas HALL PADMINI DO Unavailable [phone] Nikolas HALL PADMINI DO Unavailable [phone] Nikolas HALL PADMINI DO Unavailable [phone] Nikolas HALL PADMINI DO Unavailable [phone] Nikolas HALL PADMINI DO Unavailable [phone] Nikolas HALL PADMINI DO Unavailable [phone] Nikolas HALL PADMINI DO Unavailable [phone] Nikolas HALL PADMINI DO Unavailable [phone] Nikolas HALL PADMINI DO Unavailable [phone] Nikolas HALL PADMINI DO Unavailable [phone] Nikolas HALL PADMINI DO Unavailable [phone] Nikolas HALL PADMINI DO Unavailable [phone] Nikolas HALL PADMINI DO Unavailable [phone] Nikolas HALL PADMINI DO Unavailable [phone] Pa Asencio MD Unavailable Unavailable Pa Asencio MD Unavailable Unavailable Pa Asencio MD Unavailable Unavailable Pa Asencio MD Unavailable Unavailable Pa Asencio MD Unavailable Unavailable Pa Asencio MD Unavailable Unavailable Pa Asencio MD Unavailable Unavailable Pa Asencio MD Unavailable Unavailable Pa Asencio MD Unavailable Unavailable Pa Asencio MD Unavailable Unavailable Pa Asencio MD Unavailable Unavailable Pa Asencio MD Unavailable Unavailable Pa Asencio MD Unavailable Unavailable Pa Asencio MD Unavailable Unavailable Pa Asencio MD Unavailable Unavailable Pa Asencio MD Unavailable Unavailable Pa Asencio MD Unavailable Unavailable Pa Asencio MD Unavailable Unavailable Pa Asencio MD Unavailable Unavailable Pa Asencio MD Unavailable Unavailable Pa Asencio MD Unavailable Unavailable Pa Asencio MD Unavailable Unavailable Pa Asencio MD Unavailable Unavailable Pa Asencio MD Unavailable Unavailable Pa Asencio MD Unavailable Unavailable Pa Asencio MD Unavailable Unavailable Pa Asencio MD Unavailable Unavailable Pa Asencio MD Unavailable Unavailable Pa Asencio MD Unavailable Unavailable Pa Asencio MD Unavailable Unavailable Pa Asencio MD Unavailable Unavailable Pa Asencio MD Unavailable Unavailable Pa Asencio MD Unavailable Unavailable Pa Asencio MD Unavailable Unavailable Pa Asencio MD Unavailable Unavailable Pa Asencio MD Unavailable Unavailable Pa Asencio MD Unavailable Unavailable Pa Asencio MD Unavailable Unavailable Pa Asencio MD Unavailable Unavailable Pa Asencio MD Unavailable Unavailable Pa Asencio MD Unavailable Unavailable Pa Asencio MD Unavailable Unavailable Pa Asencio MD Unavailable Unavailable Pa Asencio MD Unavailable Unavailable Pa Asencio MD Unavailable Unavailable Pa Asencio MD Unavailable Unavailable Pa Asencio MD Unavailable Unavailable Pa Asencio MD Unavailable Unavailable Pa Asencio MD Unavailable Unavailable Pa Asencio MD Unavailable Unavailable Pa Asencio MD Unavailable Unavailable Pa Asencio MD Unavailable Unavailable Pa Asencio MD Unavailable Unavailable Elif, O Samah MD Unavailable Unavailable Elif, O Samah MD Unavailable Unavailable Elif, O Samah MD Unavailable Unavailable Elif, O Samah MD Unavailable Unavailable Elif, O Samah MD Unavailable Unavailable Elif, O Samah MD Unavailable Unavailable Elif, O Samah MD Unavailable Unavailable Elif, O Samah MD Unavailable Unavailable Elif, O Samah MD Unavailable Unavailable Elif, O Samah MD Unavailable Unavailable Elif, O Samah MD Unavailable Unavailable Elif, O Samah MD Unavailable Unavailable Elif, O Samah MD Unavailable Unavailable Elif, O Samah MD Unavailable Unavailable Elif, O Samah MD Unavailable Unavailable Elif, O Samah MD Unavailable Unavailable Elif, O Samah MD Unavailable Unavailable Elif, O Samah MD Unavailable Unavailable Elif, O Samah MD Unavailable Unavailable Elif, O Samah MD Unavailable Unavailable Elif, O Samah MD Unavailable Unavailable Elif, O Samah MD Unavailable Unavailable Re-disclosure Warning The records that you are about to access may contain information from federally-assisted alcohol or drug abuse programs. If such information is present, then the following federally mandated warning applies: This information has been disclosed to you from records protected by federal confidentiality rules (42 CFR part 2). The federal rules prohibit you from making any further disclosure of this information unless further disclosure is expressly permitted by the written consent of the person to whom it pertains or as otherwise permitted by 42 CFR part 2. A general authorization for the release of medical or other information is NOT sufficient for this purpose. The Federal rules restrict any use of the information to criminally investigate or prosecute any alcohol or drug abuse patient.The records that you are about to access may contain highly sensitive health information, the redisclosure of which is protected by Article 27-F of the [facility] Public Health law. If you continue you may have access to information: Regarding HIV / AIDS; Provided by facilities licensed or operated by the [facility] Office of Mental Health; or Provided by the [facility] Office for People With Developmental Disabilities. If such information is present, then the following [facility] mandated warning applies: This information has been disclosed to you from confidential records which are protected by state law. State law prohibits you from making any further disclosure of this information without the specific written consent of the person to whom it pertains, or as otherwise permitted by law. Any unauthorized further disclosure in violation of state law may result in a fine or [place] health [facility] sentence or both. A general authorization for the release of medical or other information is NOT sufficient authorization for further disc losure. Allergies and Adverse Reactions Type Description Substance Reaction Status Data Source(s ) Allergy to substance No Known Allergies No known allergies (situation ) JEAN PAUL (Douglas Valencia MD [facility]) Family History Family Member Name Family Member Gender Family Member Status Date o f Status Description Data Source(s) Unknown Unknown Problem [facility] ([facility]) Unknown Male Problem [facility] ([facility]) Unknown Unknown Problem MED[facility] ([facility]) Encounters Encounter Providers Location Date Indications Data Source(s ) Outpatient Attender: LAVELLE Kelly[facility] 10/31/2020 10:00:00 AM EST [facility] ([facility]) [place] [address] 10/26/2020 10:00:00 AM EST MEDENT ([facility] ) Outpatient<td ID="encounterTypeDescripti [email or web address]">[facility]</td><td>Padmini Hall DO</td><td>Douglas Blanchard MD [facility]</td><td>09/21/2020</td><td>2:40PM</td><td>3:53PM</td><td><content ID="[email or web address]">Vitreous Disorders Degeneration</content></td> Attender: PADMINI Chamorro MD [facility] 09/21/2020 02:40:00 PM EST - 09/21/2020 03:53:00 PM EST Vitreous Disorders Degeneration JEAN PAUL (Douglas Valencia MD [facility]) Vitreous Disorders Degeneration Outpatient Attender: LAVELLE eKlly/ [facility] 08/30/2020 09:45:00 AM EST MED[facility] ([facility]) Outpatient Attender: Reinier Asencio MD [facility] 08/24/2020 09:45:00 AM EST MEDENT ([facility] Outpatient Attender: Reinier Asencio MD [facility] 05/17/2020 02:15:00 PM EDT MEDENT ([facility]) Outpatient Attender: Reinier Asencio MD [facility] 02/14/2020 01:15:00 PM EDT MEDENT ([facility]) Immunizations Vaccine Date Status Description Data Source(s) This CVX code allows reporting of a vacc ination when formulation is unknown (for example, when recording a Influenza vaccination when noted on a vaccination card) 06/28/2020 01:09:00 PM EDT completed MEDEN T ([facility]) Medications Medication Brand Name Start Date Product Form Dose Route Admi nistrative Instructions Pharmacy Instructions Status Indications Reaction Description Data Source(s) Cephalexin 500 MG Oral Tablet Cephalexin 10/23/2020 12:00:00 AM EST ORAL completed [facility] ([facility]) Cephalexin 500 MG Oral Capsule CEPHALEXIN 09/19/2020 12:00:00 AM EST capsule 14 TAKE ONE CAPSULE BY MOUTH TWICE A DAY TAKE ONE CAPSULE BY MO UT TWICE A DAY SOLD: 09/20/2020 [facility] Cephalexin 500 MG Oral Capsule [Keflex] Keflex 09/19/2020 12:00:0 0 AM EST ORAL completed [facility] ([facility] Cephalexin 500 MG Oral Capsule Cephalexin 08/30/2020 12:00:00 AM EST ORAL completed [facility] ([facility]) Eszopiclone 2 MG Oral Tablet [Lunesta] Lunesta 08/06/2020 12:00:00 AM EDT ORAL active MED[facility] ([facility]) Eszopiclone 2 MG Oral Tablet ESZOPICLONE 08/06/2020 12:00:00 AM EDT ta blet 30 TAKE ONE TABLET BY MOUTH AT BEDTIME NEEDED FOR INSOMNIA MAXIMUM DAILY DOSE = 1 TABLET TAKE ONE TABLET BY MOUTH AT BEDTIME N EEDED FOR INSOMNIA MAXIMUM DAILY DOSE = 1 TABLET SOLD: 08/06/2020 [facility] Famotidine 20 MG Oral Tablet [Pepcid] Pepcid 04/24/2020 12:00:00 AM EDT ORAL active [facility] ([facility]) Insurance Providers Payer name Policy type / Coverage type Policy ID Covered alliance party ID Covered alliance party's relationship to cordova Policy [place] Plan Information MEDICARE [id number] SP [id number] FOR LIFE [id number] Medicare Part B [facility] Other 0 Se lf 0 FOR LIFE U [id number] Self [id number] MEDICARE A [id number] Self [id number] MEDICARE C [id number] S [id number] [id number] FOR LIFE O [id number] S [id number] NORIDIAN PART B C [id number] S [id number] For Life WPS Medigap Part B [id number] Self [id number] MVP Commercial [id number] Self [id number] Commercial [id number] Family Dependent [id number] DO Not Use (Now #114) Commercial [id number] Family Dependent [id number] WPS For Life Medigap Part B [id number] Family Depende nt [id number] Medicare Natl Govt Servic Medicare Primary [id number] Self [id number] [place] Medigap Part B [id number] Family Dep endent [id number] MVP Healthcare Commercial [id number] Family Dependent [id number] MEDICARE [id number] SP [id number] A MEDICARE C [id number] S [id number] A DO Not Use (Now #114) Commercial [id number] Family Dependent [id number] WPS For Life Medigap Part B [id number] Family Depende nt [id number] Medicare Natl Govt Servic Medicare Primary [id number] Self [id number] FOR LIFE [id number] SP [id number] [facility] Commercial [id number] Family Dependent [id number] WPS For Life Medigap Part B [id number] Family Depende nt [id number] Medicare Natl Govt Servic Medicare Primary [id number] Self [id number] FOR LIFE [id number] MEDICARE [id number] SP [id number] MEDICARE [id number] SP [id number] A FOR LIFE [id number] Healthnet Commercial [id number] Family Dependent [id number] WPS For Life Medigap Part B [id number] Family Depende nt [id number] Medicare Natl Govt Servic Medicare Primary [id number] Self [id number] BS [place] Trad/MX Medigap Part B [id number] Family Depend ent 804 MVP Healthcare Commercial High Deductible Epo Family Depende nt High Deductible Epo Healthnet Commercial Family Dependent WPS For Life Medigap Part B Family Depende nt Medicare Natl Govt Servic Medicare Primary Self MEDICARE [id number] SP [id number] A For Life Medigap Part B Self Medicare Medigap Part B Self Healthnet Federal Service Commercial Family Depend ent [place] [place] [id number] HU2 [id number] HEALTHNET/ AD P [id number] P [id number] PGBA [place] P [id number] P [id number] SELFPAY 5 UNAVAILABLE 1 UNAVAILA BLE 6 [phone] O UNAVAILABLE UNAVAILA BLE [id number] Problems, Conditions, and Diagnoses Code Display Name Description Problem Type Effective Dates Data Source(s) 54901683 Dysuria Dysuria Problem 10/31/2020 12:00:00 AM SUSHMA TONEY ([facility] Surgeries/Procedures Procedure Description Date Indications Data Source(s) CYSTO W/REMOVAL OF LESIONS SMALL 10/23/2020 12:00:00 Alexa TONEY ([facility]) Mammogram 10/03/2020 12:00:00 AM ALOK RUBY ([facility]) Surgical / procedural history Hysterect ju 2000, Severed Levator Muscle (L) 1971 Surgical / procedural history Hysterect ju 2000, Severed Levator Muscle (L) 1972 09/21/2020 12:00:00 AM ALOK REAVES ([facility] Alexa Valencia MD [facility]) TSTG ANS FUNCJ CARDIOVAGAL INNERVAJ PARASYMP 0 12:00:00 AM EST MEDENT ([facility] ) TSTG ANS FUNCJ CARDIOVAGAL INNERVAJ PARASYMP 0 12:00:00 AM EST MEDENT ([facility] ) TESTING AUTONOMIC NERVOUS SYSTEM FUNCTION 09/19/2020 1 2:00:00 AM EST MEDENT ([facility] ) TESTING AUTONOMIC NERVOUS SYSTEM FUNCTION 09/19/2020 1 2:00:00 AM EST MEDENT ([facility] ) Magnetic Resonance Angiogtaphy Head W/O Contrast Material(S) 09/01/2020 12:00:00 AM EST MEDENT ([facility] Magnetic Resonance Angiogtaphy Head W/O Contrast Material(S) 09/01/2020 12:00:00 AM EST MEDENT ([facility] ) Magnetic Resonance Angiography Neck W/O Contrast Materials 09/01/2020 12:00:00 AM EST MEDENT ([facility] ) Magnetic Resonance Angiography Neck W/O Contrast Materials 09/01/2020 12:00:00 AM EST MEDENT ([facility] ) MRI BRAIN BRAIN STEM W/O CONTRAST MATERIAL 09/01/2020 12:00:00 AM EST MEDENT ([facility] ) MRI BRAIN BRAIN STEM W/O CONTRAST MATERIAL 09/01/2020 12:00:00 AM EST MEDENT ([facility], ) CYSTOURETHROSCOPY 08/30/2020 12:00:00 AM EST [facility] ([facility] Results ID Date Data Source [id number] 10/25/2020 08:16:00 AM EST MEDENT ([facility]) Name Value Range Interpretation Code Description Data Bella rce(s) Supporting Document(s) Urea nitrogen [Mass/volume] in Serum or Plasma 19 mg/dL 7-18 MEDENT ([facility]) Glucose [Mass/volume] in Serum or Plasma 117 mg/dL 74-99 MED[facility] ([facility]) 100-125 mg/dL PRE-DIABETES/FASTING >126 mg/dL DIABETES/FASTING Creatinine 0.8 mg/dL 0.6-1.3 MED[facility] ([facility]) Sodium [Moles/volume] in Serum or Plasma 139 meq/L 136-145 MED[facility] ([facility]) Potassium [Moles/volume] in Serum or Plasma 3.9 meq/L 3.5-5.1 MED[facility] ([facility]) Chloride [Moles/volume] in Serum or Plasma 101 meq/L 98-107 [facility] Carbon dioxide, total [Moles/volume] in Serum or Plasma 31 meq/L 21 -32 MED[facility] ([facility]) Alkaline phosphatase isoenzyme [Units/volume] in Serum or Pl asma 80 mg/dL 46-116 MED[facility] ([facility]) Calcium [Mass/volume] in Serum or Plasma 9.0 mg/dL 8.5-10.1 [facility] Total Bilirubin 0.4 mg/dL 0.2-1.0 [facility] Aspartate aminotransferase [Enzymatic activity/volume] in Serum or Plasma 24 U/L 15-37 MEDENT ([facility] ) Albumin [Mass/volume] in Serum or Plasma 3.7 g/dL 3.4-5.0 MED[facility] ([facility]) Proteinase 3 Ab [Units/volume] in Serum 7.1 g/dL 6.4-8.2 MED[facility] ([facility]) Alanine aminotransferase [Enzymatic activity/volume] in Seru m or Plasma 36 U/L 12-78 [facility] A/G Ratio 1.09 CALC 1.00-1.90 [facility]) Glomerular filtration rate/1.73 sq M pre dicted among non-blacks [Volume Rate/Area] in Serum or Plasma by Creatinine-based formula (MDRD) Laboratory test result [facility] Glomerular filtration rate/1.73 sq M pre dicted among blacks [Volume Rate/Area] in Serum or Plasma by Creatinine-based formula (MDRD) Laboratory test result [facility] <content>CHRONIC KIDNEY DISEASE STAGING PER NKF</content>
<content></content>
<content>STAGE I & II GFR >= 60 NORMAL TO MILDLY DECREASED</content>
<content>STAGE III GFR 30-59 MODERATELY DECREASED</content>
<content>STAGE IV GFR 15-29 SEVERELY DECREASED</content>
<content>STAGE V GFR <15 VERY LITTLE GFR LEFT</content>
<content>ESRD GFR <15 ON RESIDENTIAL CONSTRUCTION INSTRUCTOR</content>
<content></content> ID Date Data Source [id number] 10/25/2020 08:16:00 AM EST [facility] Name Value Range Interpretation Code Description Data Bella rce(s) Supporting Document(s) Hemoglobin A1c/Hemoglobin.total in Blood 6.1 % [facility] ([facility]) Lab Result Notes: Pre-Diabetes 5.7 - 6.4 % Diabetes = or > 6.5% Glucose mean value [Mass/volume] in Blood Estimated fr om glycated hemoglobin 128 mg/dL 60-110 [facility] ([facility] ) ID Date Data Source [id number] 10/25/2020 08:16:00 AM EST [facility] ([facility]) Name Value Range Interpretation Code Description Data Bella rce(s) Supporting Document(s) Leukocytes [#/volume] in Blood by Automated count 9.1 x10*3/UL 4.1-10 .9 [facility] ([facility]) Erythrocytes [#/volume] in Blood by Automated count 4.36 x10*6/UL 4.2 0-6.30 [facility] ([facility]) Hemoglobin [Mass/volume] in Blood 13.1 g/dL 12.0-18.0 [facility] ([facility]) Hematocrit [Volume Fraction] of Blood by Automated count 37.3 % 3 7.0-51.0 [facility]) MCV 85.5 fL 80.0-97.0 [facility]) MCH 30.1 pg 26.0-32.0 [facility]) MCHC 35.2 g/dL 31.0-38.0 [facility]) Erythrocyte distribution width [Ratio] by Automated count 12.3 % 11.6-13.7 [facility] ([facility]) Platelets [#/volume] in Blood by Automated count 216 x10*3/UL 140-440 [facility] ([facility]) MPV 8.7 FL 7.8-11.0 [facility] ([facility]) Lymph % 28.6 % 10.0-58.5 [facility] ([facility]) Mid % 6.9 % 1.7-9.3 [facility] ([facility]) Lymph # 2.6 x10*3/UL 0.6-4.1 [facility] ([facility]) Neut % 64.5 % 37.0-92.0 [facility] ([facility]) Mid # 0.7 x10*3/UL 0.1-0.6 [facility] ([facility]) Neut # 5.8 x10*3/UL 2.0-7.8 [facility] ([facility]) ID Date Data Source [id number] 10/25/2020 08:16:00 AM EST [facility] ([facility]) Name Value Range Interpretation Code Description Data Bella rce(s) Supporting Document(s) Hemoglobin A1c/Hemoglobin.total in Blood Laboratory test result [facility] ([facility]) ID Date Data Source [id number] 10/25/2020 08:15:00 AM EST [facility] ([facility]) Name Value Range Interpretation Code Description Data Bella rce(s) Supporting Document(s) Thyroxine (T4) free [Mass/volume] in Serum or Plasma 0.89 ng/dL 0.76- 1.46 [facility] ([facility]) ID Date Data Source [id number] 10/25/2020 08:15:00 AM EST [facility] ([facility]) Name Value Range Interpretation Code Description Data Bella rce(s) Supporting Document(s) Thyrotropin [Units/volume] in Serum or Plasma by Detec tion limit <= 0.05 mIU/L 7.87 uIU/mL 0.36-3.74 [facility] ([facility] ) ID Date Data Source [id number] 10/23/2020 12:54:00 PM EST [facility] ([facility] Name Value Range Interpretation Code Description Data Bella rce(s) Supporting Document(s) Clinical History Laboratory test result [facility] ([facility]) Gross Description Laboratory test result [facility] ([facility]) The specimen is received in formalin fix ative and labeled with patients name and . The site is not indicated on label. On requisition, it is indicated as bladder. It is 2 jones mucosal fragments measuring 0.6 cm in aggregate/greatest dimension. Totally submitted in one cassette. BodySite Laboratory test result [facility] ([facility]) SpecialProcedure Laboratory test result [facility] ([facility]) Final Diagnosis Laboratory test result [facility] ([facility]) LOW-GRADE PAPILLARY UROTHELIAL CARCINOMA , NON-INVASIVE. CPTCode 87541 [facility] ([facility]) [id number] Laboratory test result [facility] ([facility]) PDF Report Laboratory test result [facility] ([facility]) ID Date Data Source [id number] 10/23/2020 12:54:00 PM EST [facility] ([facility]) Name Value Range Interpretation Code Description Data Bella rce(s) Supporting Document(s) Surgical pathology study Laboratory test result [facility] ([facility]) ID Date Data Source [id number] 10/23/2020 12:26:00 PM EST [facility] ([facility]) Name Value Range Interpretation Code Description Data Bella rce(s) Supporting Document(s) Glucose [Presence] in Urine Laboratory test result [facility] ([facility]) Ua Nitrite Laboratory test result [facility] ([facility]) Protein [Presence] in Urine by Test strip Laboratory test result [facility] ([facility]) Blood [Presence] in Urine by Visual Laboratory test result [facility] ([facility]) Ua Leuko Laboratory test result [facility] ([facility]) Color of Urine Laboratory test result [facility] ([facility]) Ketones [Presence] in Urine by Test strip Laboratory test result [facility] ([facility]) Ua Specific [place] 1.025 1.003-1.030 [facility] ([facility]) Clarity of Urine Laboratory test result [facility] ([facility]) pH of Urine by Test strip 5.5 5.0-7.5 [facility] ([facility]) Bilirubin.total [Presence] in Urine by Test strip Laboratory test res ult [facility] ([facility]) Urobilinogen [Mass/volume] in Urine by Test strip 0.2 E.U./dL 0.0-1.0 [facility] ([facility]) ID Date Data Source [id number] 10/09/2020 12:00:00 AM EST [facility] Name Value Range Interpretation Code Description Data Bella rce(s) Supporting Document(s) SARS coronavirus 2 RNA [facility] This lab was ordered by [employer] and rep orted by [employer]. ID Date Data Source [id number] 09/28/2020 01:05:00 PM EST [facility] ([facility]) Name Value Range Interpretation Code Description Data Bella rce(s) Supporting Document(s) Bacteria identified in Urine by Culture Laboratory test result [facility] ([facility]) SPECIMEN DESCRIPTION URINE, COLLE CTION METHOD NOT SPECIFIED CULTURE RESULTS NO GROWTH REPORT STATUS FINAL 09/29/2020 ID Date Data Source [id number] 09/29/2020 03:37:50 PM EST [facility] - CORE SPECIMEN DESCRIPTION URINE, COLLE CTION METHOD NOT SPECIFIEDCULTURE RESULTS NO GROWTHREPORT STATUS FINAL 09/29/2020 Name Value Range Interpretation Code Description Data Bella rce(s) Supporting Document(s) ID Date Data Source [id number] 09/28/2020 11:08:00 AM EST [facility] ([facility]) Name Value Range Interpretation Code Description Data Bella rce(s) Supporting Document(s) Glucose [Presence] in Urine Laboratory test result [facility] ([facility]) Protein [Presence] in Urine by Test strip Laboratory test result [facility] ([facility]) Ua Leuko Laboratory test result [facility] ([facility]) Blood [Presence] in Urine by Visual Laboratory test result [facility] ([facility]) Ua Nitrite Laboratory test result [facility] ([facility]) Color of Urine Laboratory test result [facility] ([facility]) Ketones [Presence] in Urine by Test strip Laboratory test result [facility] ([facility]) Clarity of Urine Laboratory test result [facility] ([facility]) Bilirubin.total [Presence] in Urine by Test strip Laboratory test res ult [facility] ([facility]) pH of Urine by Test strip 5.5 5.0-7.5 [facility] ([facility]) Ua Specific [place] 1.025 1.003-1.030 [facility] ([facility]) Urobilinogen [Mass/volume] in Urine by Test strip 0.2 E.U./dL 0.0-1.0 [facility] ([facility]) ID Date Data Source [id number] 08/30/2020 01:09:00 PM EST [facility] ([facility]) Name Value Range Interpretation Code Description Data Bella rce(s) Supporting Document(s) Clinical History Laboratory test result [facility] ([facility]) Specimen Adequacy Laboratory test result [facility] ([facility]) Satisfactory for evaluation. BodySite Laboratory test result [facility] ([facility]) Voided - Clean Catch Final Diagnosis Laboratory test result [facility] ([facility]) NEGATIVE FOR HIGH-GRADE UROTHELIAL CARCI NOMA. Gross Description Laboratory test result [facility] ([facility]) Received in a specimen container, labele d with the patients name and , is Cloudy Yellow fluid consistent with urine, measuring approximately 30 ml. Microscopic Description Laboratory test result [facility] ([facility]) CPTCode 24920 [facility] ([facility]) [id number] Laboratory test result [facility] ([facility]) PDF Report Laboratory test result [facility] ([facility]) ID Date Data Source [id number] 08/30/2020 01:09:00 PM EST [facility] ([facility]) Name Value Range Interpretation Code Description Data Bella rce(s) Supporting Document(s) Cytology report of Urine Cyto stain Laboratory test result [facility] ([facility]) ID Date Data Source [id number] 08/30/2020 10:50:00 AM EST [facility] ([facility]) Name Value Range Interpretation Code Description Data Bella rce(s) Supporting Document(s) Glucose [Presence] in Urine Laboratory test result [facility] ([facility]) Ua Leuko Laboratory test result [facility] ([facility]) Ua Nitrite Laboratory test result [facility] ([facility]) Protein [Presence] in Urine by Test strip Laboratory test result [facility] ([facility]) Color of Urine Laboratory test result [facility] ([facility]) Blood [Presence] in Urine by Visual Laboratory test result [facility] ([facility]) Ketones [Presence] in Urine by Test strip Laboratory test result [facility] ([facility]) Ua Specific [place] Laboratory test result 1.003-1.030 [facility] ([facility]) Clarity of Urine Laboratory test result [facility] ([facility]) pH of Urine by Test strip 5.5 5.0-7.5 [facility] ([facility]) Urobilinogen [Mass/volume] in Urine by Test strip 0.2 E.U./dL 0.0-1.0 [facility] ([facility]) Bilirubin.total [Presence] in Urine by Test strip Laboratory test res ult [facility] ([facility]) ID Date Data Source [id number] 04/23/2020 08:19:00 AM EDT [facility] ([facility]) Name Value Range Interpretation Code Description Data Bella rce(s) Supporting Document(s) Thyroxine (T4) free [Mass/volume] in Serum or Plasma 0.91 ng/dL 0.76- 1.46 [facility] ([facility]) ID Date Data Source [id number] 04/23/2020 08:18:00 AM EDT [facility] ([facility]) Name Value Range Interpretation Code Description Data Bella rce(s) Supporting Document(s) Thyrotropin [Units/volume] in Serum or Plasma by Detec tion limit <= 0.05 mIU/L 4.30 uIU/mL 0.36-3.74 [facility] ([facility] ) ID Date Data Source [id number] 04/23/2020 08:18:00 AM EDT [facility] ([facility]) Name Value Range Interpretation Code Description Data Bella rce(s) Supporting Document(s) Cholesterol [Mass/volume] in Serum or Plasma 149 mg/dL 131-200 [facility] ([facility]) Cholesterol in HDL [Mass/volume] in Serum or Plasma 59 mg/dL 35-60 [facility] ([facility]) Triglyceride [Mass/volume] in Serum or Plasma 85 mg/dL 30-150 [facility] ([facility]) Cholesterol in LDL [Mass/volume] in Serum or Plasma by calcu lation 73 CALC 50-159 [facility] ([facility]) ID Date Data Source [id number] 04/23/2020 08:18:00 AM EDT [facility] ([facility]) Name Value Range Interpretation Code Description Data Bella rce(s) Supporting Document(s) Glucose [Mass/volume] in Serum or Plasma 115 mg/dL 74-99 [facility] ([facility]) 100-125 mg/dL PRE-DIABETES/FASTING >126 mg/dL DIABETES/FASTING Sodium [Moles/volume] in Serum or Plasma 142 meq/L 136-145 [facility] ([facility]) Urea nitrogen [Mass/volume] in Serum or Plasma 17 mg/dL 7-18 [facility] ([facility]) Potassium [Moles/volume] in Serum or Plasma 4.1 meq/L 3.5-5.1 [facility] ([facility]) Creatinine 0.9 mg/dL 0.6-1.3 [facility] Carbon dioxide, total [Moles/volume] in Serum or Plasma 29 meq/L 21 -32 [facility] ([facility]) Chloride [Moles/volume] in Serum or Plasma 103 meq/L 98-107 [facility] ([facility]) Calcium [Mass/volume] in Serum or Plasma 8.9 mg/dL 8.5-10.1 [facility] ([facility]) Total Bilirubin 0.5 mg/dL 0.2-1.0 [facility] ([facility]) Alkaline phosphatase isoenzyme [Units/volume] in Serum or Pl asma 75 mg/dL 46-116 [facility] ([facility]) Aspartate aminotransferase [Enzymatic activity/volume] in Serum or Plasma 20 U/L 15-37 [facility] ([facility] ) Alanine aminotransferase [Enzymatic activity/volume] in Seru m or Plasma 29 U/L 12-78 [facility] ([facility]) A/G Ratio 1.15 CALC 1.00-1.90 [facility] ([facility]) Albumin [Mass/volume] in Serum or Plasma 3.8 g/dL 3.4-5.0 [facility] ([facility]) Proteinase 3 Ab [Units/volume] in Serum 7.1 g/dL 6.4-8.2 [facility] ([facility]) Glomerular filtration rate/1.73 sq M pre dicted among blacks [Volume Rate/Area] in Serum or Plasma by Creatinine-based formula (MDRD) Laboratory test result [facility] ([facility]) <content>CHRONIC KIDNEY DISEASE STAGING PER NKF</content>
<content></content>
<content>STAGE I & II GFR >= 60 NORMAL TO MILDLY DECREASED</content>
<content>STAGE III GFR 30-59 MODERATELY DECREASED</content>
<content>STAGE IV GFR 15-29 SEVERELY DECREASED</content>
<content>STAGE V GFR <15 VERY LITTLE GFR LEFT</content>
<content>ESRD GFR <15 ON RESIDENTIAL CONSTRUCTION INSTRUCTOR</content>
<content></content> Glomerular filtration rate/1.73 sq M pre dicted among non-blacks [Volume Rate/Area] in Serum or Plasma by Creatinine-based formula (MDRD) Laboratory test result [facility] ([facility] ) ID Date Data Source [id number] 04/23/2020 08:18:00 AM EDT [facility] ([facility]) Name Value Range Interpretation Code Description Data Bella rce(s) Supporting Document(s) Hemoglobin A1c/Hemoglobin.total in Blood 6.1 g/dL 4.8-5.6 [facility] ([facility]) Lab Result Notes: Pre-Diabetes 5.7 - 6.4 % Diabetes = or > 6.5% Glucose mean value [Mass/volume] in Blood Estimated fr om glycated hemoglobin 128 mg/dL 60-110 [facility] ([facility] ) ID Date Data Source [id number] 04/23/2020 08:18:00 AM EDT [facility]) Name Value Range Interpretation Code Description Data Bella rce(s) Supporting Document(s) Leukocytes [#/volume] in Blood by Automated count 8.2 x10*3/UL 4.1-10 .9 [facility] ([facility]) Erythrocytes [#/volume] in Blood by Automated count 4.26 x10*6/UL 4.2 0-6.30 [facility] ([facility]) Hemoglobin [Mass/volume] in Blood 12.7 g/dL 12.0-18.0 [facility] ([facility]) MCV 85.8 fL 80.0-97.0 [facility] Hematocrit [Volume Fraction] of Blood by Automated count 36.6 % 3 7.0-51.0 [facility] ([facility]) MCH 29.9 pg 26.0-32.0 [facility] MCHC 34.9 g/dL 31.0-38.0 [facility] ([facility]) Erythrocyte distribution width [Ratio] by Automated count 12.4 % 11.6-13.7 [facility] ([facility]) Platelets [#/volume] in Blood by Automated count 246 x10*3/UL 140-440 [facility] ([facility]) Mid % 7.6 % 1.7-9.3 [facility] Lymph % 25.4 % 10.0-58.5 [facility] MPV 9.1 FL 7.8-11.0 [facility] ([facility]) Lymph # 2.0 x10*3/UL 0.6-4.1 [facility] ([facility]) Neut # 5.5 x10*3/UL 2.0-7.8 [facility] ([facility]) Neut % 67.0 % 37.0-92.0 [facility] Mid # 0.7 x10*3/UL 0.1-0.6 [facility] ([facility]) ID Date Data Source [id number] 09/13/2019 03:54:00 PM EST [facility] ([facility]) Name Value Range Interpretation Code Description Data Bella rce(s) Supporting Document(s) Surgical pathology study Laboratory test result [facility] ([facility]) 09/16/2019 - 1138 ELECTROPHORESIS DIAGNOSIS Reviewed by Pathologist, see Laboratory section in EMR in [facility] for detailed report. ID# [id number] 09/16/2019 - 1138 Signed Cheyenne Be MD 09/16/2019 1142 ID Date Data Source [id number] 09/13/2019 03:54:00 PM EST [facility] ([facility]) Name Value Range Interpretation Code Description Data Bella rce(s) Supporting Document(s) Surgical pathology study Laboratory test result [facility] ([facility]) 09/16/2019 - 1140 ELECTROPHORESIS DIAGNOSIS Reviewed by Pathologist, see Laboratory section in EMR in [facility] for detailed report. ID# [id number] 09/16/2019 - 1140 Signed Cheyenne Be MD 09/16/2019 1142 ID Date Data Source [id number] 09/13/2019 02:42:00 PM EST [facility] ([facility]) Name Value Range Interpretation Code Description Data Bella rce(s) Supporting Document(s) Antinuclear Antibodies Direct Laboratory test result [facility] ([facility] ) Performed at: [address] [id number] [employer]: Concha Ahmadi MD, Phone: [phone] Performed at: [facility] [id number] [employer]: Kristi Banks MD, Phone: [phone] ID Date Data Source [id number] 09/13/2019 02:42:00 PM EST [facility] ([facility]) Name Value Range Interpretation Code Description Data Bella rce(s) Supporting Document(s) Thiamine [Mass/volume] in Blood 113.0 nmol/L 66.5-200.0 [facility] ([facility]) Specimen Comment: Test(s) [id number] E(Alpha Tocopherol); 969331- Specimen Comment: Vitamin E(Gamma Tocopherol); 257854-Hukmigx B6; 345018- Specimen Comment: Vit. B1, Whole Blood Specimen Comment: was developed and its performance characteristics Specimen Comment: determined by [facility]. It has not been cleared or approved Specimen Comment: by the Food and Drug Administration. Pyridoxine [Mass/volume] in Serum or Plasma 93.9 ug/L 2.0-32.8 [facility] ([facility]) Specimen Comment: Test(s) 406178-Sstfxtv E(Alpha Tocopherol); 340160- Specimen Comment: Vitamin E(Gamma Tocopherol); 614798-Fclczqm B6; 842411- Specimen Comment: Vit. B1, Whole Blood Specimen Comment: was developed and its performance characteristics Specimen Comment: determined by [facility]. It has not been cleared or approved Specimen Comment: by the Food and Drug Administration. ID Date Data Source [id number] 09/13/2019 02:42:00 PM EST [facility] ([facility]) Name Value Range Interpretation Code Description Data Bella rce(s) Supporting Document(s) Vitamin E(Alpha Tocopherol) 9.5 mg/L 9.0-29.0 [facility] ([facility]) Vitamin E(Gamma Tocopherol) 1.4 mg/L 0.5-4.9 [facility] ([facility]) Reference intervals for alpha and gamma- tocopherol determined from National Health and Nutrition Examination Survey, 4112-3633. Individuals with alpha-tocopherol levels less than 5.0 mg/L are considered vitamin E deficient. ID Date Data Source [id number] 09/13/2019 02:42:00 PM EST [facility] ([facility]) Name Value Range Interpretation Code Description Data Bella rce(s) Supporting Document(s) Thyrotropin [Units/volume] in Serum or Plasma 3.860 uIU/ML 0.358-3.74 0 [facility] ([facility]) Thyroxine (T4) free [Mass/volume] in Serum or Plasma 0.94 ng/dL 0.76- 1.46 [facility]) Cobalamin (Vitamin B12) [Mass/volume] in Serum or Plasma Lab oratory test result [id number] [facility] ([facility]) VITAMIN B12 NORMAL RANGE NORMAL 247 - 911 PG/ML INDETERMINATE 211 - 246 PG/ML DEFICIENT LESS THAN 211 PG/ML Rheumatoid factor [Units/volume] in Serum or Plasma Laboratory test result [facility] ([facility]) Folate [Mass/volume] in Serum or Plasma 7.4 ng/mL [facility] ([facility]) FOLATE NORMAL RANGE NORMAL GREATER THAN 5.4 NG/ML INDETERMINATE 3.4-5.4 NG/ML DEFICIENT LESS THAN 3.4 NG/ML ID Date Data Source [id number] 09/13/2019 02:42:00 PM EST [facility] ([facility]) Name Value Range Interpretation Code Description Data Bella rce(s) Supporting Document(s) Joyry-7-Nbooadlo % 5.0 % 2.9-4.9 [facility] ([facility]) Albumin % 55.4 % 55.8-66.1 [facility] ([facility]) Mrrdt-3-Hasqgkvkw % 12.2 % 7.1-11.8 [facility] ([facility]) Roiv-5-Pgvflqoar % 5.1 % 3.2-6.5 [facility] ([facility]) Jvrg-0-Laxmcixak % 6.6 % 4.7-7.2 [facility] ([facility]) Albumin 4.04 GM/DL 3.29-5.55 [facility] ([facility]) Gamma Globulin % 15.7 % 11.1-18.8 [facility] ([facility]) Vayey-8-Xdkwyvenj 0.89 GM/DL 0.42-0.99 [facility] ([facility]) Olypp-8-Wzmledjkq 0.37 GM/DL 0.17-0.41 [facility] ([facility]) Fixp-8-Yywthuebm 0.37 GM/DL 0.19-0.55 [facility] ([facility]) Amxl-5-Lwiivqtel 0.48 GM/DL 0.28-0.60 [facility] ([facility]) Gamma Globulins 1.15 GM/DL 0.65-1.58 [facility] ([facility]) Spep Interpretation Laboratory test result [facility] ([facility]) NO M-SPIKE(S)NOTED. REFER TO REFERENCE RANGES Total Protein 7.3 GM/DL 6.4-8.2 [facility] ([facility], ) ID Date Data Source [id number] 09/13/2019 02:42:00 PM EST [facility] ([facility]) Name Value Range Interpretation Code Description Data Bella rce(s) Supporting Document(s) Erythrocyte sedimentation rate by 2H Westergren method 54 mm/hr 0-3 0 [facility] ([facility] ) Protein Fractions [Interpretation] in Serum or Plasma by Immunofixation Laboratory test result [facility] ([facility], ) NO MONOCLONAL BANDS NOTED. ID Date Data Source [id number] 09/13/2019 02:42:00 PM EST [facility] ([facility], ) Name Value Range Interpretation Code Description Data Bella rce(s) Supporting Document(s) Hemoglobin A1c 6.2 % [facility] ([facility]) REFERENCE RANGES: 4.5-5.6% NORMAL 5.7-6.4% SUGGESTS IMPAIRED GLUCOSE META BOLISM >= 6.5% ABNORMAL Estimated Average Glucose 131 mg/dL 60-110 [facility] Procedure Social History Code Duration Value Status Description Data Source(s ) Smoking 10/30/2020 12:00:00 AM EST Former Cigarette Smok er 1 Pack Daily completed Former Cigarette Smoker 1 Pack Daily [facility] ([facility] Smoking 09/21/2020 04:05:32 PM EST Ex-smoker (finding) complet ed Ex-smoker (finding) CLIO (Douglas Valencia MD [facility]) Vital Signs ID Date Data Source UNK Name Value Range Interpretation Code Description Data Source(s) Body mass index (BMI) [Ratio] 32.9 kg/m2 32.9 k g/m2 [facility] ([facility] Body weight 81.648 kg 81.648 kg [facility] ([facility] Body weight 180.00 [lb_av] 180.00 [lb_av] MEDEN T ([facility]) Body height 62 [in_i] 62 [in_i] [facility] ([facility]) 5'2" Body height 62 [in_i] 62 [in_i] [facility] ([facility]) 5'2" Diastolic blood pressure 66 mm[Hg] 66 mm[Hg] MED[facility] ([facility]) Systolic blood pressure 122 mm[Hg] 122 mm[Hg] M EDENT ([facility]) Body mass index (BMI) [Ratio] 33.6 kg/m2 33.6 k g/m2 [facility] ([facility]) Body weight 183.50 [lb_av] 183.50 [lb_av] MEDEN T ([facility]) Heart rate 59 /min 59 /min [facility] ([facility] Diastolic blood pressure 66 mm[Hg] 66 mm[Hg] [facility] ([facility]) Systolic blood pressure 167 mm[Hg] 167 mm[Hg] EDENT ([facility]) Body mass index (BMI) [Ratio] 32.0 kg/m2 32.0 k g/m2 [facility] ([facility]) Body weight 79.380 kg 79.380 kg [facility] ([facility] Body weight 175.00 [lb_av] 175.00 [lb_av] MEDEN T ([facility]) Body height 62 [in_i] 62 [in_i] [facility] ([facility]) 5'2" Heart rate 65 /min 65 /min [facility] ([facility] [employer] [facility]) Diastolic blood pressure 72 mm[Hg] 72 mm[Hg] [facility] ([facility]) Systolic blood pressure 171 mm[Hg] 171 mm[Hg] EDENT ([facility]) Body mass index (BMI) [Ratio] 32.0 kg/m2 32.0 k g/m2 [facility] ([facility]) Body weight 79.380 kg 79.380 kg [facility] ([facility] Body weight 175.00 [lb_av] 175.00 [lb_av] MEDEN T ([facility]) Body height 62 [in_i] 62 [in_i] [facility] ([facility]) 5'2" Heart rate 54 /min 54 /min [facility] ([facility] [employer] [facility]) Diastolic blood pressure 78 mm[Hg] 78 mm[Hg] [facility] ([facility]) Systolic blood pressure 175 mm[Hg] 175 mm[Hg] M EDENT ([facility]) Body mass index (BMI) [Ratio] 32.0 kg/m2 32.0 k g/m2 [facility] ([facility]) Body weight 79.380 kg 79.380 kg [facility] ([facility] [employer] [facility]) Body weight 175.00 [lb_av] 175.00 [lb_av] MEDEN T ([facility]) Body height 62 [in_i] 62 [in_i] [facility] ([facility]) 5'2" [place] body weight 110 [lb_av] 110 [lb_av] MEDEN T ([facility], ) Body mass index (BMI) [Ratio] 31.6 kg/m2 31.6 k g/m2 [facility] ([facility], ) Body weight 173.00 [lb_av] 173.00 [lb_av] MEDEN T ([facility], ) Body height 62 [in_i] 62 [in_i] MED[facility] ([facility], ) 5'2" Respiratory rate 12 /min 12 /min MED[facility] ( [facility], ) Body mass index (BMI) [Ratio] 32.9 kg/m2 32.9 k g/m2 [facility] ([facility]) Oxygen saturation in Arterial blood by Pulse oximetry 96 % 96 % [facility] ([facility]) Body weight 180.00 [lb_av] 180.00 [lb_av] MEDEN T ([facility]) Body height 62 [in_i] 62 [in_i] [facility] ([facility]) 5'2" Heart rate 63 /min 63 /min [facility] ([facility]) Diastolic blood pressure 56 mm[Hg] 56 mm[Hg] MED[facility] ([facility]) Systolic blood pressure 134 mm[Hg] 134 mm[Hg] M EDENT ([facility]) [place] body weight 110 [lb_av] 110 [lb_av] MEDEN T ([facility], ) Body mass index (BMI) [Ratio] 31.6 kg/m2 31.6 k g/m2 [facility] ([facility], ) Body weight 173.00 [lb_av] 173.00 [lb_av] MEDEN T ([facility], ) Body height 62 [in_i] 62 [in_i] [facility] ([facility], ) 5'2" Respiratory rate 12 /min 12 /min MED[facility] ( [facility], ) Heart rate 61 /min 61 /min [facility] ([facility], ) Diastolic blood pressure 44 mm[Hg] 44 mm[Hg] [facility] Systolic blood pressure 120 mm[Hg] 120 mm[Hg] [facility] Body mass index (BMI) [Ratio] 31.8 kg/m2 31.8 k g/m2 MED[facility] ([facility]) Body weight 174.00 [lb_av] 174.00 [lb_av] MEDEN T ([facility]) Body height 62 [in_i] 62 [in_i] MED[facility] ([facility]) 5'2" Heart rate 68 /min 68 /min MED[facility] ([facility]) Diastolic blood pressure 72 mm[Hg] 72 mm[Hg] [facility] ([facility]) Systolic blood pressure 112 mm[Hg] 112 mm[Hg] [facility] ([facility]) Body mass index (BMI) [Ratio] 31.3 kg/m2 31.3 k g/m2 [facility] ([facility], ) Body weight 171.00 [lb_av] 171.00 [lb_av] MEDEN T ([facility]) Body height 62 [in_i] 62 [in_i] [facility] ([facility], ) 5'2" Respiratory rate 12 /min 12 /min [facility] ( [facility], ) Heart rate 54 /min 54 /min [facility] Diastolic blood pressure 54 mm[Hg] 54 mm[Hg] [facility] ([facility], ) Systolic blood pressure 133 mm[Hg] 133 mm[Hg] [facility] ([facility], ) Body mass index (BMI) [Ratio] 33.3 kg/m2 33.3 k g/m2 [facility] ([facility]) Body weight 182.00 [lb_av] 182.00 [lb_av] MEDEN T ([facility]) Body height 62 [in_i] 62 [in_i] [facility] ([facility]) 5'2" Heart rate 70 /min 70 /min [facility] ([facility]) Diastolic blood pressure 68 mm[Hg] 68 mm[Hg] [facility] ([facility]) Systolic blood pressure 126 mm[Hg] 126 mm[Hg] Kerry RUBY ([facility])
[2020-11-06 13:43] LABS: BASO % 0.3 % (0.0-1.0); EOS # 0.3 10^3/uL (0.0-0.5); EOS % 2.8 % (0.0-3.0); HEMATOCRIT 40.3 % (36.0-47.0); HEMOGLOBIN 13.5 g/dl (12.0-15.5); LYMPH # 2.1 10^3/uL (1.5-5.0); LYMPH % 18.5 % (24.0-44.0); MEAN CORPUSCULAR HEMOGLOBIN 29.5 pg (27.0-33.0); MEAN CORPUSCULAR HGB CONC 33.5 g/dl (32.0-36.5); MEAN CORPUSCULAR VOLUME 88.2 fl (80.0-96.0); MONO % 8.3 % (0.0-5.0); NEUTROPHILS # 8.1 10^3/uL (1.5-8.5); NEUTROPHILS % 69.8 % (36.0-66.0); PLATELET COUNT, AUTOMATED 274 10^3/uL (150-450); RED BLOOD COUNT 4.57 10^6/uL (4.00-5.40); WHITE BLOOD COUNT 11.5 10^3/uL (4.0-10.0)
[2020-11-06] MEDS ORDERED: NS 500 ML IV ONE (13:45)
[2020-11-06] MEDS ORDERED: LIDOCAINE 2% 5ML JELLY UROJET TOP ONE (13:45)
[2020-11-06] MEDS ORDERED: ASPI81CH33 PO (13:55)
[2020-11-06] MEDS ORDERED: PEPC10TA6 PO (13:56)
[2020-11-06] MEDS ORDERED: ZINC1TAB2 PO (13:57)
[2020-11-06] MEDS ORDERED: MACR100C43 PO (15:11)
[2020-11-06 15:20] VITALS: BP 172/73
== END 2020-11-06 15:35 | disposition home or self-care (01) ==
LOC: M ED 12:28
DX: N30.91 Cystitis, unspecified with hematuria (principal); R33.9 Retention of urine, unspecified; Z79.899 Other long term (current) drug therapy; Z79.82 Long term (current) use of aspirin; Z79.01 Long term (current) use of anticoagulants; Z85.51 Personal history of malignant neoplasm of bladder; Z92.21 Personal history of antineoplastic chemotherapy

== ENCOUNTER → 2021-05-23 | Outpatient (REF) | payer MEDICARE, OTHER ==
[~2021-05-23] MED LIST changes: +ASPI81CH33 PO; +MACR100C43 PO; +PEPC10TA6 PO; +ZINC1TAB2 PO
[2021-05-23 17:47] LABS: INR 0.98; PROTHROMBIN TIME 13.3 SECONDS (12.7-14.5)
[2021-05-23 17:48] LABS: PARTIAL THROMBOPLASTIN TIME 31.8 SECONDS (25.9-37.0)
[2021-05-23 23:17] LABS: AMORPHOUS SEDIMENT SMALL (NEGATIVE); APPEARANCE, URINE TURBID (CLEAR); BACTERIA, URINE AUTO NEGATIVE (NEGATIVE); BILIRUBIN, URINE AUTO NEGATIVE (NEGATIVE); BLOOD, URINE BLOOD NEGATIVE (NEGATIVE); COLOR, URINE AMBER (YELLOW); GLUCOSE, URINE (UA) AUTO NEGATIVE (NEGATIVE); KETONE, URINE AUTO NEGATIVE (NEGATIVE); LEUKOCYTE ESTERASE, URINE AUTO 2+ (NEGATIVE); NITRITE, URINE AUTO NEGATIVE (NEGATIVE); PROTEIN, URINE AUTO NEGATIVE (NEGATIVE); RBC, URINE AUTO 2 /HPF (0-3); SPECIFIC GRAVITY URINE AUTO 1.023 (1.002-1.035); SQUAMOUS EPITHELIAL CELL UR AU 0 /HPF (0-6); UROBILINOGEN, URINE AUTO 0.2 mg/dL (0.0-2.0); WBC, URINE AUTO 5 /HPF (0-3)
== END ==
LOC: M LAB REF 16:40
PROVIDERS: ATTEND Internal Medicine
DX: Z01.810 Encounter for preprocedural cardiovascular examination (principal); Z79.01 Long term (current) use of anticoagulants

== ENCOUNTER → 2021-10-23 | Outpatient (REF) | payer MEDICARE, OTHER | LOC: EEVIPCON 16:53 → M LAB REF 16:53 | PROVIDERS: ATTEND Nurse Practitioner Adult Health | DX: N39.0 Urinary tract infection, site not specified (principal) ==

== ENCOUNTER → 2021-11-11 | Outpatient (CLI) | payer MEDICARE, OTHER | LOC: M WHC 15:16 | PROVIDERS: ATTEND Nurse Practitioner Adult Health | DX: Z12.31 Encounter for screening mammogram for malignant neoplasm of breast (principal) ==

== ENCOUNTER → 2022-04-23 | Outpatient (REF) | payer MEDICARE, OTHER | LOC: M LAB REF 13:27 | PROVIDERS: ATTEND Physician Assistant | DX: N39.0 Urinary tract infection, site not specified (principal) ==

== ENCOUNTER → 2022-10-31 | Outpatient (REF) | payer MEDICARE, OTHER | LOC: M LAB REF 16:11 | PROVIDERS: ATTEND Internal Medicine | DX: R82.998 Other abnormal findings in urine (principal) ==

== ENCOUNTER → 2022-11-07 | Outpatient (CLI) | payer MEDICARE, OTHER | LOC: M WHC 12:35 | PROVIDERS: ATTEND Internal Medicine | DX: M81.0 Age-related osteoporosis without current pathological fracture (principal) ==

== ENCOUNTER → 2022-12-25 | Outpatient (CLI) | payer MEDICARE, OTHER | LOC: M WHC 12:41 | PROVIDERS: ATTEND Nurse Practitioner Adult Health | DX: Z12.31 Encounter for screening mammogram for malignant neoplasm of breast (principal) ==

== ENCOUNTER → 2022-12-29 | Outpatient (CLI) | payer MEDICARE, OTHER ==
[2022-12-29 15:29] LABS: BLOOD UREA NITROGEN 18 MG/DL (9-23); CREATININE FOR GFR 0.69 MG/DL (0.55-1.30); GLOMERULAR FILTRATION RATE > 60.0 (>39)
== END ==
LOC: M WUC 09:07
PROVIDERS: ATTEND Urology
DX: R82.998 Other abnormal findings in urine (principal); Z85.51 Personal history of malignant neoplasm of bladder

== ENCOUNTER → 2023-03-02 | Outpatient (REF) | payer MEDICARE, OTHER ==
[2023-03-02 17:49] LABS: INR 0.87
[2023-03-02 17:50] LABS: PARTIAL THROMBOPLASTIN TIME 29.5 SECONDS (24.8-34.2)
[2023-03-02 18:06] LABS: APPEARANCE, URINE HAZY (CLEAR); BACTERIA, URINE AUTO NEGATIVE (NEGATIVE); BILIRUBIN, URINE AUTO NEGATIVE (NEGATIVE); BLOOD, URINE BLOOD NEGATIVE (NEGATIVE); COLOR, URINE YELLOW (YELLOW); GLUCOSE, URINE (UA) AUTO NEGATIVE (NEGATIVE); KETONE, URINE AUTO TRACE mg/dL (NEGATIVE); LEUKOCYTE ESTERASE, URINE AUTO NEGATIVE (NEGATIVE); NITRITE, URINE AUTO NEGATIVE (NEGATIVE); PROTEIN, URINE AUTO NEGATIVE (NEGATIVE); RBC, URINE AUTO 0 /HPF (0-3); SPECIFIC GRAVITY URINE AUTO 1.023 (1.002-1.035); SQUAMOUS EPITHELIAL CELL UR AU 2 /HPF (0-6); UROBILINOGEN, URINE AUTO 0.2 mg/dL (0.0-2.0); WBC, URINE AUTO 0 /HPF (0-3)
== END ==
LOC: M LAB REF 16:55
PROVIDERS: ATTEND Internal Medicine
DX: Z01.810 Encounter for preprocedural cardiovascular examination (principal)

== ENCOUNTER → 2023-05-24 | Outpatient (REF) | payer MEDICARE, OTHER | LOC: M LAB REF 17:43 | PROVIDERS: ATTEND Student in an Organized Health Care Education/Training Program | DX: R30.0 Dysuria (principal) ==

== ENCOUNTER → 2023-12-29 | Outpatient (CLI) | payer MEDICARE, OTHER | LOC: M WHC 13:27 | PROVIDERS: ATTEND Nurse Practitioner Adult Health | DX: Z12.31 Encounter for screening mammogram for malignant neoplasm of breast (principal); R92.323 Mammographic fibroglandular density, bilateral breasts; R92.8 Other abnormal and inconclusive findings on diagnostic imaging of breast ==

== ENCOUNTER → 2024-01-13 | Outpatient (CLI) | payer MEDICARE, OTHER | LOC: M WHC 09:09 | PROVIDERS: ATTEND Nurse Practitioner Adult Health | DX: R92.322 Mammographic fibroglandular density, left breast (principal) | CPT/HCPCS: 77065; G0279 ==

== ENCOUNTER → 2024-06-15 | Outpatient (CLI) | payer MEDICARE, OTHER ==
[~2024-06-15] MED LIST changes: +ISOVUE-370 76% 100ML VIAL As Ordered ONE
== END ==
LOC: M RAD 12:26
PROVIDERS: ATTEND Urology
DX: D41.4 Neoplasm of uncertain behavior of bladder (principal); K57.30 Diverticulosis of large intestine without perforation or abscess without bleeding
CPT/HCPCS: 74178; Q9967

== ENCOUNTER → 2024-07-22 | Outpatient (CLI) | payer MEDICARE, OTHER ==
[~2024-07-22] MED LIST changes: -ISOVUE-370 76% 100ML VIAL As Ordered ONE
== END ==
LOC: M PLARAD 09:20
PROVIDERS: ATTEND Internal Medicine
DX: K86.2 Cyst of pancreas (principal)

== ENCOUNTER 2024-08-12 12:11 | Emergency (ER) | payer MEDICARE, OTHER ==
[~2024-08-12] VITALS: Ht 157.5 cm; Wt 77.0 kg
[2024-08-12] MEDS ORDERED: METF500T13 (12:39)
[2024-08-12] MEDS ORDERED: EZET10TA21 (12:39)
[2024-08-12] MEDS: ACETAMINOPHEN *IV* 1,000 MG in IV 1 EA IV ONE (14:58)
[2024-08-12 17:05] VITALS: BP 222/84
[2024-08-12] MEDS: hydrALAZINE 20MG/ML 1ML VIAL IV ONE (17:05)
[2024-08-12 17:12] LABS: APPEARANCE, URINE CLEAR (CLEAR); BACTERIA, URINE AUTO NEGATIVE (NEGATIVE); BILIRUBIN, URINE AUTO NEGATIVE (NEGATIVE); BLOOD, URINE BLOOD NEGATIVE (NEGATIVE); COLOR, URINE YELLOW (YELLOW); GLUCOSE, URINE (UA) AUTO NEGATIVE (NEGATIVE); KETONE, URINE AUTO TRACE mg/dL (NEGATIVE); LEUKOCYTE ESTERASE, URINE AUTO NEGATIVE (NEGATIVE); MUCUS, URINE SMALL (NEGATIVE); NITRITE, URINE AUTO NEGATIVE (NEGATIVE); PROTEIN, URINE AUTO 1+ mg/dL (NEGATIVE); RBC, URINE AUTO 1 /HPF (0-3); SPECIFIC GRAVITY URINE AUTO 1.017 (1.002-1.035); SQUAMOUS EPITHELIAL CELL UR AU 1 /HPF (0-6); UROBILINOGEN, URINE AUTO 0.2 mg/dL (0.0-2.0); WBC, URINE AUTO 2 /HPF (0-3)
[2024-08-12 17:32] LABS: BASO % 0.2 % (0.0-1.0); EOS % 0.1 % (0.0-3.0); HEMATOCRIT 39.3 % (36.0-47.0); HEMOGLOBIN 13.4 g/dl (12.0-15.5); LYMPH # 2.9 10^3/uL (1.5-5.0); LYMPH % 15.3 % (24.0-44.0); MEAN CORPUSCULAR HEMOGLOBIN 29.1 pg (27.0-33.0); MEAN CORPUSCULAR HGB CONC 34.1 g/dl (32.0-36.5); MEAN CORPUSCULAR VOLUME 85.4 fl (80.0-96.0); MONO # 1.2 10^3/uL (0.0-0.8); MONO % 6.4 % (2.0-8.0); NEUTROPHILS # 14.7 10^3/uL (1.5-8.5); PLATELET COUNT, AUTOMATED 344 10^3/uL (150-450)
[2024-08-12 17:50] LABS: BLOOD UREA NITROGEN 24 MG/DL (9-23); CALCIUM LEVEL 9.8 MG/DL (8.3-10.6); CARBON DIOXIDE LEVEL 28 MMOL/L (20-31); CHLORIDE LEVEL 96 MMOL/L (98-107); GLOMERULAR FILTRATION RATE > 60.0 (>39); GLUCOSE, FASTING 135 MG/DL (74-106); POTASSIUM SERUM 4.1 MMOL/L (3.5-5.1); SODIUM LEVEL 131 MMOL/L (136-145)
[2024-08-12 19:03] LABS: PROCALCITONIN <0.04 ng/ml
[2024-08-12] MEDS: MORPHINE 2 MG/ML 1ML VIAL IV ONE (19:12)
[2024-08-12] MEDS ORDERED: TRAM50TA2 PO (20:39)
[2024-08-12 20:48] VITALS: BP 171/70; TEMP 98.5; O2SAT 97
== END 2024-08-12 20:49 | disposition home or self-care (01) ==
LOC: EDBD 12:11 → M ED 12:11
DX: M54.41 Lumbago with sciatica, right side (principal); M51.26 Other intervertebral disc displacement, lumbar region; M48.061 Spinal stenosis, lumbar region without neurogenic claudication; Z86.79 Personal history of other diseases of the circulatory system; Z79.82 Long term (current) use of aspirin; Z79.899 Other long term (current) drug therapy; Z79.4 Long term (current) use of insulin
CPT/HCPCS: 72148; 80048; 81001; 84145; 85025; 93005; 96374; 96375; 99284; J0131; J0360

== ENCOUNTER → 2024-11-22 | Outpatient (REF) | payer MEDICARE, OTHER ==
[~2024-11-22] MED LIST changes: +EZET10TA21; +METF500T13; +TRAM50TA2 PO
== END ==
LOC: M LAB REF 16:19
PROVIDERS: ATTEND Student in an Organized Health Care Education/Training Program
DX: R30.0 Dysuria (principal)

== ENCOUNTER → 2024-12-05 | Outpatient (REF) | payer MEDICARE, OTHER ==
[2024-12-05 12:36] LABS: ATYPICAL LYMPH 1 % (0-5); EOSINOPHILS 7 % (0-3); LYMPHOCYTES 26 % (16-44); MONOCYTES 6 % (0-5); NEUTROPHILS 60 % (28-66); PLATELET ESTIMATE NORMAL (NORMAL)
== END ==
LOC: M LAB REF 11:55
PROVIDERS: ATTEND Internal Medicine
DX: D72.9 Disorder of white blood cells, unspecified (principal)

== ENCOUNTER → 2025-06-28 | Outpatient (REF) | payer MEDICARE, OTHER ==
[~2025-06-28] MED LIST changes: -EZET10TA21; +EZET10TA57
== END ==
LOC: M SFHCDERM 13:05
PROVIDERS: ATTEND Nurse Practitioner Family
DX: L82.0 Inflamed seborrheic keratosis (principal)

== ENCOUNTER 2025-07-20 02:49 | Emergency (ER) | payer MEDICARE, OTHER ==
[~2025-07-20] VITALS: Ht 157.5 cm; Wt 70.0 kg
[2025-07-20 04:42] LABS: BASO # 0.1 10^3/uL (0.0-0.2); BASO % 0.5 % (0.0-1.0); EOS # 0.4 10^3/uL (0.0-0.5); EOS % 3.3 % (0.0-3.0); LYMPH # 3.5 10^3/uL (1.5-5.0); LYMPH % 29.1 % (24.0-44.0); MONO # 1.1 10^3/uL (0.0-0.8); MONO % 9.0 % (2.0-8.0); NEUTROPHILS # 7.0 10^3/uL (1.5-8.5); NEUTROPHILS % 57.8 % (36.0-66.0); PLATELET COUNT, AUTOMATED 302 10^3/uL (150-450)
[2025-07-20 05:00] LABS: CK-MB VALUE MASS 2.9 NG/ML (<3.6)
[2025-07-20 05:01] LABS: CALCIUM LEVEL 9.0 MG/DL (8.3-10.6); CARBON DIOXIDE LEVEL 26.0 MMOL/L (20-31); CHLORIDE LEVEL 101.0 MMOL/L (98-107); CREATININE FOR GFR 0.76 MG/DL (0.55-1.30); GLOMERULAR FILTRATION RATE 81.7 (>39); MAGNESIUM LEVEL 1.9 MG/DL (1.8-2.4); POTASSIUM SERUM 3.8 MMOL/L (3.5-5.1); SODIUM LEVEL 137.0 MMOL/L (136-145)
[2025-07-20 05:07] LABS: CPK CREATINE PHOSPHOKINASE 133.0 U/L (34-145); MB/CK RELATIVE INDEX 2.18 (< OR =4)
[2025-07-20 05:40] LABS: CK-MB VALUE MASS 2.9 NG/ML (<3.6)
[2025-07-20 05:41] LABS: CPK CREATINE PHOSPHOKINASE 123.0 U/L (34-145); MB/CK RELATIVE INDEX 2.35 (< OR =4)
[2025-07-20] MEDS: ASPIRIN 81 MG CHEWABLE TABLET PO ONE (08:18)
[2025-07-20] MEDS: HEPARIN DRIP 25,000 UNITS in IV 1 EA IV SCH (08:19)
[2025-07-20] MEDS: CLOPIDOGREL 75 MG TAB PO ONE (08:19)
[2025-07-20] MEDS: HEPARIN SOD 5000 UNITS/ML 1 ML VIAL/SYRINGE IV ONE (08:19)
[2025-07-20 09:20] VITALS: BP 146/82; TEMP 97.4; O2SAT 99
== END 2025-07-20 09:21 | disposition short-term general hospital (02) ==
LOC: M ED 02:49
DX: I21.4 Non-ST elevation (NSTEMI) myocardial infarction (principal); I10 Essential (primary) hypertension; E78.5 Hyperlipidemia, unspecified; E55.9 Vitamin D deficiency, unspecified; Z86.79 Personal history of other diseases of the circulatory system; Z79.82 Long term (current) use of aspirin; Z79.4 Long term (current) use of insulin; Z79.899 Other long term (current) drug therapy

== ENCOUNTER 2025-09-06 22:08 | Observation (INO) | payer MEDICARE, OTHER ==
[~2025-09-06] VITALS: Ht 157.5 cm; Wt 80.1 kg
[~2025-09-06 22:08] MED LIST changes: -EZET10TA57; +EZET10TA57 PO; -METF500T13; +METF500T13 PO
[2025-09-06 22:39] LABS: BASO # 0.1 10^3/uL (0.0-0.2); BASO % 0.5 % (0.0-1.0); EOS # 0.4 10^3/uL (0.0-0.5); EOS % 3.3 % (0.0-3.0); LYMPH # 3.6 10^3/uL (1.5-5.0); LYMPH % 30.2 % (24.0-44.0); MONO # 1.1 10^3/uL (0.0-0.8); MONO % 9.0 % (2.0-8.0); NEUTROPHILS # 6.6 10^3/uL (1.5-8.5); NEUTROPHILS % 56.7 % (36.0-66.0); PLATELET COUNT, AUTOMATED 286 10^3/uL (150-450)
[2025-09-06] MEDS: METOPROLOL 5 MG/5 ML VIAL IV SCH (22:47)
[2025-09-06] MEDS: APIXABAN 5 MG TAB PO ONE (22:52)
[2025-09-06] MEDS: METOPROLOL TART 50 MG TAB PO ONE (22:53)
[2025-09-06 23:01] LABS: INR 0.85
[2025-09-06 23:10] LABS: CALCIUM LEVEL 9.4 MG/DL (8.3-10.6); CARBON DIOXIDE LEVEL 29.0 MMOL/L (20-31); CHLORIDE LEVEL 98.0 MMOL/L (98-107); CK-MB VALUE MASS 3.5 NG/ML (<3.6); CREATININE FOR GFR 0.82 MG/DL (0.55-1.30); GLOMERULAR FILTRATION RATE 74.6 (>39); MAGNESIUM LEVEL 1.8 MG/DL (1.8-2.4); POTASSIUM SERUM 3.8 MMOL/L (3.5-5.1); SODIUM LEVEL 139.0 MMOL/L (136-145)
[2025-09-06 23:14] LABS: CPK CREATINE PHOSPHOKINASE 139.0 U/L (34-145); MB/CK RELATIVE INDEX 2.51 (< OR =4)
[2025-09-06] MEDS ORDERED: ISOVUE-370 76% 100 ML VIAL As Ordered ONE (23:22)
[2025-09-07] MEDS: DIGOXIN INJ 0.5 MG/2 ML AMP IV ONE (00:18)
[2025-09-07] MEDS ORDERED: DEXTROSE 50% 50 ML SYRINGE IV PRN (04:05)
[2025-09-07] MEDS ORDERED: GLUCOSE 4 GM CHEW PO PRN (04:05)
[2025-09-07] MEDS ORDERED: GLUCAGON INJ 1 MG VIAL SC PRN (04:05)
[2025-09-07 04:42] LABS: FREE T4 0.96 NG/DL (0.89-1.76)
[2025-09-07] MEDS: DIGOXIN 0.25 MG TAB PO SCH (06:45)
[2025-09-07] MEDS: INSULIN LISPRO (NovoLOG) PER UNIT SC SCH ×2 (07:30→21:00)
[2025-09-07] MEDS ORDERED: VITA500065 PO (08:07)
[2025-09-07] MEDS ORDERED: CLOP75TA2 PO (08:07)
[2025-09-07] MEDS ORDERED: PRES10CA2 PO (08:07)
[2025-09-07] MEDS ORDERED: ESZO1TAB5 PO (08:07)
[2025-09-07] MEDS ORDERED: SIMV40TA20 PO (08:07)
[2025-09-07] MEDS ORDERED: BISO1TAB18 PO (08:07)
[2025-09-07] MEDS ORDERED: FEXO-63 PO (08:07)
[2025-09-07] MEDS ORDERED: NITR0.4S14 SL (08:08)
[2025-09-07] MEDS ORDERED: HOME MED LIST COMPLETE! XX SCH (08:10)
[2025-09-07] MEDS: CLOPIDOGREL 75 MG TAB PO SCH (08:56)
[2025-09-07] MEDS: APIXABAN 5 MG TAB PO SCH (08:56)
[2025-09-07] MEDS: ESCITALOPRAM OXALATE 10 MG TABLET PO SCH (12:57)
[2025-09-07] MEDS: SIMVASTATIN 40 MG TAB PO SCH (12:57)
[2025-09-07] MEDS: EZETIMIBE 10 MG TABLET PO SCH (22:43)
[2025-09-08 03:50] VITALS: BP 140/58; TEMP 97.6; O2SAT 100
[2025-09-08 06:39] LABS: BASO # 0.0 10^3/uL (0.0-0.2); BASO % 0.5 % (0.0-1.0); EOS # 0.4 10^3/uL (0.0-0.5); EOS % 4.3 % (0.0-3.0); LYMPH # 2.6 10^3/uL (1.5-5.0); LYMPH % 29.3 % (24.0-44.0); MONO # 0.9 10^3/uL (0.0-0.8); MONO % 9.8 % (2.0-8.0); NEUTROPHILS # 4.9 10^3/uL (1.5-8.5); NEUTROPHILS % 55.8 % (36.0-66.0); PLATELET COUNT, AUTOMATED 246 10^3/uL (150-450)
[2025-09-08 07:01] LABS: CALCIUM LEVEL 9.0 MG/DL (8.3-10.6); CARBON DIOXIDE LEVEL 28.0 MMOL/L (20-31); CHLORIDE LEVEL 103.0 MMOL/L (98-107); CREATININE FOR GFR 0.77 MG/DL (0.55-1.30); GLOMERULAR FILTRATION RATE 80.4 (>39); POTASSIUM SERUM 4.1 MMOL/L (3.5-5.1); SODIUM LEVEL 143.0 MMOL/L (136-145)
[2025-09-08 07:44] VITALS: BP 127/58; TEMP 97.2; O2SAT 97
[2025-09-08] MEDS ORDERED: ELIQ5TAB PO (08:02)
[2025-09-08] MEDS ORDERED: LISI5TAB11 PO (08:06)
[2025-09-08] MEDS ORDERED: DIGO0.123 PO (08:06)
[2025-09-08] MEDS: DIGOXIN 0.25 MG TAB PO SCH (08:49)
[2025-09-08 08:50] VITALS: BP 127/58
== END 2025-09-08 09:57 | disposition home or self-care (01) ==
LOC: M ED 22:08 → M ED INP 22:09 → M PCU 09-08 03:42
PROVIDERS: ADMIT Internal Medicine; ATTEND Internal Medicine
DX: I48.0 Paroxysmal atrial fibrillation (principal); I10 Essential (primary) hypertension; I25.10 Atherosclerotic heart disease of native coronary artery without angina pectoris; Z98.61 Coronary angioplasty status; Z85.51 Personal history of malignant neoplasm of bladder; E11.9 Type 2 diabetes mellitus without complications; E78.5 Hyperlipidemia, unspecified; Z86.73 Personal history of transient ischemic attack (TIA), and cerebral infarction without residual deficits; F32.A Depression, unspecified; Z79.01 Long term (current) use of anticoagulants; Z79.84 Long term (current) use of oral hypoglycemic drugs; Z79.899 Other long term (current) drug therapy
CPT/HCPCS: 36415; 71045; 71275; 80048; 82550; 82553; 83735; 84439; 84443; 84484; 85025; 85610; 93005; 93041; 93306; 94760; 96374; 96375; 96376; 99285; G0378; J0616; J1160; J1815; Q9967

== ENCOUNTER 2025-10-02 09:55 | Emergency (ER) | payer MEDICARE, OTHER ==
[~2025-10-02] VITALS: Ht 157.5 cm; Wt 78.8 kg
[~2025-10-02 09:55] MED LIST changes: +BISO1TAB18 PO; +DIGO0.123 PO; +ELIQ5TAB PO; +ESZO1TAB5 PO; +FEXO-63 PO; +LISI5TAB11 PO; +NITR0.4S14 SL; +PRES10CA2 PO; +VITA500065 PO
[2025-10-02 10:42] LABS: BASO # 0.0 10^3/uL (0.0-0.2); BASO % 0.4 % (0.0-1.0); EOS # 0.3 10^3/uL (0.0-0.5); EOS % 3.1 % (0.0-3.0); LYMPH # 1.9 10^3/uL (1.5-5.0); LYMPH % 20.2 % (24.0-44.0); MONO # 1.0 10^3/uL (0.0-0.8); MONO % 10.1 % (2.0-8.0); NEUTROPHILS # 6.2 10^3/uL (1.5-8.5); NEUTROPHILS % 65.9 % (36.0-66.0); PLATELET COUNT, AUTOMATED 248 10^3/uL (150-450)
[2025-10-02 11:10] LABS: CK-MB VALUE MASS 4.9 NG/ML (<3.6)
[2025-10-02 11:12] LABS: CPK CREATINE PHOSPHOKINASE 131 U/L (34-145); INR 1.24; MB/CK RELATIVE INDEX 3.74 (< OR =4)
[2025-10-02 11:13] LABS: ALT/SGPT 14 U/L (7.0-40); AST/SGOT 19 U/L (<34); CALCIUM LEVEL 8.8 MG/DL (8.3-10.6); CARBON DIOXIDE LEVEL 29 MMOL/L (20-31); CHLORIDE LEVEL 103 MMOL/L (98-107); CREATININE FOR GFR 0.69 MG/DL (0.55-1.30); GLOMERULAR FILTRATION RATE > 90.0 (>39); MAGNESIUM LEVEL 1.6 MG/DL (1.8-2.4); POTASSIUM SERUM 3.8 MMOL/L (3.5-5.1); SODIUM LEVEL 141 MMOL/L (136-145)
[2025-10-02 11:14] LABS: FREE T4 1.08 NG/DL (0.89-1.76)
[2025-10-02 11:16] LABS: KETONE, URINE AUTO RFX NEGATIVE (NEGATIVE); LEUKOCYTE ESTERASE UR AUTO RFX NEGATIVE (NEGATIVE); MUCUS, URINE RFX SMALL (NEGATIVE); NITRITE, URINE AUTO RFX NEGATIVE (NEGATIVE); RBC, URINE AUTO RFX 1 /HPF (0-3); SQUAM EPITHELIAL CELL UR AURFX 4 /HPF (0-6); WBC, URINE AUTO RFX 6 /HPF (0-3)
[2025-10-02] MEDS ORDERED: LISI5TAB11 PO (12:08)
[2025-10-02] MEDS ORDERED: DIGO0.123 PO (12:08)
[2025-10-02] MEDS ORDERED: ELIQ5TAB PO (12:08)
[2025-10-02] MEDS ORDERED: [UNRECOGNIZED DRUG - CODE] SL (12:08)
[2025-10-02] MEDS ORDERED: D-101000 PO (12:08)
[2025-10-02] MEDS ORDERED: HOME MED LIST COMPLETE! XX SCH (12:10)
[2025-10-02 13:04] LABS: CK-MB VALUE MASS 4.9 NG/ML (<3.6)
[2025-10-02 13:07] LABS: CPK CREATINE PHOSPHOKINASE 135.0 U/L (34-145); MB/CK RELATIVE INDEX 3.62 (< OR =4)
[2025-10-02] MEDS: MAG SULF 1GM/100ML (MAG RUN) 1 GM in IV 1 EA IV ONE (13:27)
[2025-10-02 14:21] LABS: CK-MB VALUE MASS 5.2 NG/ML (<3.6)
[2025-10-02 14:26] LABS: CPK CREATINE PHOSPHOKINASE 130.0 U/L (34-145); MB/CK RELATIVE INDEX 4.0 (< OR =4)
[2025-10-02] MEDS: NS (Normal Saline) 0.9% 1,000 ML IV ONE (16:36)
[2025-10-02 18:30] VITALS: O2SAT 94
[2025-10-02 18:37] VITALS: BP 134/83; TEMP 97.4
== END 2025-10-02 18:43 | disposition short-term general hospital (02) ==
LOC: M ED 09:55
DX: I21.4 Non-ST elevation (NSTEMI) myocardial infarction (principal); I47.10 Supraventricular tachycardia, unspecified; I10 Essential (primary) hypertension; E78.5 Hyperlipidemia, unspecified; F41.9 Anxiety disorder, unspecified; F32.A Depression, unspecified; Z86.79 Personal history of other diseases of the circulatory system; Z87.891 Personal history of nicotine dependence; Z88.8 Allergy status to other drugs, medicaments and biological substances; Z79.01 Long term (current) use of anticoagulants; Z79.899 Other long term (current) drug therapy; Z79.4 Long term (current) use of insulin
CPT/HCPCS: 71045; 80047; 80048; 80076; 81001; 82550; 82553; 83690; 83735; 84439; 84443; 84484; 85025; 85610; 85730; 93005; 93041; 94760; 96365; 96366; 99285; J3475

== ENCOUNTER → 2025-10-10 | Outpatient (REF) | payer MEDICARE, OTHER ==
[~2025-10-10] MED LIST changes: +D-101000 PO; +[UNRECOGNIZED DRUG - CODE] SL
== END ==
LOC: M LAB REF 11:50
PROVIDERS: ATTEND Family Medicine
DX: R19.7 Diarrhea, unspecified (principal)